=== PATIENT | male | born 1955 | race Caucasian/White ===

== ENCOUNTER → 2019-07-19 | Outpatient (CLI) | payer SELFPAY | PROVIDERS: Family Provider Nurse Practitioner; Visit Provider Internal Medicine Medical Oncology | DX: C91.10 Chronic lymphocytic leukemia of B-cell type not having achieved remission (principal); E03.9 Hypothyroidism, unspecified; I10 Essential (primary) hypertension; E78.5 Hyperlipidemia, unspecified; E11.9 Type 2 diabetes mellitus without complications; R97.20 Elevated prostate specific antigen [PSA] | CPT/HCPCS: 36415; 80053; 83036; 83615; 84443; 85025; 99213 ==

== ENCOUNTER → 2019-09-05 09:35 | Outpatient (BNVA) | payer BC, SELFPAY | PROVIDERS: Family Provider Nurse Practitioner; PCP Nurse Practitioner; Visit Provider Urology | DX: R97.20 Elevated prostate specific antigen [PSA] (principal) | CPT/HCPCS: 81001; 84153 ==

== ENCOUNTER 2019-10-07 13:55 | Outpatient (CLI) | payer BC, SELFPAY ==
[2019-10-07 14:43] LABS: Estmated Average Glucose 192; Hemoglobin A1C 8.3 % (4.0-6.0)
[2019-10-07 14:50] LABS: Alanine Aminotransferase 37 U/L (0-41); Albumin Level 4.6 g/dL (3.5-5.2); Alkaline Phosphatase 86 IU/L (40-130); Anion Gap 17.6 (5-19); Aspartate Amino Transferase 26 U/L (0-40); Blood Urea Nitrogen 15 mg/dL (8-23); Calcium 10.2 mg/dL (8.5-10.5); Carbon Dioxide 26 mmol/L (22-29); Chloride 103 mmol/L (98-107); Globulin 2.9 g/dL (1.3-4.6); Glomerular Filtration Rate 75.7 mL/min (90-130); Glucose 137 mg/dL (65-115); Osmolality Calculated 292 mOsm/kg (285-295); Potassium 4.6 mmol/L (3.5-5.1); Sodium 142 mmol/L (136-145); Thyroid Stimulating Hormone 4.11 uIU/mL (0.27-4.20); Total Bilirubin 0.5 mg/dL (0.15-1.2); Total Protein 7.5 g/dL (6.6-8.7)
== END 2019-10-07 13:56 | disposition home or self-care (01) ==
LOC: LAB 13:58
PROVIDERS: Family Provider Nurse Practitioner; PCP Nurse Practitioner; Visit Provider Internal Medicine Medical Oncology
DX: R97.20 Elevated prostate specific antigen [PSA] (principal); E11.65 Type 2 diabetes mellitus with hyperglycemia; E03.8 Other specified hypothyroidism
CPT/HCPCS: 80053; 83036; 84443

== ENCOUNTER 2019-11-09 16:18 | Outpatient (CLI) | payer BC, SELFPAY ==
[2019-11-09 18:10] LABS: Basophils # 0.2 10^3/uL (0.0-0.1); Basophils % 0.2 %; Eosinophils # 0.8 10^3/uL (0.0-0.8); Eosinophils % 0.8 %; Hematocrit 45.8 % (42.0-52.0); Hemoglobin 14.3 g/dL (11.7-16.6); Lymphocytes # 99.9 10^3/uL (0.8-4.8); Lymphocytes % 89.3 %; Mean Corpuscular HGB Conc 31.2 g/dL (30.0-36.0); Mean Corpuscular Hemoglobin 29.1 pg (28.0-34.0); Mean Corpuscular Volume 93.1 fL (80-94); Mean Platelet Volume 11.1 fL (7.4-10.4); Monocytes # 4.4 10^3/uL (0.2-0.9); Monocytes % 3.9 %; Neutrophils # 6.2 10^3/uL (1.8-7.7); Neutrophils % 5.5 %; Nucleated Red Blood Cells % 0 %; Platelet Count 218 10^3/cmm (130-400); Red Blood Count 4.92 10^6/uL (4.1-5.3)
[2019-11-09 19:08] LABS: Slide Review Slide Review Perform; White Blood Count 111.9 10^3/uL (4.0-10.0)
[2019-11-09 19:26] LABS: Estmated Average Glucose 194; Hemoglobin A1C 8.4 % (4.0-6.0)
[2019-11-09 19:38] LABS: Alanine Aminotransferase 29 U/L (0-41); Albumin Level 4.4 g/dL (3.5-5.2); Alkaline Phosphatase 92 IU/L (40-130); Anion Gap 16.5 (5-19); Aspartate Amino Transferase 32 U/L (0-40); Blood Urea Nitrogen 8 mg/dL (8-23); Calcium 9.5 mg/dL (8.5-10.5); Carbon Dioxide 25 mmol/L (22-29); Chloride 100 mmol/L (98-107); Globulin 2.8 g/dL (1.3-4.6); Glomerular Filtration Rate 85.2 mL/min (90-130); Glucose 165 mg/dL (65-115); Lactate Dehydrogenase 325 U/L (135-225); Osmolality Calculated 284 mOsm/kg (285-295); Potassium 4.5 mmol/L (3.5-5.1); Sodium 137 mmol/L (136-145); Thyroid Stimulating Hormone 4.75 uIU/mL (0.27-4.20); Total Bilirubin 0.3 mg/dL (0.15-1.2); Total Protein 7.2 g/dL (6.6-8.7)
== END 2019-11-09 16:19 | disposition home or self-care (01) ==
LOC: ONCMED 16:20
PROVIDERS: Family Provider Nurse Practitioner; PCP Nurse Practitioner; Visit Provider Internal Medicine Medical Oncology
DX: C91.10 Chronic lymphocytic leukemia of B-cell type not having achieved remission (principal); E03.9 Hypothyroidism, unspecified; E11.9 Type 2 diabetes mellitus without complications
CPT/HCPCS: 36415; 80053; 83036; 83615; 84443; 85025

== ENCOUNTER 2020-02-27 09:49 | Outpatient (CLI) | payer BC, SELFPAY ==
[2020-02-27 10:59] LABS: Basophils # 0.1 10^3/uL (0.0-0.1); Basophils % 0.1 %; Eosinophils # 0.6 10^3/uL (0.0-0.8); Eosinophils % 0.4 %; Hematocrit 43.6 % (42.0-52.0); Hemoglobin 12.8 g/dL (11.7-16.6); Lymphocytes % 92.5 %; Mean Corpuscular HGB Conc 29.4 g/dL (30.0-36.0); Mean Corpuscular Hemoglobin 27.8 pg (28.0-34.0); Mean Corpuscular Volume 94.6 fL (80-94); Mean Platelet Volume 10.5 fL (7.4-10.4); Monocytes # 3.8 10^3/uL (0.2-0.9); Monocytes % 2.6 %; Neutrophils # 5.92 10^3/uL (1.8-7.7); Nucleated Red Blood Cells % 0 %; Platelet Count 195 10^3/cmm (130-400); Red Blood Count 4.61 10^6/uL (4.1-5.3); Red Cell Distribution Width 15.1 % (12.1-15.1)
[2020-02-27 11:18] LABS: Alanine Aminotransferase 25 U/L (0-41); Albumin Level 4.2 g/dL (3.5-5.2); Alkaline Phosphatase 96 IU/L (40-130); Anion Gap 11.7 (5-19); Aspartate Amino Transferase 17 U/L (0-40); Blood Urea Nitrogen 17 mg/dL (8-23); Calcium 9.1 mg/dL (8.5-10.5); Carbon Dioxide 29 mmol/L (22-29); Chloride 103 mmol/L (98-107); Globulin 2.8 g/dL (1.3-4.6); Glomerular Filtration Rate 75.5 mL/min (90-130); Glucose 223 mg/dL (65-115); Lactate Dehydrogenase 320 U/L (135-225); Osmolality Calculated 291 mOsm/kg (285-295); Potassium 4.7 mmol/L (3.5-5.1); Sodium 139 mmol/L (136-145); Total Bilirubin 0.5 mg/dL (0.15-1.2)
[2020-02-27 11:53] LABS: Lymphocytes # 134.5 10^3/uL (0.8-4.8); White Blood Count 145.4 10^3/uL (4.0-10.0)
[2020-02-27 11:54] LABS: Slide Review Slide Review Perform
[2020-02-27 12:14] LABS: Estmated Average Glucose 252; Hemoglobin A1C 10.4 % (4.0-6.0)
[2020-02-27 12:39] LABS: Thyroid Stimulating Hormone 3.24 uIU/mL (0.27-4.20)
--- NOTE | 2020-02-28 07:14 | ONC FU_ITS ---
Dr. Lopez Patient Follow-Up Note Patient: Paulo Musa Unit #: [id number]: 1955 Dicatated By: Ashish Lopez M.D.Date of Visit:Feb 27, 2020 Onc Med Follow-up/Prog Note Chief Complaint: Chronic lymphocytic leukemia. History of Present Illness: This is a 64 year-old man with chronic lymphocytic leukemia, Williamson stage II. He had a scheduled follow-up visit with Siobhan Albert on 09/20/2018. At that time he was complaining of fatigue, and he also reported having pain in the back of his head. His laboratory studies prior to the visit, from 09/17/2018, included CBC showed a significantly elevated white blood cell count at 55,600. The differential included 82% lymphocytes, 14% neutrophils, and 2% monocytes. The hemoglobin was normal at 15.1 g with hematocrit 45.4%. The platelet count was 198,000. The comprehensive metabolic profile showed normal renal function with BUN 8 and creatinine 0.9 mg/dL. Liver enzymes were normal. B12 level was normal. TSH was slightly elevated 5.00 mIU/mL. His screening PSA was also mildly elevated at 7.90 ng/mL. Further evaluation with CT scans of the chest, abdomen, and pelvis on 09/27/2018 showed mild bilateral axillary lymphadenopathy, measuring up to 11 mm on the left and up to 17 mm on the right. There was no hilar or mediastinal adenopathy or mass noted. The spleen was noted to be enlarged at 15.7 cm. There was mild periaortic, inguinal, and iliac chain lymphadenopathy, the largest measuring the range of 13-14 mm. Contrast-enhanced head CT on 09/30/2018 showed a large area of decreased attenuation in the anterior left middle cranial fossa consistent with an arachnoid cyst. It measured 4.6 x 5.8 cm. There was slight mass effect on the left temporal lobe. There was no evidence of enhancing mass or other acute findings. I had seen him initially on 10/20/2018. Further evaluation with bone marrow aspiration/biopsy on 10/28/2018 showed hypercellular marrow with extensive lymphoproliferative process comprising over 80% of the marrow cellularity. Flow cytometry showed a monotypic B-cell population which were positive for CD19, CD20, CD5, CD23, and CD200. They were negative for CD10 and CD123. The findings were felt to be consistent with atypical chronic lymphocytic leukemia. The FISH panel for CLL was unrevealing. 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 Overall, the clinical findings were consistent with Williamson stage II disease. As he was not overtly symptomatic, observation/expectant management was recommended. His other medical illnesses include hypertension, hyperlipidemia, and type II diabetes. He is a nonsmoker. INTERIM HISTORY: Repeat CT scans of the chest, abdomen, and pelvis on 04/04/2019 showed moderate progression of lymphadenopathy within the abdomen and pelvis compared to study from September 2018. The size and number of axillary lymph nodes also was noted to have increased. There did not appear to be any bulky lymphadenopathy, though. There was moderate splenomegaly, but unchanged. As of his follow-up visit in March 2019 the white blood cell count had increased to 74,000, with normal hemoglobin/hematocrit levels and normal platelet count. In the absence of any definite indication for treatment, he continued on observation/expectant management. He is seen for a follow-up visit. He complains that he has been getting little weaker all the time, though as yet he still has normal activity. His ECOG score is 0. He has good appetite. He has no fever or night sweats. He does complain that he is more short of breath. He does not have cough, he does not complain of chest pain. He has no GI complaints other than his bowels tend to be loose with metformin. He has been having more difficulty controlling his bladder, as he is having more frequent urination. He does see Dr. Babcock. He was having some bursitis problems with his left shoulder, though recently that has been better. He has no other joint or bone pain. He has no focal neurologic symptoms. Medications: Jardiance 1 Tablet (of 25 mg) Oral daily, Levothyroxine Sodium 1 Tablet (of 75 mcg) Oral daily, Lisinopril 1 Tablet (of 2.5 mg) Oral daily, metFORMIN HCl 1 Tablet (of 500 mg) Oral b.i.d., Ozempic 1 Subcutaneous q 7 days, Pravastatin Sodium 1 Tablet (of 20 mg) Oral daily Allergies: No Known Allergies. Review of Systems: Constitutional - He says he is feeling a little weaker all the time. He still has normal activity. Appetite is good and weight is stable. No fever or night sweats. ECOG score is 0, ENMT - No sinus congestion/drainage. No mouth sores. No sore throat or difficulty swallowing, Endocrine - He has uncontrolled hyperglycemia. He has been having increase thrist and urinary frequency, Hematologic/Lymphatic - No abnormal bruising or bleeding, Respiratory - No shortness of breath. No cough. No pleuritic pain or hemoptysis, Cardiovascular - No angina pain. No palpitations, Gastrointestinal - No nausea or vomiting. No heartburn or acid reflux. No diarrhea or constipation. No blood in the stool or black stools, Genitourinary (M) - No dysuria or hematuria. He has urinary frequency both day and night. No urgency or incontinence, Musculoskeletal - He was having problems with bursitis in his left shoulder, but recently that has been better. He has no other joint or bone pain, Integumentary - No skin complications, Neurologic - No headache, but he occasionally does have pressure feeling in his head. He does not complain of dizziness. No numbness or tingling. No other focal neurologic symptoms, Psychiatric - No anxiety or depression. No insomnia. Vital Signs: Performed on Feb 27, 2020 11:38 Height - 72.00 in Weight - 305.2 lbs (LOW) BSA - 2.55 sq.m BMI - 41.39 (HIGH) Temperature - 97.6 F (LOW) Pulse - 74 /min Respiration - 20 /min BP - 140/67 mm(hg) O2 Sat - 95 % (LOW) Pain - 1 Physical Examination: Constitutional - He looks pretty good generally, Eyes - Sclerae nonicteric. Conjunctivae clear, ENMT - No lesions noted in the oral cavity, Hematologic/Lymphatic - There is anterior and posterior cervical adenopathy bilaterally and there are somewhat larger occipital area nodes. There are small axillary lymphadenopathy bilaterally, Respiratory - Lungs are clear with good air movement bilaterally, Cardiovascular - Heart rhythm is regular. There is a II/ systolic murmur. There is no gallop, or rub noted, Abdomen - Distended. Liver and spleen are not enlarged. There is no abdominal mass or ascites noted. I do not feel any inguinal adenopathy, Extremities - No edema, Neurologic - No focal neurologic deficits noted. Lab/Imaging: Test performed on Feb 27, 2020 10:08 TSH 3.24 uIU/mL Hemoglobin A1C % 10.4 % Test performed on Feb 27, 2020 10:00 LDH (Total) 320 U/L Sodium 139 mmol/L Potassium 4.7 mmol/L Chloride 103 mmol/L CO2 29 mmol/L Anion Gap 11.7 BUN 17 mg/dL Creatinine 1.0 mg/dL Cr Clearance (Est) 148.05 mL/min eGFR 75.5 mL/min Glucose 223 mg/dL Calcium 9.1 mg/dL Protein, Total 7.0 g/dL Albumin 4.2 g/dL Globulin 2.8 g/dL Bilirubin, Total 0.5 mg/dL ALT (SGPT) 25 U/L AST (SGOT) 17 U/L Alkaline Phosphatase 96 IU/L WBC 145.4 10 3/uL RBC 4.61 10 6/uL HGB 12.8 g/dL HCT 43.6 % MCV 94.6 fL MCH 27.8 pg MCHC 29.4 g/dL RDW 15.1 % Platelet Count 195 10 3/cmm MPV 10.5 fL Neutrophils 5.92 10 3/uL Lymphocytes 134.5 10 3/uL Monocytes 3.8 10 3/uL Eosinophils 0.6 10 3/uL Basophils 0.1 10 3/uL Neutrophil % 4.0 % Lymphocyte % 92.5 % Monocyte % 2.6 % Eosinophil % 0.4 % Basophils % 0.1 % NRBC % 0 % CBC Slide Review Slide Review Perform SLIDE REVIEW AGREES WITH AUTOMATED RESULTS Impression: 1. Patient with chronic lymphocytic leukemia. Based on the CT findings, his disease was Williamson stage II at initial diagnosis in October 2018. He did not appear to be symptomatic. 2. He had CT evidence of a left middle cranial fossa arachnoid cyst measuring 4.6 x 5.8 cm. His other medical illnesses include: 4. Hypertension. 5. Hyperlipidemia. 6. Type II diabetes. 7. He has history of right foot drop following back surgery in 2004. 8. He has had mildly elevated PSA level and mild voiding symptoms. Needle biopsies of the prostate on 03/04/2019 showed benign pathology. In the setting of early stage, asymptomatic chronic lymphocytic leukemia, observation/expectant management was recommended. During initial follow-up there was gradual increase in his lymphocyte count as well as some progression of the lymphadenopathy by CT scan. As he was still not overtly symptomatic, he had continued observation/expectant management. Since his last visit there has been a more significant increase in his lymphocyte count. There also has been further progression of his peripheral lymphadenopathy, and there has been a slight drop in his hemoglobin/hematocrit levels. He also has been showing some decline in his performance status. As such, I suspect that his CLL is becoming symptomatic. However, he also has uncontrolled diabetes, and that also could be a contributing factor. Plan: With his CLL showing significant progression and probably now symptomatic, I did recommend that he consider starting treatment. I reviewed options, the main ones being a trial of therapy with either ibrutinib or acalabrutinib or the venetoclax/obinutuzumab regimen. At this point he prefers to wait at least another 3 months before starting treatment. I have no objection to that, but in the meantime we will need to address his diabetes management, and I will discuss that with Siobhan Albert. Signed By: Ashish Lopez M.D. <<Signature on File>>
== END 2020-02-27 09:50 | disposition home or self-care (01) ==
LOC: ONCMED 09:52
PROVIDERS: PCP Nurse Practitioner; Visit Provider Internal Medicine Medical Oncology
DX: C91.10 Chronic lymphocytic leukemia of B-cell type not having achieved remission (principal); I10 Essential (primary) hypertension; E78.5 Hyperlipidemia, unspecified; E11.9 Type 2 diabetes mellitus without complications; R97.20 Elevated prostate specific antigen [PSA]; E11.65 Type 2 diabetes mellitus with hyperglycemia; R35.0 Frequency of micturition; Z79.84 Long term (current) use of oral hypoglycemic drugs
CPT/HCPCS: 80053; 83036; 83615; 84443; 85025; 99214

== ENCOUNTER → 2020-02-29 16:36 | Outpatient (BNVA) | payer BC, SELFPAY | PROVIDERS: PCP Nurse Practitioner; Visit Provider Urology | DX: R97.20 Elevated prostate specific antigen [PSA] (principal); N40.1 Benign prostatic hyperplasia with lower urinary tract symptoms | CPT/HCPCS: 81001; 84153 ==

== ENCOUNTER 2020-05-28 08:57 | Outpatient (CLI) | payer BC, SELFPAY ==
[2020-05-28 09:43] LABS: Basophils # 0.1 10^3/uL (0.0-0.1); Basophils % 0.1 %; Eosinophils # 0.6 10^3/uL (0.0-0.8); Eosinophils % 0.4 %; Hematocrit 42.7 % (42.0-52.0); Hemoglobin 12.6 g/dL (11.7-16.6); Lymphocytes % 93.2 %; Mean Corpuscular HGB Conc 29.5 g/dL (30.0-36.0); Mean Corpuscular Hemoglobin 27.9 pg (28.0-34.0); Mean Corpuscular Volume 94.5 fL (80-94); Mean Platelet Volume 10.2 fL (7.4-10.4); Monocytes # 4.5 10^3/uL (0.2-0.9); Monocytes % 2.7 %; Neutrophils % 3.4 %; Nucleated Red Blood Cells % 0 %; Platelet Count 193 10^3/cmm (130-400); Red Blood Count 4.52 10^6/uL (4.1-5.3); Red Cell Distribution Width 15.2 % (12.1-15.1)
[2020-05-28 10:11] LABS: Alanine Aminotransferase 25 U/L (0-41); Alkaline Phosphatase 103 IU/L (40-130); Anion Gap 13.8 (5-19); Aspartate Amino Transferase 27 U/L (0-40); Blood Urea Nitrogen 14 mg/dL (8-23); Calcium 9.1 mg/dL (8.5-10.5); Carbon Dioxide 25 mmol/L (22-29); Chloride 107 mmol/L (98-107); Globulin 2.6 g/dL (1.3-4.6); Glomerular Filtration Rate 75.5 mL/min (90-130); Glucose 142 mg/dL (65-115); Lactate Dehydrogenase 353 U/L (135-225); Osmolality Calculated 295 mOsm/kg (285-295); Potassium 4.8 mmol/L (3.5-5.1); Sodium 141 mmol/L (136-145); Total Bilirubin 0.4 mg/dL (0.15-1.2); Total Protein 6.6 g/dL (6.6-8.7)
[2020-05-28 10:37] LABS: Lymphocytes # 153.8 10^3/uL (0.8-4.8)
[2020-05-28 10:39] LABS: White Blood Count 164.9 10^3/uL (4.0-10.0)
[2020-05-28 12:40] LABS: Thyroid Stimulating Hormone 1.94 uIU/mL (0.27-4.20)
[2020-05-28 12:52] LABS: Estmated Average Glucose 186; Hemoglobin A1C 8.1 % (4.0-6.0)
--- NOTE | 2020-05-29 07:23 | ONC FU_ITS ---
Dr. Lopez Patient Follow-Up Note Patient: Paulo Musa Unit #: [id number]: 1955 Dicatated By: Ashish Lopez M.D.Date of Visit:May 28, 2020 Onc Med Follow-up/Prog Note Chief Complaint: Chronic lymphocytic leukemia. History of Present Illness: This is a 64 year-old man with chronic lymphocytic leukemia, Williamson stage II. He had a scheduled follow-up visit with Siobhan Albert on 09/20/2018. At that time he was complaining of fatigue, and he also reported having pain in the back of his head. His laboratory studies prior to the visit, from 09/17/2018, included CBC showed a significantly elevated white blood cell count at 55,600. The differential included 82% lymphocytes, 14% neutrophils, and 2% monocytes. The hemoglobin was normal at 15.1 g with hematocrit 45.4%. The platelet count was 198,000. The comprehensive metabolic profile showed normal renal function with BUN 8 and creatinine 0.9 mg/dL. Liver enzymes were normal. B12 level was normal. TSH was slightly elevated 5.00 mIU/mL. His screening PSA was also mildly elevated at 7.90 ng/mL. Further evaluation with CT scans of the chest, abdomen, and pelvis on 09/27/2018 showed mild bilateral axillary lymphadenopathy, measuring up to 11 mm on the left and up to 17 mm on the right. There was no hilar or mediastinal adenopathy or mass noted. The spleen was noted to be enlarged at 15.7 cm. There was mild periaortic, inguinal, and iliac chain lymphadenopathy, the largest measuring the range of 13-14 mm. Contrast-enhanced head CT on 09/30/2018 showed a large area of decreased attenuation in the anterior left middle cranial fossa consistent with an arachnoid cyst. It measured 4.6 x 5.8 cm. There was slight mass effect on the left temporal lobe. There was no evidence of enhancing mass or other acute findings. I had seen him initially on 10/20/2018. Further evaluation with bone marrow aspiration/biopsy on 10/28/2018 showed hypercellular marrow with extensive lymphoproliferative process comprising over 80% of the marrow cellularity. Flow cytometry showed a monotypic B-cell population which were positive for CD19, CD20, CD5, CD23, and CD200. They were negative for CD10 and CD123. The findings were felt to be consistent with atypical chronic lymphocytic leukemia. The FISH panel for CLL was unrevealing. 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 Overall, the clinical findings were consistent with Williamson stage II disease. As he was not overtly symptomatic, observation/expectant management was recommended. His other medical illnesses include hypertension, hyperlipidemia, and type II diabetes. He is a nonsmoker. INTERIM HISTORY: Repeat CT scans of the chest, abdomen, and pelvis on 04/04/2019 showed moderate progression of lymphadenopathy within the abdomen and pelvis compared to study from September 2018. The size and number of axillary lymph nodes also was noted to have increased. There did not appear to be any bulky lymphadenopathy, though. There was moderate splenomegaly, but unchanged. As of his follow-up visit in March 2019 the white blood cell count had increased to 74,000, with normal hemoglobin/hematocrit levels and normal platelet count. In the absence of any definite indication for treatment, he continued on observation/expectant management. At his follow-up visit in February 2020 there was further increase in the white blood cell count to 145,000. His hemoglobin was down slightly at 12.8 g with platelet count normal at 195,000. He continued to have significant fatigue, but he otherwise appeared stable clinically. At that point I did talk to him about the possibility of starting treatment, but he preferred to continue observation. He is seen for a follow-up visit. He still feels pretty good generally, though his energy is low. He is still working. ECOG score is 1. Appetite is somewhat variable. He has lost weight. He does not have fever or night sweats. He has shortness of breath with more strenuous activity. He does not complain of cough and he has not been having chest pain. He has no GI complaints. Bladder function remains adequate with tamsulosin. He has pain in his left shoulder, attributable to bursitis. He has no other joint or bone pain. He has developed some numbness in the index and middle fingertips of the left hand. He has no other focal neurologic symptoms. Medications: Jardiance 1 Tablet (of 25 mg) Oral daily, Levothyroxine Sodium 1 Tablet (of 75 mcg) Oral daily, Lisinopril 1 Tablet (of 2.5 mg) Oral daily, metFORMIN HCl 1 Tablet (of 500 mg) Oral b.i.d., Ozempic 1 Subcutaneous q 7 days, Pravastatin Sodium 1 Tablet (of 20 mg) Oral daily, Tamsulosin HCl 1 Capsule (of 0.4 mg) Oral daily Allergies: No Known Allergies. Review of Systems: Constitutional - He has low energy, but he is still working. Appetite is variable. Weight is down a few pounds. He has no fever or night sweats. ECOG score is 1, ENMT - He has allergy related sinus symptoms. No mouth sores. No sore throat or difficulty swallowing, Hematologic/Lymphatic - No abnormal bruising or bleeding, Respiratory - He has shortness of breath with more strenuous activity. No cough. No pleuritic pain or hemoptysis, Cardiovascular - No angina pain. No palpitations, Gastrointestinal - No nausea or vomiting. No heartburn or acid reflux. No diarrhea or constipation. No blood in the stool or black stools, Genitourinary (M) - He has some difficulty voiding, but bladder function has improved somewhat with tamsulosin, Musculoskeletal - He has some bursitis in his left shoulder. He has no other joint or bone pain, Integumentary - No skin rash, Neurologic - No headache or dizziness. He has developed some numbness in the index and middle fingertips of the left hand. No other focal neurologic symptoms, Psychiatric - No anxiety or depression. No insomnia. Vital Signs: Performed on May 28, 2020 10:36 Height - 72.00 in Weight - 288.2 lbs (LOW) BSA - 2.49 sq.m BMI - 39.09 (HIGH) Temperature - 97.6 F (LOW) Pulse - 65 /min Respiration - 22 /min BP - 117/63 mm(hg) O2 Sat - 95 % (LOW) Pain - 0 Physical Examination: Constitutional - He looks pretty good generally, Eyes - Sclerae nonicteric. Conjunctivae clear, ENMT - No lesions noted in the oral cavity, Hematologic/Lymphatic - There is bilateral cervical, clavicular, and axillary lymphadenopathy, but not bulky, Respiratory - Lungs are clear with good air movement bilaterally, Cardiovascular - Heart rhythm is regular. There is a II/ systolic murmur. There is no gallop, or rub noted, Abdomen - Distended. Liver and spleen are not enlarged. There is no abdominal mass or ascites noted. There is no inguinal adenopathy noted, Extremities - No edema, Neurologic - No focal neurologic deficits noted. Lab/Imaging: Test performed on May 28, 2020 09:09 LDH (Total) 353 U/L Sodium 141 mmol/L TSH 1.94 uIU/mL Potassium 4.8 mmol/L Chloride 107 mmol/L Est Avg Glucose (eAG) 186 mg/dL CO2 25 mmol/L Anion Gap 13.8 BUN 14 mg/dL Creatinine 1.0 mg/dL Cr Clearance (Est) 139.81 mL/min eGFR 75.5 mL/min Glucose 142 mg/dL Osmolality - Calculated 295 mOsm/kg Calcium 9.1 mg/dL Protein, Total 6.6 g/dL Albumin 4.0 g/dL Globulin 2.6 g/dL Bilirubin, Total 0.4 mg/dL ALT (SGPT) 25 U/L AST (SGOT) 27 U/L Alkaline Phosphatase 103 IU/L Hemoglobin A1C % 8.1 % WBC 164.9 10 3/uL RBC 4.52 10 6/uL HGB 12.6 g/dL HCT 42.7 % MCV 94.5 fL MCH 27.9 pg MCHC 29.5 g/dL RDW 15.2 % Platelet Count 193 10 3/cmm MPV 10.2 fL Neutrophils 5.60 10 3/uL Lymphocytes 153.8 10 3/uL Monocytes 4.5 10 3/uL Eosinophils 0.6 10 3/uL Basophils 0.1 10 3/uL Neutrophil % 3.4 % Lymphocyte % 93.2 % Monocyte % 2.7 % Eosinophil % 0.4 % Basophils % 0.1 % NRBC % 0 % Impression: 1. Patient with chronic lymphocytic leukemia. Based on the CT findings, his disease was Williamson stage II at initial diagnosis in October 2018. He did not appear to be symptomatic. 2. He had CT evidence of a left middle cranial fossa arachnoid cyst measuring 4.6 x 5.8 cm. His other medical illnesses include: 4. Hypertension. 5. Hyperlipidemia. 6. Type II diabetes. 7. He has history of right foot drop following back surgery in 2003. 8. He has had mildly elevated PSA level and mild voiding symptoms. Needle biopsies of the prostate on 03/04/2019 showed benign pathology. In the setting of early stage, asymptomatic chronic lymphocytic leukemia, observation/expectant management was recommended. During initial follow-up there was gradual increase in his lymphocyte count as well as some progression of the lymphadenopathy by CT scan. As he was still not overtly symptomatic, he had continued observation/expectant management. During follow-up there has been evidence of progression of his CLL with increasing lymphocyte count and peripheral lymphadenopathy, development of mild anemia, and increasing fatigue. Plan: We again discussed the possibility of going ahead and starting treatment for the CLL. While there is no urgency, he is continuing to show progression, and he does appear to be having significant fatigue. I reviewed options which may include ibrutinib or acalabrutinib monotherapy versus the obinutuzumab/venetoclax combination. My recommendation would be for the latter, and he is agreeable. I will plan to start treatment sometime within the next few weeks, subject to verification of insurance coverage. In the meantime, he will be given a flu shot and Prevnar vaccination today, and is also advised to get Shingrix and tetanus within the next couple of weeks. Signed By: Ashish Lopez M.D. <<Signature on File>>
== END 2020-05-28 08:58 | disposition home or self-care (01) ==
LOC: ONCMED 09:00
PROVIDERS: PCP Nurse Practitioner; Visit Provider Internal Medicine Medical Oncology
DX: C91.10 Chronic lymphocytic leukemia of B-cell type not having achieved remission (principal); D72.820 Lymphocytosis (symptomatic); G93.0 Cerebral cysts; I10 Essential (primary) hypertension; E78.5 Hyperlipidemia, unspecified; E11.9 Type 2 diabetes mellitus without complications; R97.20 Elevated prostate specific antigen [PSA]; N39.43 Post-void dribbling; Z23 Encounter for immunization
CPT/HCPCS: 36415; 80053; 83036; 83615; 84443; 85025; 90471; 90670; 90686; 99214

== ENCOUNTER 2020-07-26 07:28 | Outpatient (CLI) | payer BC, SELFPAY ==
[2020-07-26 08:37] LABS: Hematocrit 42.1 % (42.0-52.0); Hemoglobin 12.1 g/dL (11.7-16.6); Mean Corpuscular HGB Conc 28.7 g/dL (30.0-36.0); Mean Corpuscular Hemoglobin 27.4 pg (28.0-34.0); Mean Corpuscular Volume 95.5 fL (80-94); Mean Platelet Volume 9.7 fL (7.4-10.4); Platelet Count 194 10^3/cmm (130-400); Red Blood Count 4.41 10^6/uL (4.1-5.3); Red Cell Distribution Width 15.6 % (12.1-15.1)
[2020-07-26 09:13] LABS: Estmated Average Glucose 177; Hemoglobin A1C 7.8 % (4.0-6.0)
[2020-07-26 09:16] LABS: Alanine Aminotransferase 38 U/L (0-41); Albumin Level 4.2 g/dL (3.5-5.2); Alkaline Phosphatase 115 IU/L (40-130); Anion Gap 12.5 (5-19); Aspartate Amino Transferase 36 U/L (0-40); Blood Urea Nitrogen 19 mg/dL (8-23); Calcium 9.5 mg/dL (8.5-10.5); Carbon Dioxide 26 mmol/L (22-29); Chloride 103 mmol/L (98-107); Globulin 2.3 g/dL (1.3-4.6); Glomerular Filtration Rate 67.6 mL/min (90-130); Glucose 185 mg/dL (65-115); Lactate Dehydrogenase 404 U/L (135-225); Osmolality Calculated 289 mOsm/kg (285-295); Potassium 5.5 mmol/L (3.5-5.1); Sodium 136 mmol/L (136-145); Thyroid Stimulating Hormone 4.61 uIU/mL (0.27-4.20); Total Bilirubin 0.4 mg/dL (0.15-1.2); Total Protein 6.5 g/dL (6.6-8.7)
[2020-07-26] MEDS: dexamethasone 20 MG in sodium chloride 0.9% 50 ML 187 MG IV (10:24)
[2020-07-26] MEDS: sodium chloride 0.9% 500 ML 999 ML IV (10:24)
[2020-07-26 10:29] LABS: Absolute Segmented Neutrophil 2.2 10/cmm (1.6-7.1); Eosinophils 0 %; Lymphocytes 95 %; Segmented Neutrophils 1 %; Slide Review Slide Review Perform; White Blood Count 221.1 10^3/uL (4.0-10.0)
[2020-07-26 10:30] LABS: Absolute Neutrophil 2.2 10^3/cmm (1.4-6.5); Blastocytes 4 % (0-0); Platelet Estimate Normal (Normal)
[2020-07-26 10:36] LABS: Total Cells Counted 100 (0-100)
[2020-07-26] MEDS: acetaminophen 325 mg Tablet 650 MG PO (10:44)
[2020-07-26] MEDS: diphenhydrAMINE 50 mg/mL SDV 1mL IVP (10:44)
[2020-07-26 13:23] LABS: Hepatitis A Antibody IgM Non-Reactive (Nonreactive); Hepatitis B Core AB, Total Non-Reactive (Nonreactive); Hepatitis B Surface AB 3.5 (0-8.5); Hepatitis B Surface Antigen Non-Reactive (Nonreactive); Hepatitis C Virus Antibody Non-Reactive (Nonreactive)
[2020-07-26 13:54] LABS: Add Urine Microscopic? NO
[2020-07-26 14:08] LABS: Bilirubin Urine Neg (Negative); Blood Urine Neg (Negative); Glucose Urine UA 4+ (Normal); Ketones Urine Negative (Negative); Leukocyte Esterase Urine Negative (Negative); Nitrate Urine Negative (Negative); Protein Urine Neg (Negative); Specific Gravity, Urine 1.005 (1.005-1.030); Urine Appearance Clear (CLEAR); Urine Color Yellow (Yellow); Urobilinogen Urine Norm (Negative); pH Urine 7 (5-7)
--- NOTE | 2020-07-30 20:53 | ONC FU_ITS ---
[facility] Patient Note Patient: Paulo Musa Unit #: [id number]: [id number] Dictated By: Milad AhumadaDate of Visit: Jul 26, 2020 Onc MED Follow-Up/Prog Note Chief Complaint: Chronic lymphocytic leukemia. History of Present Illness: Mr Musa is a 64 year-old man with chronic lymphocytic leukemia, Williamson stage II. He had a scheduled follow-up visit with Siobhan Albert on 09/20/2018. At that time he was complaining of fatigue, and he also reported having pain in the back of his head. His laboratory studies prior to the visit, from 09/17/2018, included CBC showed a significantly elevated white blood cell count at 55,600. The differential included 82% lymphocytes, 14% neutrophils, and 2% monocytes. The hemoglobin was normal at 15.1 g with hematocrit 45.4%. The platelet count was 198,000. The comprehensive metabolic profile showed normal renal function with BUN 8 and creatinine 0.9 mg/dL. Liver enzymes were normal. B12 level was normal. TSH was slightly elevated 5.00 mIU/mL. His screening PSA was also mildly elevated at 7.90 ng/mL. Further evaluation with CT scans of the chest, abdomen, and pelvis on 09/27/2018 showed mild bilateral axillary lymphadenopathy, measuring up to 11 mm on the left and up to 17 mm on the right. There was no hilar or mediastinal adenopathy or mass noted. The spleen was noted to be enlarged at 15.7 cm. There was mild periaortic, inguinal, and iliac chain lymphadenopathy, the largest measuring the range of 13-14 mm. Contrast-enhanced head CT on 09/30/2018 showed a large area of decreased attenuation in the anterior left middle cranial fossa consistent with an arachnoid cyst. It measured 4.6 x 5.8 cm. There was slight mass effect on the left temporal lobe. There was no evidence of enhancing mass or other acute findings. Dr Lopez had seen him initially on 10/20/2018. Further evaluation with bone marrow aspiration/biopsy on 10/28/2018 showed hypercellular marrow with extensive lymphoproliferative process comprising over 80% of the marrow cellularity. Flow cytometry showed a monotypic B-cell population which were positive for CD19, CD20, CD5, CD23, and CD200. They were negative for CD10 and CD123. The findings were felt to be consistent with atypical chronic lymphocytic leukemia. The FISH panel for CLL was unrevealing. 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 Overall, the clinical findings were consistent with Williamson stage II disease. As he was not overtly symptomatic, observation/expectant management was recommended. His other medical illnesses include hypertension, hyperlipidemia, and type II diabetes. He is a nonsmoker. INTERIM HISTORY: Repeat CT scans of the chest, abdomen, and pelvis on 04/04/2019 showed moderate progression of lymphadenopathy within the abdomen and pelvis compared to study from September 2018. The size and number of axillary lymph nodes also was noted to have increased. There did not appear to be any bulky lymphadenopathy, though. There was moderate splenomegaly, but unchanged. As of his follow-up visit in March 2019 the white blood cell count had increased to 74,000, with normal hemoglobin/hematocrit levels and normal platelet count. In the absence of any definite indication for treatment, he continued on observation/expectant management. At his follow-up visit in February 2020 there was further increase in the white blood cell count to 145,000. His hemoglobin was down slightly at 12.8 g with platelet count normal at 195,000. He continued to have significant fatigue, but he otherwise appeared stable clinically. At that point I did talk to him about the possibility of starting treatment, but he preferred to continue observation. Mr Musa was seen for followup by Dr Lopez in May 2020. Dr. Lopez recommended consideration of proceeding with treatment for CLL. He is continued to show progression and was having significant fatigue at that time. It was recommended that he pursue obinutuzumab/venetoclax combination. This was submitted and finally approved through insurance and he is here today to begin his first cycle. His white count on his May 28, 2020 visit was 164.9. Hemoglobin 12.6 platelets 193,000 and his neutrophil count was 5600. His creatinine was 1.1 and LFTs were normal LDH was 353. TSH was 1.94 hemoglobin A1c was 8.1. Mr. Musa has no new concerns today. He states his fatigue is about the same. He states that he does not think it is any worse. He has been working still and tolerating this well. He reports that he is off the pravastatin as there is concerned about some liver function interactions with his current medications. He denies any new pain. He said no fever or chills. He denies any recent illness. Denies any known Covid exposure or recent testing. He denies any symptoms. He states his bowels and bladder are normal for him. His ECOG is 0. Past Medical History: History of colon polyps Hypercholesterolemia Hypertension Right foot drop Type II diabetes Past Surgical History: Flu vaccine in 2019 - Left Deltoid Prevnar 13 in 2019 - Left Deltoid Prostate biopsy in 2018 Colonoscopy in 2018 Lumbar laminectomy for ruptured disc in 2003 Left clavicle pinning in 1973 Allergies: No Known Allergies. Medications: Jardiance 1 Tablet (of 25 mg) Oral daily Levothyroxine Sodium 1 Tablet (of 75 mcg) Oral daily Lisinopril 1 Tablet (of 2.5 mg) Oral daily metFORMIN HCl 1 Tablet (of 500 mg) Oral b.i.d. Ozempic 1 Subcutaneous q 7 days Pravastatin Sodium 1 Tablet (of 20 mg) Oral daily Tamsulosin HCl 1 Capsule (of 0.4 mg) Oral daily Family History: Mr. Musa's mother is alive. He does not know what happened to his father. Mother is still living and in good health at age 82. A half sister has coronary artery disease. 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 Mr. Musa has never smoked. Mr. Musa reports the following support systems: lives with spouse, significant other, family, or friends. His diet consists of regular meals. He indicates his activity level as: light exercise. He is a nonsmoker. He has had very little alcohol use. Review Of Symptoms: Constitutional Denies fevers, chills, night sweats, excessive fatigue or weight loss. Allergic/Immunologic No reactions. Eyes Denies significant visual changes. No diplopia. No amaurosis. ENMT Denies changes in hearing, sore throat, mouth sores, difficulty or changes in swallowing ability, and/or sinus drainage. Hematologic/Lymphatic Denies easy bruising or bleeding. The patient denies any tender or palpable lymph nodes. Respiratory Denies dyspnea on exertion, chest pain, cough or hemoptysis. Denies orthopnea. Cardiovascular Denies anginal chest pain, palpitations or orthopnea. Gastrointestinal Denies nausea, vomiting, diarrhea, GI bleeding, or constipation. Denies change in bowel habits and/or stool color, no heartburn or early satiety. Genitourinary (M) Denies hematuria, dysuria, increased frequency, urgency, hesitancy or incontinence. Musculoskeletal Denies joint pain, swelling or redness. No decreased range of motion. Integumentary Denies chronic rashes, inflammation, ulcerations or skin changes. Neurologic Denies headache, blurred vision, and no areas of focal weakness or numbness. Normal gait. No sensory problems. Psychiatric Denies insomnia, depression, farrukh or mood swings. Vital Signs: Performed on Jul 26, 2020 09:40 Height - 72.00 in Weight - 288.2 lbs BSA - 2.49 sq.m BMI - 39.09 (HIGH) Temperature - 97.6 F (LOW) Pulse - 66 /min Respiration - 18 /min BP - 109/60 mm(hg) O2 Sat - 95 % (LOW) Pain - 0 Fatigue - 2,0 - Fully active, able to carry on all predisease activities without restrictions. (ECOG) Physical Examination: Constitutional Alert, oriented, no acute distress. Skin pink, warm and dry. Head Normocephalic; atraumatic. Eyes Conjunctivae and sclerae are clear and without icterus. Pupils are reactive and equal. ENMT No oral exudates, ulcers, masses, thrush or mucositis. Oropharynx clear. Tongue normal. Hematologic/Lymphatic No petechiae or purpura. No tender or palpable lymph nodes in the cervical or supraclavicular areas. Respiratory Lungs are clear to auscultation without rhonchi or wheezing. Cardiovascular Regular rate and rhythm of heart without murmurs,clicks, gallops or rubs. Back/Spine Non-tender to palpation. Extremities No visible deformities, no cyanosis, clubbing or edema. Musculoskeletal No tenderness or swelling, normal range of motion without obvious weakness. Integumentary No rashes or lesions. Neurologic No sensory or motor deficits, normal cerebellar function, normal gait. Psychiatric Alert and oriented times three. Coherent speech. Verbalizes understanding of our discussions today. Laboratory:Test performed on Jul 26, 2020 10:41 Hepatitis A Ab, IgM Non-Reactive Hepatitis B Core Ab, Total Non-Reactive Hepatitis B Surf Antigen Non-Reactive Hepatitis B Surface Ab 3.5 STATUS of IMMUINITY Inconsistent with Immunity 0.0 - 8.5 mIU/mL Consistent with Immunity >8.5 mIU/mL Hepatitis C Ab Non-Reactive Test performed on Jul 26, 2020 08:21 LDH (Total) 404 U/L Sodium 136 mmol/L TSH 4.61 uIU/mL Uric Acid 6.0 mg/dL Potassium 5.5 mmol/L Chloride 103 mmol/L Est Avg Glucose (eAG) 177 mg/dL CO2 26 mmol/L Anion Gap 12.5 BUN 19 mg/dL Creatinine 1.1 mg/dL Cr Clearance (Est) 127.1000 mL/min eGFR 67.6 mL/min Glucose 185 mg/dL Osmolality - Calculated 289 mOsm/kg Calcium 9.5 mg/dL Protein, Total 6.5 g/dL Albumin 4.2 g/dL Globulin 2.3 g/dL Bilirubin, Total 0.4 mg/dL ALT (SGPT) 38 U/L AST (SGOT) 36 U/L Alkaline Phosphatase 115 IU/L Hemoglobin A1C % 7.8 % WBC 221.1 10 3/uL Manual Segs % 1 % Manual Bands % 0.0 % RBC 4.41 10 6/uL HGB 12.1 g/dL Manual Lymphs % 95 % Atypical Lymphs % 0.0 % HCT 42.1 % MCV 95.5 fL Total Cells Counted 100 Manual Monos % 0.0 % MCH 27.4 pg Manual Eos % 0 % MCHC 28.7 g/dL Manual Basos % 0.0 % RDW 15.6 % Platelet Count 194 10 3/cmm MPV 9.7 fL Blasts % 4 % CBC Slide Review Slide Review Perform Platelet Estimate Normal Manual Segs Abs 2.2 10/cmm Manual Bands Abs 0.0 10 3/cmm Manual Neutrophils Abs 2.2 10 3/cmm Manual Monocytes Abs 0.0 10 3/cmm Manual Eosinophils Abs 0.0 10 3/cmm Manual Basophils Abs 0.0 10 3/cmm Test performed on May 28, 2020 09:09 Neutrophils 5.60 10 3/uL Lymphocytes 153.8 10 3/uL Monocytes 4.5 10 3/uL Eosinophils 0.6 10 3/uL Basophils 0.1 10 3/uL Neutrophil % 3.4 % Lymphocyte % 93.2 % Monocyte % 2.7 % Eosinophil % 0.4 % Basophils % 0.1 % NRBC % 0 % Impression: 1. Patient with chronic lymphocytic leukemia. Based on the CT findings, his disease was Williamson stage II at initial diagnosis in October 2018. He did not appear to be symptomatic. 2. He had CT evidence of a left middle cranial fossa arachnoid cyst measuring 4.6 x 5.8 cm. His other medical illnesses include: 4. Hypertension. 5. Hyperlipidemia. 6. Type II diabetes. 7. He has history of right foot drop following back surgery in 2003. 8. He has had mildly elevated PSA level and mild voiding symptoms. Needle biopsies of the prostate on 03/04/2019 showed benign pathology. In the setting of early stage, asymptomatic chronic lymphocytic leukemia, observation/expectant management was recommended. During initial follow-up there was gradual increase in his lymphocyte count as well as some progression of the lymphadenopathy by CT scan. As he was still not overtly symptomatic, he had continued observation/expectant management. During follow-up there has been evidence of progression of his CLL with increasing lymphocyte count and peripheral lymphadenopathy, development of mild anemia, and increasing fatigue. He has been offered treatment with obinutuzumab venetoclax. We did get prior authorization from insurance for cycle today. He did complete his flu and Prevnar vaccine but did not obtain the Shingrix vaccine. Plan: PROBLEMS ADDRESSED TODAY 1. CHRONIC LYMPHOCYTIC LEUKEMIA: A. Proceed with obinutuzumab test dose today of 100 mg and will have the remainder of his dose of 900 mg tomorrow. He will receive 1000 g on days 8 and 15 of cycle 1 which is a 28-day cycle. Cycles 2 through 6 will be at 1000 mg on day 1 every 28 days for 5 doses. He will not start the venetoclax until day 22 of cycle 1. His first week will be 20 mg followed by week 2 at 50 mg week 300 mg week 4 at 200 mg week 5 and beyond at 400 mg daily if tolerated. B. He has been given Compazine and lorazepam as needed for home use for antiemetics. C. He was also given allopurinol 300 mg which he did start last night. He also be given prophylactic acyclovir 40 mg daily as well as Bactrim 1 twice daily 2 times weekly. D. Labs from today were reviewed in detail and discussed with Mr. Musa and a copy was given to him. WBC 221.1, hemoglobin 12.1 platelets 194,000 he had 4 blast. His creatinine was 1.1 calcium 9.5 LFTs were normal LDH was 404 TSH is 4.61 hemoglobin A1c is 7.8 and his hepatitis profile was negative. E. He will have weekly CBC CMP and will see him back in 1 week for day 8 follow-up. F. The patient was informed of chemotherapy plan and specific drugs were discussed. We also discussed how chemotherapy works and identified common side effects including alopecia; myelosuppression-including neutropenia, anemia, thrombocytopenia; peripheral neuropathy; fatigue; nausea; diarrhea; constipation; bleeding or bruising; skin changes; mouth sores; drug hypersensitivity/allergic reactions or anaphylaxis and extravasation. They have also been informed how to contact the clinic with side effects or symptoms, including but not limited to fever greater than 100.4???, chills, sore throat, bleeding or bruising that is not explained or mouth sores, cough, nasal discharge, diarrhea, constipation, nausea and/or vomiting not relieved with medications on hand at home, as well as any other concern or question they may have. Our hours are 8:00 a.m. to 4:30 p.m. on Thursday through and 8-12:00 on Thursday. However, someone is sex offender treatment professional 24 hours per day and they have been advised to contact the [facility] at if it is after hours. We have also discussed potential long-term side effects of chemotherapy including secondary cancers, infertility, pulmonary complications, cardiac complications, and again peripheral neuropathy. We have discussed that they certainly need to let us know before taking any antioxidants or herbal or further dietary supplements, as we are unsure of how these agents react with chemotherapy and we request that they avoid these products for now. They were informed that it is okay to take multivitamins at normal doses. They verbally state that they understand to take all medications as directed by their healthcare provider unless otherwise indicated. They also verbalized understanding to leave the pressure dressing on the intravenous administration site for at least two hours after treatment. Instructions for oral care with baking soda and salt water rinses as well as a guide for use of [id number] medication were provided with the treatment plan. They have been given a written patient treatment plan, of which a copy is in the chart, as well as specific drug information. They have no questions and verbalized understanding and are willing to proceed with chemotherapy at this time. The majority of this visit was spent in face to face communication with this patient in regards to the plan of care, side effect identification and management. Signed By: Milad Ahumada-, AOCNP Ashish Lopez MD <<Signature on File>>
== END 2020-07-26 07:29 | disposition home or self-care (01) ==
PROVIDERS: PCP Nurse Practitioner; Visit Provider Nurse Practitioner
DX: C91.10 Chronic lymphocytic leukemia of B-cell type not having achieved remission (principal); D64.9 Anemia, unspecified; R53.83 Other fatigue; E11.65 Type 2 diabetes mellitus with hyperglycemia; G93.0 Cerebral cysts; I10 Essential (primary) hypertension; E78.5 Hyperlipidemia, unspecified; Z79.899 Other long term (current) drug therapy
CPT/HCPCS: 80053; 81003; 83036; 83615; 84443; 84550; 85007; 85025; 86705; 86706; 86709; 86803; 87340; 96367; 96375; 96413; 96415; 99215; J1100; J1200; J7040; J9301

== ENCOUNTER 2020-07-27 05:52 | Outpatient (CLI) | payer BC, SELFPAY ==
[2020-07-27] MEDS: acetaminophen 325 mg Tablet 650 MG PO (08:22)
[2020-07-27] MEDS: dexamethasone 20 MG in sodium chloride 0.9% 50 ML 187 MG IV (08:22)
[2020-07-27] MEDS: sodium chloride 0.9% 500 ML 999 ML IV (08:22)
[2020-07-27] MEDS: sodium chloride 0.9% (100 ml) 200 ML 500 ML (08:39)
[2020-07-27] MEDS: diphenhydrAMINE 50 mg/mL SDV 1mL IVP (08:39)
== END 2020-07-27 05:53 | disposition home or self-care (01) ==
LOC: ONCMED 05:56
PROVIDERS: PCP Nurse Practitioner; Visit Provider Internal Medicine Medical Oncology
DX: Z51.12 Encounter for antineoplastic immunotherapy (principal); C91.10 Chronic lymphocytic leukemia of B-cell type not having achieved remission
CPT/HCPCS: 96367; 96413; 96415; J1100; J1200; J7040; J7050; J9301

== ENCOUNTER 2020-08-07 05:32 | Outpatient (RCR) | payer BC, SELFPAY ==
[2020-08-01 12:26] LABS: Basophils % 0.7 %; Eosinophils # 0.1 10^3/uL (0.0-0.8); Eosinophils % 1.7 %; Hematocrit 42.6 % (42.0-52.0); Hemoglobin 13.9 g/dL (11.7-16.6); Lymphocytes # 1.4 10^3/uL (0.8-4.8); Lymphocytes % 32.9 %; Mean Corpuscular HGB Conc 32.6 g/dL (30.0-36.0); Mean Corpuscular Hemoglobin 28.3 pg (28.0-34.0); Mean Corpuscular Volume 86.8 fL (80-94); Mean Platelet Volume 12.3 fL (7.4-10.4); Monocytes # 0.4 10^3/uL (0.2-0.9); Monocytes % 8.4 %; Neutrophils # 2.32 10^3/uL (1.8-7.7); Neutrophils % 55.3 %; Nucleated Red Blood Cells % 0 %; Platelet Count 40 10^3/cmm (130-400); Red Blood Count 4.91 10^6/uL (4.1-5.3); Red Cell Distribution Width 15.6 % (12.1-15.1); White Blood Count 4.2 10^3/uL (4.0-10.0)
[2020-08-01 12:57] LABS: Alanine Aminotransferase 47 U/L (0-41); Albumin Level 3.2 g/dL (3.5-5.2); Alkaline Phosphatase 122 IU/L (40-130); Aspartate Amino Transferase 27 U/L (0-40); Blood Urea Nitrogen 39 mg/dL (8-23); Calcium 8.8 mg/dL (8.5-10.5); Carbon Dioxide 23 mmol/L (22-29); Chloride 95 mmol/L (98-107); Globulin 2.7 g/dL (1.3-4.6); Glomerular Filtration Rate 61.1 mL/min (90-130); Glucose 456 mg/dL (65-115); Osmolality Calculated 295 mOsm/kg (285-295); Sodium 128 mmol/L (136-145); Total Bilirubin 0.6 mg/dL (0.15-1.2); Total Protein 5.9 g/dL (6.6-8.7)
[2020-08-01 12:59] LABS: Anion Gap 15.3 (5-19); Potassium 5.3 mmol/L (3.5-5.1)
--- NOTE | 2020-08-03 17:50 | ONC FU_ITS ---
[facility] Patient Note Patient: Paulo Musa Unit #: [id number]: 1955 Dictated By: Milad AhumadaDate of Visit: Aug 02, 2020 Onc MED Follow-Up/Prog Note Chief Complaint: Chronic lymphocytic leukemia. History of Present Illness: Mr Musa is a 64 year-old man with chronic lymphocytic leukemia, Williamson stage II. He had a scheduled follow-up visit with Siobhan Albert on 09/20/2018. At that time he was complaining of fatigue, and he also reported having pain in the back of his head. His laboratory studies prior to the visit, from 09/17/2018, included CBC showed a significantly elevated white blood cell count at 55,600. The differential included 82% lymphocytes, 14% neutrophils, and 2% monocytes. The hemoglobin was normal at 15.1 g with hematocrit 45.4%. The platelet count was 198,000. The comprehensive metabolic profile showed normal renal function with BUN 8 and creatinine 0.9 mg/dL. Liver enzymes were normal. B12 level was normal. TSH was slightly elevated 5.00 mIU/mL. His screening PSA was also mildly elevated at 7.90 ng/mL. Further evaluation with CT scans of the chest, abdomen, and pelvis on 09/27/2018 showed mild bilateral axillary lymphadenopathy, measuring up to 11 mm on the left and up to 17 mm on the right. There was no hilar or mediastinal adenopathy or mass noted. The spleen was noted to be enlarged at 15.7 cm. There was mild periaortic, inguinal, and iliac chain lymphadenopathy, the largest measuring the range of 13-14 mm. Contrast-enhanced head CT on 09/30/2018 showed a large area of decreased attenuation in the anterior left middle cranial fossa consistent with an arachnoid cyst. It measured 4.6 x 5.8 cm. There was slight mass effect on the left temporal lobe. There was no evidence of enhancing mass or other acute findings. Dr Lopez had seen him initially on 10/20/2018. Further evaluation with bone marrow aspiration/biopsy on 10/28/2018 showed hypercellular marrow with extensive lymphoproliferative process comprising over 80% of the marrow cellularity. Flow cytometry showed a monotypic B-cell population which were positive for CD19, CD20, CD5, CD23, and CD200. They were negative for CD10 and CD123. The findings were felt to be consistent with atypical chronic lymphocytic leukemia. The FISH panel for CLL was unrevealing. 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 Overall, the clinical findings were consistent with Williamson stage II disease. As he was not overtly symptomatic, observation/expectant management was recommended. His other medical illnesses include hypertension, hyperlipidemia, and type II diabetes. He is a nonsmoker. INTERIM HISTORY: Repeat CT scans of the chest, abdomen, and pelvis on 04/04/2019 showed moderate progression of lymphadenopathy within the abdomen and pelvis compared to study from September 2018. The size and number of axillary lymph nodes also was noted to have increased. There did not appear to be any bulky lymphadenopathy, though. There was moderate splenomegaly, but unchanged. As of his follow-up visit in March 2019 the white blood cell count had increased to 74,000, with normal hemoglobin/hematocrit levels and normal platelet count. In the absence of any definite indication for treatment, he continued on observation/expectant management. At his follow-up visit in February 2020 there was further increase in the white blood cell count to 145,000. His hemoglobin was down slightly at 12.8 g with platelet count normal at 195,000. He continued to have significant fatigue, but he otherwise appeared stable clinically. At that point I did talk to him about the possibility of starting treatment, but he preferred to continue observation. Mr Musa was seen for followup by Dr Lopez in May 2020. Dr. Lopez recommended consideration of proceeding with treatment for CLL. He is continued to show progression and was having significant fatigue at that time. It was recommended that he pursue obinutuzumab/venetoclax combination. He began his first cycle of obinutuzumab on 08/01/2020. He has tolerated it well per his report. He is here today for followup and consideration of day 8 Obinutuzumab. He states overall he feels good but he feels pretty tired. He states he just felt a little washed out last week. States he did not do much. He states he is eating he really does not have much appetite but he is eating good. He denies any nausea or vomiting. He has had no diarrhea or constipation. He states he has had some blurry vision and some increasing neuropathy in the right foot. Has had chronic problems but he just flared over the last few days. He denies any other pain. He states that his nose his mouth is really dry as well. His ECOG is 1. Past Medical History: History of colon polyps Hypercholesterolemia Hypertension Right foot drop Type II diabetes Past Surgical History: Flu vaccine in 2019 - Left Deltoid Prevnar 13 in 2019 - Left Deltoid Prostate biopsy in 2018 Colonoscopy in 2018 Lumbar laminectomy for ruptured disc in 2003 Left clavicle pinning in 1973 Allergies: No Known Allergies. Medications: Jardiance 1 Tablet (of 25 mg) Oral daily Levothyroxine Sodium 1 Tablet (of 75 mcg) Oral daily Lisinopril 1 Tablet (of 2.5 mg) Oral daily metFORMIN HCl 1 Tablet (of 500 mg) Oral b.i.d. Ozempic 1 Subcutaneous q 7 days Pravastatin Sodium 1 Tablet (of 20 mg) Oral daily Tamsulosin HCl 1 Capsule (of 0.4 mg) Oral daily Family History: Mr. Musa's mother is alive. He does not know what happened to his father. Mother is still living and in good health at age 82. A half sister has coronary artery disease. Social History: Mr. Musa is and he is a refrigerated national truck driver. Mr. Musa has never smoked. Mr. Musa reports the following support systems: lives with spouse, significant other, family, or friends. His diet consists of regular meals. He indicates his activity level as: light exercise. He is a nonsmoker. He has had very little alcohol use. Review Of Symptoms: Constitutional Denies fevers, chills, night sweats, excessive fatigue or weight loss. Allergic/Immunologic No reactions. Eyes Denies significant visual changes. No diplopia. No amaurosis. ENMT Denies changes in hearing, sore throat, mouth sores, difficulty or changes in swallowing ability, and/or sinus drainage. Hematologic/Lymphatic Denies easy bruising or bleeding. The patient denies any tender or palpable lymph nodes. Respiratory Denies dyspnea on exertion, chest pain, cough or hemoptysis. Denies orthopnea. Cardiovascular Denies anginal chest pain, palpitations or orthopnea. Gastrointestinal Denies nausea, vomiting, diarrhea, GI bleeding, or constipation. Denies change in bowel habits and/or stool color, no heartburn or early satiety. Genitourinary (M) Denies hematuria, dysuria, increased frequency, urgency, hesitancy or incontinence. Musculoskeletal Denies joint pain, swelling or redness. No decreased range of motion. Integumentary Denies chronic rashes, inflammation, ulcerations or skin changes. Neurologic Denies headache, blurred vision, and no areas of focal weakness or numbness. Normal gait. No sensory problems. Psychiatric Denies insomnia, depression, farrukh or mood swings. Vital Signs: Performed on Aug 02, 2020 11:10 Height - 72.00 in Weight - 284.4 lbs (LOW) BSA - 2.47 sq.m BMI - 38.57 (HIGH) Temperature - 97.6 F (LOW) Pulse - 75 /min Respiration - 18 /min BP - 138/62 mm(hg) O2 Sat - 96 % Pain - 2 Fatigue - 6,1 - No physically strenuous activity, but ambulatory and able to carry out light or sedentary work (e.g. office work, light house work). (ECOG) Physical Examination: Constitutional Alert, oriented, no acute distress. Skin pink, warm and dry. Head Normocephalic; atraumatic. Eyes Conjunctivae and sclerae are clear and without icterus. Pupils are reactive and equal. ENMT No oral exudates, ulcers, masses, thrush or mucositis. Oropharynx clear. Tongue normal. Hematologic/Lymphatic No petechiae or purpura. No tender or palpable lymph nodes in the cervical or supraclavicular areas. Respiratory Lungs are clear to auscultation without rhonchi or wheezing. Cardiovascular Regular rate and rhythm of heart without murmurs,clicks, gallops or rubs. Back/Spine Non-tender to palpation. Extremities No visible deformities, no cyanosis, clubbing or edema. Musculoskeletal No tenderness or swelling, normal range of motion without obvious weakness. Integumentary No rashes or lesions. Neurologic No sensory or motor deficits, normal cerebellar function, normal gait. Psychiatric Alert and oriented times three. Coherent speech. Verbalizes understanding of our discussions today. Laboratory:Test performed on Jul 26, 2020 10:41 Hepatitis A Ab, IgM Non-Reactive Hepatitis B Core Ab, Total Non-Reactive Hepatitis B Surf Antigen Non-Reactive Hepatitis B Surface Ab 3.5 STATUS of IMMUINITY Inconsistent with Immunity 0.0 - 8.5 mIU/mL Consistent with Immunity >8.5 mIU/mL Hepatitis C Ab Non-Reactive Test performed on Jul 26, 2020 08:21 LDH (Total) 404 U/L Sodium 136 mmol/L TSH 4.61 uIU/mL Uric Acid 6.0 mg/dL Potassium 5.5 mmol/L Chloride 103 mmol/L Est Avg Glucose (eAG) 177 mg/dL CO2 26 mmol/L Anion Gap 12.5 BUN 19 mg/dL Creatinine 1.1 mg/dL Cr Clearance (Est) 127.1000 mL/min eGFR 67.6 mL/min Glucose 185 mg/dL Osmolality - Calculated 289 mOsm/kg Calcium 9.5 mg/dL Protein, Total 6.5 g/dL Albumin 4.2 g/dL Globulin 2.3 g/dL Bilirubin, Total 0.4 mg/dL ALT (SGPT) 38 U/L AST (SGOT) 36 U/L Alkaline Phosphatase 115 IU/L Hemoglobin A1C % 7.8 % WBC 221.1 10 3/uL Manual Segs % 1 % Manual Bands % 0.0 % RBC 4.41 10 6/uL HGB 12.1 g/dL Manual Lymphs % 95 % Atypical Lymphs % 0.0 % HCT 42.1 % MCV 95.5 fL Total Cells Counted 100 Manual Monos % 0.0 % MCH 27.4 pg Manual Eos % 0 % MCHC 28.7 g/dL Manual Basos % 0.0 % RDW 15.6 % Platelet Count 194 10 3/cmm MPV 9.7 fL Blasts % 4 % CBC Slide Review Slide Review Perform Platelet Estimate Normal Manual Segs Abs 2.2 10/cmm Manual Bands Abs 0.0 10 3/cmm Manual Neutrophils Abs 2.2 10 3/cmm Manual Monocytes Abs 0.0 10 3/cmm Manual Eosinophils Abs 0.0 10 3/cmm Manual Basophils Abs 0.0 10 3/cmm Test performed on May 28, 2020 09:09 Neutrophils 5.60 10 3/uL Lymphocytes 153.8 10 3/uL Monocytes 4.5 10 3/uL Eosinophils 0.6 10 3/uL Basophils 0.1 10 3/uL Neutrophil % 3.4 % Lymphocyte % 93.2 % Monocyte % 2.7 % Eosinophil % 0.4 % Basophils % 0.1 % NRBC % 0 % Impression: 1. Patient with chronic lymphocytic leukemia. Based on the CT findings, his disease was Williamson stage II at initial diagnosis in October 2018. He did not appear to be symptomatic. 2. He had CT evidence of a left middle cranial fossa arachnoid cyst measuring 4.6 x 5.8 cm. His other medical illnesses include: 4. Hypertension. 5. Hyperlipidemia. 6. Type II diabetes. 7. He has history of right foot drop following back surgery in 2003. 8. He has had mildly elevated PSA level and mild voiding symptoms. Needle biopsies of the prostate on 03/04/2019 showed benign pathology. In the setting of early stage, asymptomatic chronic lymphocytic leukemia, observation/expectant management was recommended. During initial follow-up there was gradual increase in his lymphocyte count as well as some progression of the lymphadenopathy by CT scan. As he was still not overtly symptomatic, he had continued observation/expectant management. During follow-up there has been evidence of progression of his CLL with increasing lymphocyte count and peripheral lymphadenopathy, development of mild anemia, and increasing fatigue. He has been offered treatment with obinutuzumab venetoclax. He began his first cycle on 08/01/2020. He did complete his flu and Prevnar vaccine but did not obtain the Shingrix vaccine. Plan: PROBLEMS ADDRESSED TODAY 1. CHRONIC LYMPHOCYTIC LEUKEMIA: A. hold planned treatment until further notice due to a platelet count of 40,000 verses 194,000 on day 1 and WBC of 4.2 verses 221.2 last week. B. recheck CBC, CMP in 1 week with recheck-early next week if possible. C. He was instructed to continue allopurinol 300 mg daily as well as prophylactic acyclovir 40 mg daily as well as Bactrim 1 twice daily 2 times weekly. D. Labs from today were reviewed in detail and discussed with Mr. Musa and a copy was given to him. WBC 4.2, hemoglobin 13.9 platelets 40,000. His creatinine was 1.2 calcium 8.8. ALT 47 AST 27 alk phos 122, LDH is not available. 2. HYPERGLYCEMIA-RBS 456 TODAY. A. He resumed ozempia in addition to the Jardiance he was already taking. He states he had been off of the of the BF for some time just due to lack of prescription. He did resume it within the last day or so. 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 B. He has been asked to monitor his blood sugar little more often up to twice a day over the next week so he can see if he needs further adjustments as for example with sliding scale. C. Feel like his vision and fatigue and hopefully some of the neuropathy he is having in his right leg will improve as his glucose improves as well. 3 follow-up plan we will see him back in 1 week as indicated above. He has been instructed to contact us in interim should questions or problems arise. Signed By: Milad Ahumada-, AOCNP Ashish Lopez MD <<Signature on File>>
[2020-08-06 09:15] LABS: Basophils % 0.3 %; Eosinophils # 0.3 10^3/uL (0.0-0.8); Eosinophils % 3.6 %; Hematocrit 38.9 % (42.0-52.0); Hemoglobin 12.1 g/dL (11.7-16.6); Lymphocytes # 2.7 10^3/uL (0.8-4.8); Lymphocytes % 30.1 %; Mean Corpuscular HGB Conc 31.1 g/dL (30.0-36.0); Mean Corpuscular Hemoglobin 28.1 pg (28.0-34.0); Mean Corpuscular Volume 90.5 fL (80-94); Mean Platelet Volume 10.2 fL (7.4-10.4); Monocytes # 0.7 10^3/uL (0.2-0.9); Monocytes % 7.8 %; Neutrophils # 5.08 10^3/uL (1.8-7.7); Neutrophils % 57.4 %; Nucleated Red Blood Cells % 0 %; Platelet Count 148 10^3/cmm (130-400); White Blood Count 8.9 10^3/uL (4.0-10.0)
[2020-08-06 10:13] LABS: Alanine Aminotransferase 38 U/L (0-41); Albumin Level 3.5 g/dL (3.5-5.2); Alkaline Phosphatase 102 IU/L (40-130); Anion Gap 12.2 (5-19); Aspartate Amino Transferase 22 U/L (0-40); Blood Urea Nitrogen 21 mg/dL (8-23); Calcium 8.3 mg/dL (8.5-10.5); Carbon Dioxide 26 mmol/L (22-29); Chloride 102 mmol/L (98-107); Globulin 2.5 g/dL (1.3-4.6); Glomerular Filtration Rate 85.2 mL/min (90-130); Glucose 179 mg/dL (65-115); Lactate Dehydrogenase 358 U/L (135-225); Osmolality Calculated 289 mOsm/kg (285-295); Potassium 4.2 mmol/L (3.5-5.1); Sodium 136 mmol/L (136-145); Total Bilirubin 0.9 mg/dL (0.15-1.2)
--- NOTE | 2020-08-07 23:42 | ONC FU_ITS ---
[facility] Patient Note Patient: Paulo Musa Unit #: [id number]: 1955 Dictated By: Milad AhumadaDate of Visit: Aug 07, 2020 Onc MED Follow-Up/Prog Note Chief Complaint: Chronic lymphocytic leukemia. History of Present Illness: Mr Musa is a 64 year-old man with chronic lymphocytic leukemia, Williamson stage II. He had a scheduled follow-up visit with Siobhan Albert on 09/20/2018. At that time he was complaining of fatigue, and he also reported having pain in the back of his head. His laboratory studies prior to the visit, from 09/17/2018, included CBC showed a significantly elevated white blood cell count at 55,600. The differential included 82% lymphocytes, 14% neutrophils, and 2% monocytes. The hemoglobin was normal at 15.1 g with hematocrit 45.4%. The platelet count was 198,000. The comprehensive metabolic profile showed normal renal function with BUN 8 and creatinine 0.9 mg/dL. Liver enzymes were normal. B12 level was normal. TSH was slightly elevated 5.00 mIU/mL. His screening PSA was also mildly elevated at 7.90 ng/mL. Further evaluation with CT scans of the chest, abdomen, and pelvis on 09/27/2018 showed mild bilateral axillary lymphadenopathy, measuring up to 11 mm on the left and up to 17 mm on the right. There was no hilar or mediastinal adenopathy or mass noted. The spleen was noted to be enlarged at 15.7 cm. There was mild periaortic, inguinal, and iliac chain lymphadenopathy, the largest measuring the range of 13-14 mm. Contrast-enhanced head CT on 09/30/2018 showed a large area of decreased attenuation in the anterior left middle cranial fossa consistent with an arachnoid cyst. It measured 4.6 x 5.8 cm. There was slight mass effect on the left temporal lobe. There was no evidence of enhancing mass or other acute findings. Dr Lopez had seen him initially on 10/20/2018. Further evaluation with bone marrow aspiration/biopsy on 10/28/2018 showed hypercellular marrow with extensive lymphoproliferative process comprising over 80% of the marrow cellularity. Flow cytometry showed a monotypic B-cell population which were positive for CD19, CD20, CD5, CD23, and CD200. They were negative for CD10 and CD123. The findings were felt to be consistent with atypical chronic lymphocytic leukemia. The FISH panel for CLL was unrevealing. 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 Overall, the clinical findings were consistent with Williamson stage II disease. As he was not overtly symptomatic, observation/expectant management was recommended. His other medical illnesses include hypertension, hyperlipidemia, and type II diabetes. He is a nonsmoker. INTERIM HISTORY: Repeat CT scans of the chest, abdomen, and pelvis on 04/04/2019 showed moderate progression of lymphadenopathy within the abdomen and pelvis compared to study from September 2018. The size and number of axillary lymph nodes also was noted to have increased. There did not appear to be any bulky lymphadenopathy, though. There was moderate splenomegaly, but unchanged. As of his follow-up visit in March 2019 the white blood cell count had increased to 74,000, with normal hemoglobin/hematocrit levels and normal platelet count. In the absence of any definite indication for treatment, he continued on observation/expectant management. At his follow-up visit in February 2020 there was further increase in the white blood cell count to 145,000. His hemoglobin was down slightly at 12.8 g with platelet count normal at 195,000. He continued to have significant fatigue, but he otherwise appeared stable clinically. At that point I did talk to him about the possibility of starting treatment, but he preferred to continue observation. Mr Musa was seen for followup by Dr Lopez in May 2020. Dr. Lopez recommended consideration of proceeding with treatment for CLL. He had continued to show progression and was having significant fatigue at that time. It was recommended that he pursue obinutuzumab/venetoclax combination. He began his first cycle of obinutuzumab on 07/26/2020. He presented on 08/01/2020for followup and consideration of day 8 Obinutuzumab. He stated overall he felt good but he was pretty tired. His day 8 treatment was held due to a platelet count of 40,000. His ANC was 2320 and his hemoglobin was 13.9. His WBC was 4.2 compared to 2-21.1 on 07/26/2020. Mr. Musa is here today for a 1 week follow-up. He had thrombocytopenia as noted above in response to treatment with obinutuzumab. He only received day 1 and 2 which day 1 was a loading dose and 80 was the 900 mg. He had not yet started venetoclax. It was not due to start until day 22. He states overall he feels good. His energy is good. He is actually planning to go back on the road for his job. He is a over the road dairy truck driver. He states he is feeling strong enough that he feels he can do this. He denies any fever or chills. He has had no bruising or bleeding. He denies any hematuria or hematochezia. He denies any heartburn. He states his appetite is good. He has cut back on his sugar and his random glucose has improved today. He states overall he thinks he is doing well. He denies diarrhea or constipation. He said no shortness of breath or orthopnea. He denies chest pain or palpitations. His ECOG is 1. Past Medical History: History of colon polyps Hypercholesterolemia Hypertension Right foot drop Type II diabetes Past Surgical History: Flu vaccine in 2019 - Left Deltoid Prevnar 13 in 2019 - Left Deltoid Prostate biopsy in 2018 Colonoscopy in 2018 Lumbar laminectomy for ruptured disc in 2003 Left clavicle pinning in 1973 Allergies: No Known Allergies. Medications: Acyclovir 1 Tablet (of 400 mg) Oral daily Allopurinol 1 Tablet (of 300 mg) Oral daily Bactrim DS Tablet Oral Jardiance 1 Tablet (of 25 mg) Oral daily Levothyroxine Sodium 1 Tablet (of 75 mcg) Oral daily Lisinopril 1 Tablet (of 2.5 mg) Oral daily LORazepam 1 Tablet (of 1 mg) Oral daily PRN Ozempic 1 Subcutaneous q 7 days Prochlorperazine Maleate 1 Tablet (of 10 mg) Oral daily PRN Tamsulosin HCl 1 Capsule (of 0.4 mg) Oral daily Family History: Mr. Musa's mother is alive. He does not know what happened to his father. Mother is still living and in good health at age 82. A half sister has coronary artery disease. Social History: Mr. Musa is and he is a dairy truck driver. Mr. Musa has never smoked. Mr. Musa reports the following support systems: lives with spouse, significant other, family, or friends. His diet consists of regular meals. He indicates his activity level as: light exercise. He is a nonsmoker. He has had very little alcohol use. Review Of Symptoms: Constitutional Denies fevers, chills, night sweats, excessive fatigue or weight loss. Allergic/Immunologic No reactions. Eyes Denies significant visual changes. No diplopia. No amaurosis. ENMT Denies changes in hearing, sore throat, mouth sores, difficulty or changes in swallowing ability, and/or sinus drainage. Hematologic/Lymphatic Denies easy bruising or bleeding. The patient denies any tender or palpable lymph nodes. Respiratory Denies dyspnea on exertion, chest pain, cough or hemoptysis. Denies orthopnea. Cardiovascular Denies anginal chest pain, palpitations or orthopnea. Gastrointestinal Denies nausea, vomiting, diarrhea, GI bleeding, or constipation. Denies change in bowel habits and/or stool color, no heartburn or early satiety. Genitourinary (M) Denies hematuria, dysuria, increased frequency, urgency, hesitancy or incontinence. Musculoskeletal Denies joint pain, swelling or redness. No decreased range of motion. Integumentary Denies chronic rashes, inflammation, ulcerations or skin changes. Neurologic Denies headache, blurred vision, and no areas of focal weakness or numbness. Normal gait. No sensory problems. Psychiatric Denies insomnia, depression, farrukh or mood swings. Vital Signs: Performed on Aug 07, 2020 08:47 Height - 72.00 in Weight - 285.4 lbs (HIGH) BSA - 2.48 sq.m BMI - 38.71 (HIGH) Temperature - 97.8 F (LOW) Pulse - 77 /min Respiration - 18 /min BP - 137/70 mm(hg) O2 Sat - 96 % Pain - 0,1 - No physically strenuous activity, but ambulatory and able to carry out light or sedentary work (e.g. office work, light house work). (ECOG) Physical Examination: Constitutional Alert, oriented, no acute distress. Skin pink, warm and dry. Head Normocephalic; atraumatic. Eyes Conjunctivae and sclerae are clear and without icterus. Pupils are reactive and equal. Hematologic/Lymphatic No petechiae or purpura. No tender or palpable lymph nodes in the cervical or supraclavicular areas. Respiratory Lungs are clear to auscultation without rhonchi or wheezing. Cardiovascular Regular rate and rhythm of heart without murmurs,clicks, gallops or rubs. Back/Spine Non-tender to palpation. Extremities No visible deformities, no cyanosis, clubbing or edema. Musculoskeletal No tenderness or swelling, normal range of motion without obvious weakness. Integumentary No rashes or lesions. Neurologic No sensory or motor deficits, normal cerebellar function, normal gait. Psychiatric Alert and oriented times three. Coherent speech. Verbalizes understanding of our discussions today. Laboratory:Test performed on Jul 26, 2020 10:41 Hepatitis A Ab, IgM Non-Reactive Hepatitis B Core Ab, Total Non-Reactive Hepatitis B Surf Antigen Non-Reactive Hepatitis B Surface Ab 3.5 STATUS of IMMUINITY Inconsistent with Immunity 0.0 - 8.5 mIU/mL Consistent with Immunity >8.5 mIU/mL Hepatitis C Ab Non-Reactive Test performed on Jul 26, 2020 08:21 LDH (Total) 404 U/L Sodium 136 mmol/L TSH 4.61 uIU/mL Uric Acid 6.0 mg/dL Potassium 5.5 mmol/L Chloride 103 mmol/L Est Avg Glucose (eAG) 177 mg/dL CO2 26 mmol/L Anion Gap 12.5 BUN 19 mg/dL Creatinine 1.1 mg/dL Cr Clearance (Est) 127.1000 mL/min eGFR 67.6 mL/min Glucose 185 mg/dL Osmolality - Calculated 289 mOsm/kg Calcium 9.5 mg/dL Protein, Total 6.5 g/dL Albumin 4.2 g/dL Globulin 2.3 g/dL Bilirubin, Total 0.4 mg/dL ALT (SGPT) 38 U/L AST (SGOT) 36 U/L Alkaline Phosphatase 115 IU/L Hemoglobin A1C % 7.8 % WBC 221.1 10 3/uL Manual Segs % 1 % Manual Bands % 0.0 % RBC 4.41 10 6/uL HGB 12.1 g/dL Manual Lymphs % 95 % Atypical Lymphs % 0.0 % HCT 42.1 % MCV 95.5 fL Total Cells Counted 100 Manual Monos % 0.0 % MCH 27.4 pg Manual Eos % 0 % MCHC 28.7 g/dL Manual Basos % 0.0 % RDW 15.6 % Platelet Count 194 10 3/cmm MPV 9.7 fL Blasts % 4 % CBC Slide Review Slide Review Perform Platelet Estimate Normal Manual Segs Abs 2.2 10/cmm Manual Bands Abs 0.0 10 3/cmm Manual Neutrophils Abs 2.2 10 3/cmm Manual Monocytes Abs 0.0 10 3/cmm Manual Eosinophils Abs 0.0 10 3/cmm Manual Basophils Abs 0.0 10 3/cmm Test performed on May 28, 2020 09:09 Neutrophils 5.60 10 3/uL Lymphocytes 153.8 10 3/uL Monocytes 4.5 10 3/uL Eosinophils 0.6 10 3/uL Basophils 0.1 10 3/uL Neutrophil % 3.4 % Lymphocyte % 93.2 % Monocyte % 2.7 % Eosinophil % 0.4 % Basophils % 0.1 % NRBC % 0 % Impression: 1. Patient with chronic lymphocytic leukemia. Based on the CT findings, his disease was Williamson stage II at initial diagnosis in October 2018. He did not appear to be symptomatic. 2. He had CT evidence of a left middle cranial fossa arachnoid cyst measuring 4.6 x 5.8 cm. His other medical illnesses include: 4. Hypertension. 5. Hyperlipidemia. 6. Type II diabetes. 7. He has history of right foot drop following back surgery in 2003. 8. He has had mildly elevated PSA level and mild voiding symptoms. Needle biopsies of the prostate on 03/04/2019 showed benign pathology. In the setting of early stage, asymptomatic chronic lymphocytic leukemia, observation/expectant management was recommended. During initial follow-up there was gradual increase in his lymphocyte count as well as some progression of the lymphadenopathy by CT scan. As he was still not overtly symptomatic, he had continued observation/expectant management. During follow-up there has been evidence of progression of his CLL with increasing lymphocyte count and peripheral lymphadenopathy, development of mild anemia, and increasing fatigue. He has been offered treatment with obinutuzumab venetoclax. He began his first cycle on 08/01/2020. He did complete his flu and Prevnar vaccine but did not obtain the Shingrix vaccine. Mr Musa experienced significant thrombocytopenia after his first dose seen of obinutuzumab. His platelet count dropped to 40,000 on day 8 compared to 194,000 on day 1. He also had significant decline in his white blood cell count. On July 26, 2020 (day 1) it was documented to 21.1. On day 8 it was 4.2. His treatment is currently on hold. Plan: PROBLEMS ADDRESSED TODAY 1. CHRONIC LYMPHOCYTIC LEUKEMIA: A. Continue to hold planned treatment of Obinutuzumab and venetoclax (scheduled to start day 22-ON HOLD). B. recheck CBC, CMP in 2 weeks. C. He was instructed to continue allopurinol 300 mg daily as well as prophylactic acyclovir 40 mg daily as well as Bactrim 1 twice daily 2 times weekly. D. Labs from today were reviewed in detail and discussed with Mr. Musa and a copy was given to him. WBC 8.9, hemoglobin 12.1, platelets 148,000 ANC is 5080 potassium 4.2 creatinine 0.9 his LDH is 358 which is improved and his LFTs are normal. Calcium is 8.3. His random glucose is 179. 2. HYPERGLYCEMIA-RBS 179 TODAY. A. He resumed ozempia in addition to the Jardiance he was already taking. B. He has been monitoring his diet and avoiding sugar as much as possible . He states he is cut out his Gatorade. 3. Follow-up plan: A. We will see him back in 2 weeks with labs as indicated above. B. He has been instructed to contact us in interim should questions or problems arise. Signed By: Milad Ahumada-RAFIA, AOKOSTASP Ashish Lopez MD <<Signature on File>>
== END 2020-08-19 23:59 | disposition home or self-care (01) ==
LOC: ONCMED 05:32
PROVIDERS: PCP Nurse Practitioner; Visit Provider Nurse Practitioner
DX: C91.10 Chronic lymphocytic leukemia of B-cell type not having achieved remission (principal); D72.820 Lymphocytosis (symptomatic); G93.0 Cerebral cysts; I10 Essential (primary) hypertension; E78.5 Hyperlipidemia, unspecified; E11.9 Type 2 diabetes mellitus without complications; M21.371 Foot drop, right foot; R97.20 Elevated prostate specific antigen [PSA]; Z86.73 Personal history of transient ischemic attack (TIA), and cerebral infarction without residual deficits; Z79.899 Other long term (current) drug therapy
CPT/HCPCS: 36415; 80053; 83615; 85025; 99214; 99215

== ENCOUNTER 2020-09-13 05:34 | Outpatient (RCR) | payer BC, SELFPAY ==
[2020-08-22 11:28] LABS: Hematocrit 42.6 % (42.0-52.0); Hemoglobin 13.6 g/dL (11.7-16.6); Mean Corpuscular HGB Conc 31.9 g/dL (30.0-36.0); Mean Corpuscular Volume 90.8 fL (80-94); Mean Platelet Volume 10.3 fL (7.4-10.4); Platelet Count 211 10^3/cmm (130-400); Red Blood Count 4.69 10^6/uL (4.1-5.3); Red Cell Distribution Width 16.8 % (12.1-15.1)
[2020-08-22 12:11] LABS: Alanine Aminotransferase 17 U/L (0-41); Albumin Level 4.2 g/dL (3.5-5.2); Alkaline Phosphatase 79 IU/L (40-130); Aspartate Amino Transferase 17 U/L (0-40); Blood Urea Nitrogen 11 mg/dL (8-23); Calcium 9.2 mg/dL (8.5-10.5); Carbon Dioxide 25 mmol/L (22-29); Chloride 104 mmol/L (98-107); Globulin 2.5 g/dL (1.3-4.6); Glomerular Filtration Rate 97.6 mL/min (90-130); Glucose 136 mg/dL (65-115); Osmolality Calculated 287 mOsm/kg (285-295); Sodium 138 mmol/L (136-145); Total Bilirubin 0.6 mg/dL (0.15-1.2); Total Protein 6.7 g/dL (6.6-8.7)
[2020-08-22 12:12] LABS: Anion Gap 13.4 (5-19); Lactate Dehydrogenase 260 U/L (135-225); Potassium 4.4 mmol/L (3.5-5.1)
[2020-08-22 12:13] LABS: Slide Review Slide Review Perform
[2020-08-22 12:14] LABS: Absolute Eosinophils 0.2 10^3/cmm (0.0-0.7); Basophils Absolute 0.2 10^3/cmm (0.0-0.2); Eosinophils 2 %; Lymphocytes 54 %; Monocytes Absolute 0.1 10^3/cmm (0.1-0.6); Segmented Neutrophils 25 %; Total Cells Counted 100 (0-100)
[2020-08-22 12:15] LABS: Anisocytosis 1+; Platelet Estimate Normal (Normal)
--- NOTE | 2020-08-22 19:41 | ONC FU_ITS ---
Dr. Lopez Patient Follow-Up Note Patient: Paulo Musa Unit #: [id number]: 1955 Dicatated By: Ashish Lopez M.D.Date of Visit:Aug 22, 2020 Onc Med Follow-up/Prog Note Chief Complaint: Chronic lymphocytic leukemia. History of Present Illness: This is a 64 year-old man with chronic lymphocytic leukemia, Williamson stage II. He had a scheduled follow-up visit with Siobhan Albert on 09/20/2018. At that time he was complaining of fatigue, and he also reported having pain in the back of his head. His laboratory studies prior to the visit, from 09/17/2018, included CBC showed a significantly elevated white blood cell count at 55,600. The differential included 82% lymphocytes, 14% neutrophils, and 2% monocytes. The hemoglobin was normal at 15.1 g with hematocrit 45.4%. The platelet count was 198,000. The comprehensive metabolic profile showed normal renal function with BUN 8 and creatinine 0.9 mg/dL. Liver enzymes were normal. B12 level was normal. TSH was slightly elevated 5.00 mIU/mL. His screening PSA was also mildly elevated at 7.90 ng/mL. Further evaluation with CT scans of the chest, abdomen, and pelvis on 09/27/2018 showed mild bilateral axillary lymphadenopathy, measuring up to 11 mm on the left and up to 17 mm on the right. There was no hilar or mediastinal adenopathy or mass noted. The spleen was noted to be enlarged at 15.7 cm. There was mild periaortic, inguinal, and iliac chain lymphadenopathy, the largest measuring the range of 13-14 mm. Contrast-enhanced head CT on 09/30/2018 showed a large area of decreased attenuation in the anterior left middle cranial fossa consistent with an arachnoid cyst. It measured 4.6 x 5.8 cm. There was slight mass effect on the left temporal lobe. There was no evidence of enhancing mass or other acute findings. I had seen him initially on 10/20/2018. Further evaluation with bone marrow aspiration/biopsy on 10/28/2018 showed hypercellular marrow with extensive lymphoproliferative process comprising over 80% of the marrow cellularity. Flow cytometry showed a monotypic B-cell population which were positive for CD19, CD20, CD5, CD23, and CD200. They were negative for CD10 and CD123. The findings were felt to be consistent with atypical chronic lymphocytic leukemia. The FISH panel for CLL was unrevealing. 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 Overall, the clinical findings were consistent with Williamson stage II disease. As he was not overtly symptomatic, observation/expectant management was recommended. Repeat CT scans of the chest, abdomen, and pelvis on 04/04/2019 showed moderate progression of lymphadenopathy within the abdomen and pelvis compared to study from September 2018. The size and number of axillary lymph nodes also was noted to have increased. There did not appear to be any bulky lymphadenopathy, though. There was moderate splenomegaly, but unchanged. As of his follow-up visit in March 2019 the white blood cell count had increased to 74,000, with normal hemoglobin/hematocrit levels and normal platelet count. In the absence of any definite indication for treatment, he continued on observation/expectant management. At his follow-up visit in February 2020 there was further increase in the white blood cell count to 145,000. His hemoglobin was down slightly at 12.8 g with platelet count normal at 195,000. He continued to have significant fatigue, but he otherwise appeared stable clinically. At that point I did talk to him about the possibility of starting treatment, but he preferred to continue observation. As of his follow-up visit on 05/28/2020 his white count had increased to 164,000 with hemoglobin stable at 12.6 g and with platelet count normal at 193,000. With increasing lymphadenopathy and increasing fatigue, he was agreeable to initiating treatment with the obinutuzumab/venetoclax regimen. His other medical illnesses include hypertension, hyperlipidemia, and type II diabetes. He is a nonsmoker. INTERIM HISTORY: He began his initial 100 mg dosage of obinutuzumab on 07/26/2020. His baseline white blood cell count was 221,000. He had only very mild, transient infusion reaction and he continue with the day to 900 mg dosage, again with just transient symptoms of infusion reaction. At day 7 his repeat CBC showed a dramatic decline in the white blood cell count of 4200 with absolute neutrophil count 2300. His further treatment was then put on hold. He is seen now for a follow-up visit. He is feeling generally much better compared to his pretreatment status. He still has some fatigue, but his energy overall has improved. His ECOG score is 1. Appetite is not good, but he says he can eat. He does not have fever or night sweats. Within the past week he has developed some sharp pain in his arm muscles. He says it feels like they are tightening up. He has no other joint or bone pain. He has a little bit of shortness of breath with activity. He does not complain of cough and is not been having chest pain. He has no GI complaints. He tends to have bladder incontinence if he tries to hold his urine. Bladder function is otherwise okay. He does not complain of headache or dizziness. He has some numbness in the tips of his left third and fourth fingers. He has no other focal neurologic symptoms. Medications: Acyclovir 1 Tablet (of 400 mg) Oral daily, Allopurinol 1 Tablet (of 300 mg) Oral daily, Bactrim DS Tablet Oral, Jardiance 1 Tablet (of 25 mg) Oral daily, Levothyroxine Sodium 1 Tablet (of 75 mcg) Oral daily, Lisinopril 1 Tablet (of 2.5 mg) Oral daily, LORazepam 1 Tablet (of 1 mg) Oral daily PRN, Ozempic 1 Subcutaneous q 7 days, Prochlorperazine Maleate 1 Tablet (of 10 mg) Oral daily PRN, Tamsulosin HCl 1 Capsule (of 0.4 mg) Oral daily Allergies: No Known Allergies. Vital Signs: Performed on Aug 22, 2020 13:07 Height - 72.00 in Weight - 280.4 lbs (LOW) BSA - 2.46 sq.m BMI - 38.03 (HIGH) Temperature - 97.1 F (LOW) Pulse - 67 /min Respiration - 17 /min BP - 130/65 mm(hg) O2 Sat - 96 % Pain - 0 Physical Examination: Constitutional - He looks pretty good generally, Eyes - Sclerae nonicteric. Conjunctivae clear, ENMT - No lesions noted in the oral cavity, Hematologic/Lymphatic - There is small posterior cervical nodes palpable bilaterally. I do not feel any clavicular or axillary adenopathy, Respiratory - Lungs are clear with good air movement bilaterally, Cardiovascular - Heart rhythm is regular. There is a II/ systolic murmur. There is no gallop, or rub noted, Abdomen - Distended. Liver and spleen are not enlarged. There is no abdominal mass or ascites noted. There is no inguinal adenopathy noted, Extremities - No edema, Neurologic - No focal neurologic deficits noted. Lab/Imaging: Test performed on Aug 22, 2020 11:05 LDH (Total) 260 U/L Sodium 138 mmol/L Potassium 4.4 mmol/L Chloride 104 mmol/L CO2 25 mmol/L Anion Gap 13.4 BUN 11 mg/dL Creatinine 0.8 mg/dL Cr Clearance (Est) 170.03 mL/min eGFR 97.6 mL/min Glucose 136 mg/dL Osmolality - Calculated 287 mOsm/kg Calcium 9.2 mg/dL Protein, Total 6.7 g/dL Albumin 4.2 g/dL Globulin 2.5 g/dL Bilirubin, Total 0.6 mg/dL ALT (SGPT) 17 U/L AST (SGOT) 17 U/L Alkaline Phosphatase 79 IU/L WBC 12.0 10 3/uL Manual Segs % 25 % Manual Bands % 0.0 % RBC 4.69 10 6/uL HGB 13.6 g/dL Manual Lymphs % 54 % Atypical Lymphs % 16.0 % HCT 42.6 % MCV 90.8 fL Total Cells Counted 100 Manual Monos % 1.0 % MCH 29.0 pg Manual Eos % 2 % MCHC 31.9 g/dL Manual Basos % 2.0 % RDW 16.8 % Platelet Count 211 10 3/cmm MPV 10.3 fL CBC Slide Review Slide Review Perform Anisocytosis 1+ Platelet Estimate Normal Manual Segs Abs 3.0 10/cmm Manual Bands Abs 0.0 10 3/cmm Manual Neutrophils Abs 3.0 10 3/cmm Manual Monocytes Abs 0.1 10 3/cmm Manual Eosinophils Abs 0.2 10 3/cmm Manual Basophils Abs 0.2 10 3/cmm Problem List: 1. Chronic lymphocytic leukemia. Based on the CT findings, his disease was Williamson stage II at initial diagnosis in October 2018. He did not appear to be symptomatic. 2. He had CT evidence of a left middle cranial fossa arachnoid cyst measuring 4.6 x 5.8 cm. 3. Hypertension. 4. Hyperlipidemia. 5. Type II diabetes. 6. He has history of right foot drop following back surgery in 2003. 7. He has had mildly elevated PSA level and mild voiding symptoms. Needle biopsies of the prostate on 03/04/2019 showed benign pathology. Problems Addressed with this Encounter and Plan: Chronic lymphocytic leukemia. Based on the CT findings, his disease was Williamson stage II at initial diagnosis in October 2018. He did not appear to be symptomatic. He was initially followed on observation/expectant management. As of his follow-up visit in May 2020 there had been a significant increase in his lymphocyte count. He also had become significantly more fatigued and he had become borderline anemic. As such, he was recommended to begin treatment with obinutuzumab/venetoclax. He began treatment on 07/26/2020. His baseline white blood cell count was 221,000. He completed his initial day 1/day 2 obinutuzumab with just transient symptoms of infusion reaction. At day 7 his white blood cell count had declined dramatically to 4200 with ANC 2300. His further treatment was put on hold. Since then the white blood cell count has come up slightly to 12,000 with ANC 3000. He has had significant symptomatic improvement. He will now resume treatment. He will now begin his dose escalation of venetoclax. He will return in 1 week to continue with cycle 2 of obinutuzumab, which will be given at the full dosage of 1000 mg by IV infusion. His blood counts will be monitored weekly. Signed By: Ashish Lopez M.D. <<Signature on File>>
[2020-08-30 09:46] LABS: Hemoglobin 12.9 g/dL (11.7-16.6); Mean Corpuscular HGB Conc 31.5 g/dL (30.0-36.0); Mean Corpuscular Volume 92.1 fL (80-94); Mean Platelet Volume 10.3 fL (7.4-10.4); Platelet Count 160 10^3/cmm (130-400); Red Blood Count 4.45 10^6/uL (4.1-5.3); Red Cell Distribution Width 16.1 % (12.1-15.1); White Blood Count 10.5 10^3/uL (4.0-10.0)
[2020-08-30 10:22] LABS: Slide Review Slide Review Perform
[2020-08-30 10:23] LABS: Absolute Eosinophils 0.2 10^3/cmm (0.0-0.7); Eosinophils 2 %; Lymphocytes 46 %; Monocytes Absolute 0.3 10^3/cmm (0.1-0.6); Platelet Estimate Normal (Normal); Segmented Neutrophils 29 %; Total Cells Counted 100 (0-100)
[2020-09-07 08:28] LABS: Basophils % 0.6 %; Eosinophils # 0.1 10^3/uL (0.0-0.8); Eosinophils % 1.4 %; Hematocrit 40.6 % (42.0-52.0); Hemoglobin 13.2 g/dL (11.7-16.6); Lymphocytes # 1.9 10^3/uL (0.8-4.8); Mean Corpuscular HGB Conc 32.5 g/dL (30.0-36.0); Mean Corpuscular Hemoglobin 29.5 pg (28.0-34.0); Mean Corpuscular Volume 90.8 fL (80-94); Mean Platelet Volume 10.2 fL (7.4-10.4); Monocytes # 0.5 10^3/uL (0.2-0.9); Monocytes % 8.9 %; Neutrophils # 2.64 10^3/uL (1.8-7.7); Neutrophils % 51.9 %; Nucleated Red Blood Cells % 0 %; Platelet Count 156 10^3/cmm (130-400); Red Blood Count 4.47 10^6/uL (4.1-5.3); Red Cell Distribution Width 15.4 % (12.1-15.1); White Blood Count 5.1 10^3/uL (4.0-10.0)
[2020-09-07] MEDS: acetaminophen 325 mg Tablet 650 MG PO (09:28)
[2020-09-07] MEDS: sodium chloride 0.9% 500 ML 999 ML IV (09:40)
[2020-09-07] MEDS: dexamethasone 20 MG in sodium chloride 0.9% 50 ML 187 MG IV (09:58)
[2020-09-07] MEDS: EPINEPHrine 1 mg/mL INJ 0.5 MG IM (12:13)
[2020-09-13 14:09] LABS: Basophils % 0.2 %; Hematocrit 41.9 % (42.0-52.0); Hemoglobin 13.5 g/dL (11.7-16.6); Lymphocytes # 0.6 10^3/uL (0.8-4.8); Lymphocytes % 13.7 %; Mean Corpuscular HGB Conc 32.2 g/dL (30.0-36.0); Mean Corpuscular Hemoglobin 29.4 pg (28.0-34.0); Mean Corpuscular Volume 91.3 fL (80-94); Mean Platelet Volume 9.4 fL (7.4-10.4); Monocytes # 0.4 10^3/uL (0.2-0.9); Monocytes % 10.2 %; Neutrophils # 3.06 10^3/uL (1.8-7.7); Neutrophils % 74.7 %; Nucleated Red Blood Cells % 0 %; Platelet Count 248 10^3/cmm (130-400); Red Blood Count 4.59 10^6/uL (4.1-5.3); Red Cell Distribution Width 14.6 % (12.1-15.1); White Blood Count 4.1 10^3/uL (4.0-10.0)
== END 2020-09-16 23:59 | disposition home or self-care (01) ==
LOC: ONCMED 05:34
PROVIDERS: Internal Medicine Medical Oncology; PCP Nurse Practitioner; Visit Provider Nurse Practitioner
DX: Z51.11 Encounter for antineoplastic chemotherapy (principal); C91.10 Chronic lymphocytic leukemia of B-cell type not having achieved remission; D72.820 Lymphocytosis (symptomatic); I10 Essential (primary) hypertension; E78.5 Hyperlipidemia, unspecified; E11.9 Type 2 diabetes mellitus without complications; R97.20 Elevated prostate specific antigen [PSA]; R39.198 Other difficulties with micturition; M21.371 Foot drop, right foot; Z79.899 Other long term (current) drug therapy
CPT/HCPCS: 36415; 80053; 83615; 85007; 85025; 96367; 96372; 96375; 96413; 96415; 99214; J0171; J1100; J1200; J2930; J7040; J7050; J9301

== ENCOUNTER 2020-10-04 05:24 | Outpatient (RCR) | payer BC, SELFPAY ==
[2020-09-20 14:19] LABS: Basophils % 0.3 %; Eosinophils % 0.5 %; Hematocrit 41.5 % (42.0-52.0); Hemoglobin 13.6 g/dL (11.7-16.6); Lymphocytes # 1.8 10^3/uL (0.8-4.8); Lymphocytes % 29.9 %; Mean Corpuscular HGB Conc 32.8 g/dL (30.0-36.0); Mean Corpuscular Hemoglobin 30.1 pg (28.0-34.0); Mean Corpuscular Volume 91.8 fL (80-94); Mean Platelet Volume 9.2 fL (7.4-10.4); Monocytes # 0.5 10^3/uL (0.2-0.9); Monocytes % 8.9 %; Neutrophils # 3.59 10^3/uL (1.8-7.7); Neutrophils % 60.1 %; Nucleated Red Blood Cells % 0 %; Platelet Count 276 10^3/cmm (130-400); Red Blood Count 4.52 10^6/uL (4.1-5.3); Red Cell Distribution Width 14.7 % (12.1-15.1)
[2020-09-27 09:16] LABS: Basophils % 0.2 %; Eosinophils % 0.7 %; Hematocrit 43.2 % (42.0-52.0); Lymphocytes # 1.9 10^3/uL (0.8-4.8); Lymphocytes % 44.1 %; Mean Corpuscular HGB Conc 32.4 g/dL (30.0-36.0); Mean Corpuscular Hemoglobin 29.7 pg (28.0-34.0); Mean Corpuscular Volume 91.7 fL (80-94); Mean Platelet Volume 9.7 fL (7.4-10.4); Monocytes # 0.6 10^3/uL (0.2-0.9); Monocytes % 14.2 %; Neutrophils # 1.75 10^3/uL (1.8-7.7); Neutrophils % 40.6 %; Nucleated Red Blood Cells % 0 %; Platelet Count 225 10^3/cmm (130-400); Red Blood Count 4.71 10^6/uL (4.1-5.3); Red Cell Distribution Width 14.2 % (12.1-15.1); White Blood Count 4.3 10^3/uL (4.0-10.0)
[2020-09-27 09:34] LABS: Alanine Aminotransferase 16 U/L (0-41); Albumin Level 3.9 g/dL (3.5-5.2); Alkaline Phosphatase 69 IU/L (40-130); Anion Gap 11.1 (5-19); Aspartate Amino Transferase 15 U/L (0-40); Blood Urea Nitrogen 14 mg/dL (8-23); Calcium 9.3 mg/dL (8.5-10.5); Carbon Dioxide 26 mmol/L (22-29); Chloride 103 mmol/L (98-107); Globulin 2.3 g/dL (1.3-4.6); Glomerular Filtration Rate 97.6 mL/min (90-130); Glucose 143 mg/dL (65-115); Lactate Dehydrogenase 198 U/L (135-225); Osmolality Calculated 285 mOsm/kg (285-295); Potassium 4.1 mmol/L (3.5-5.1); Sodium 136 mmol/L (136-145); Total Bilirubin 0.4 mg/dL (0.15-1.2); Total Protein 6.2 g/dL (6.6-8.7)
[2020-10-03 13:32] LABS: Basophils % 0.2 %; Eosinophils # 0.1 10^3/uL (0.0-0.8); Eosinophils % 1.6 %; Hematocrit 43.8 % (42.0-52.0); Hemoglobin 14.1 g/dL (11.7-16.6); Lymphocytes # 1.7 10^3/uL (0.8-4.8); Lymphocytes % 39.9 %; Mean Corpuscular HGB Conc 32.2 g/dL (30.0-36.0); Mean Corpuscular Hemoglobin 29.6 pg (28.0-34.0); Mean Platelet Volume 9.6 fL (7.4-10.4); Monocytes # 0.6 10^3/uL (0.2-0.9); Monocytes % 12.7 %; Neutrophils # 1.97 10^3/uL (1.8-7.7); Neutrophils % 45.4 %; Nucleated Red Blood Cells % 0 %; Platelet Count 195 10^3/cmm (130-400); Red Blood Count 4.76 10^6/uL (4.1-5.3); Red Cell Distribution Width 14.2 % (12.1-15.1); White Blood Count 4.3 10^3/uL (4.0-10.0)
[2020-10-03 13:59] LABS: Alanine Aminotransferase 19 U/L (0-41); Alkaline Phosphatase 72 IU/L (40-130); Anion Gap 12.2 (5-19); Aspartate Amino Transferase 17 U/L (0-40); Blood Urea Nitrogen 13 mg/dL (8-23); Calcium 9.1 mg/dL (8.5-10.5); Carbon Dioxide 27 mmol/L (22-29); Chloride 102 mmol/L (98-107); Globulin 2.2 g/dL (1.3-4.6); Glomerular Filtration Rate 97.6 mL/min (90-130); Glucose 255 mg/dL (65-115); Lactate Dehydrogenase 172 U/L (135-225); Osmolality Calculated 293 mOsm/kg (285-295); Potassium 4.2 mmol/L (3.5-5.1); Sodium 137 mmol/L (136-145); Total Bilirubin 0.5 mg/dL (0.15-1.2); Total Protein 6.2 g/dL (6.6-8.7)
--- NOTE | 2020-10-04 12:05 | ONC FU_ITS ---
Dr. Lopez Patient Follow-Up Note Patient: Paulo Musa Unit #: [id number]: 1955 Dicatated By: Ashish Lopez M.D.Date of Visit:Oct 04, 2020 Onc Med Follow-up/Prog Note Chief Complaint: Chronic lymphocytic leukemia. History of Present Illness: This is a 64 year-old man with chronic lymphocytic leukemia, Williamson stage II at initial diagnosis in October 2018. He had a scheduled follow-up visit with Siobhan Albert on 09/20/2018. At that time he was complaining of fatigue, and he also reported having pain in the back of his head. His laboratory studies prior to the visit, from 09/17/2018, included CBC showed a significantly elevated white blood cell count at 55,600. The differential included 82% lymphocytes, 14% neutrophils, and 2% monocytes. The hemoglobin was normal at 15.1 g with hematocrit 45.4%. The platelet count was 198,000. The comprehensive metabolic profile showed normal renal function with BUN 8 and creatinine 0.9 mg/dL. Liver enzymes were normal. B12 level was normal. TSH was slightly elevated 5.00 mIU/mL. His screening PSA was also mildly elevated at 7.90 ng/mL. Further evaluation with CT scans of the chest, abdomen, and pelvis on 09/27/2018 showed mild bilateral axillary lymphadenopathy, measuring up to 11 mm on the left and up to 17 mm on the right. There was no hilar or mediastinal adenopathy or mass noted. The spleen was noted to be enlarged at 15.7 cm. There was mild periaortic, inguinal, and iliac chain lymphadenopathy, the largest measuring the range of 13-14 mm. Contrast-enhanced head CT on 09/30/2018 showed a large area of decreased attenuation in the anterior left middle cranial fossa consistent with an arachnoid cyst. It measured 4.6 x 5.8 cm. There was slight mass effect on the left temporal lobe. There was no evidence of enhancing mass or other acute findings. I had seen him initially on 10/20/2018. Further evaluation with bone marrow aspiration/biopsy on 10/28/2018 showed hypercellular marrow with extensive lymphoproliferative process comprising over 80% of the marrow cellularity. Flow cytometry showed a monotypic B-cell population which were positive for CD19, CD20, CD5, CD23, and CD200. They were negative for CD10 and CD123. The findings were felt to be consistent with atypical chronic lymphocytic leukemia. The FISH panel for CLL was unrevealing. 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 Overall, the clinical findings were consistent with Williamson stage II disease. As he was not overtly symptomatic, observation/expectant management was recommended. Repeat CT scans of the chest, abdomen, and pelvis on 04/04/2019 showed moderate progression of lymphadenopathy within the abdomen and pelvis compared to study from September 2018. The size and number of axillary lymph nodes also was noted to have increased. There did not appear to be any bulky lymphadenopathy, though. There was moderate splenomegaly, but unchanged. As of his follow-up visit in March 2019 the white blood cell count had increased to 74,000, with normal hemoglobin/hematocrit levels and normal platelet count. In the absence of any definite indication for treatment, he continued on observation/expectant management. At his follow-up visit in February 2020 there was further increase in the white blood cell count to 145,000. His hemoglobin was down slightly at 12.8 g with platelet count normal at 195,000. He continued to have significant fatigue, but he otherwise appeared stable clinically. At that point I did talk to him about the possibility of starting treatment, but he preferred to continue observation. As of his follow-up visit on 05/28/2020 his white count had increased to 164,000 with hemoglobin stable at 12.6 g and with platelet count normal at 193,000. With increasing lymphadenopathy and increasing fatigue, he was agreeable to initiating treatment with the obinutuzumab/venetoclax regimen. His other medical illnesses include hypertension, hyperlipidemia, and type II diabetes. He is a nonsmoker. INTERIM HISTORY: He began his initial 100 mg dosage of obinutuzumab on 07/26/2020. His baseline white blood cell count was 221,000. He had only very mild, transient infusion reaction and he continue with the day to 900 mg dosage, again with just transient symptoms of infusion reaction. At day 7 his repeat CBC showed a dramatic decline in the white blood cell count of 4200 with absolute neutrophil count 2300. His further treatment was then put on hold. At his follow-up visit on 08/22/2020 his white count was back up to 12,000 with absolute neutrophil count 3000. Hemoglobin is up to 13.6 g and platelet count was normal at 211,000. He continued venetoclax with the dosage limited to 100 mg daily. He continued with cycle 2 of obinutuzumab on 09/07/2020. It was complicated by a significant infusion reaction, which included throat swelling and difficulty breathing. It resolved with steroid therapy. He is seen now for a follow-up visit. He has been feeling good generally. He still has some fatigue, but is energy overall is much better than it was prior to starting treatment. His ECOG score is 0. He does not have good appetite, but he does eat. He has not had fever or night sweats. He has not had sore mouth or throat. He has some shortness of breath with activity. He does not have resting dyspnea, cough, or chest pain. He has no GI or complaints other than frequent urination. He has no significant joint or bone pain. He does not complain of headache or dizziness. He has some numbness in the middle and ring fingers on the left hand. He reports having super dry skin, mainly on his arms. Medications: Acyclovir 1 Tablet (of 400 mg) Oral daily, Allopurinol 1 Tablet (of 300 mg) Oral daily, Bactrim DS Tablet Oral, Jardiance 1 Tablet (of 25 mg) Oral daily, Levothyroxine Sodium 1 Tablet (of 75 mcg) Oral daily, Lisinopril 1 Tablet (of 2.5 mg) Oral daily, LORazepam 1 Tablet (of 1 mg) Oral daily PRN, Ozempic 1 Subcutaneous q 7 days, Prochlorperazine Maleate 1 Tablet (of 10 mg) Oral daily PRN, Tamsulosin HCl 1 Capsule (of 0.4 mg) Oral daily Allergies: No Known Allergies. Vital Signs: Performed on Oct 04, 2020 08:34 Height - 72.00 in Weight - 282.6 lbs (HIGH) BSA - 2.47 sq.m BMI - 38.33 (HIGH) Temperature - 96.9 F (LOW) Pulse - 62 /min Respiration - 18 /min BP - 127/72 mm(hg) O2 Sat - 96 % Pain - 0 Fatigue - 0 Physical Examination: Constitutional - He looks good generally, Eyes - Sclerae nonicteric. Conjunctivae clear, ENMT - No lesions noted in the oral cavity, Hematologic/Lymphatic - No cervical, clavicular, or axillary adenopathy noted, Respiratory - Lungs are clear with good air movement bilaterally, Cardiovascular - Heart rhythm is regular. There is a II/ systolic murmur. There is no gallop, or rub noted, Abdomen - Moderately distended. Liver and spleen are not enlarged. There is no abdominal mass or ascites noted. There is no inguinal adenopathy noted, Extremities - No edema. There is chronic purpura on both arm, Integumentary - No skin eruption noted, Neurologic - No focal neurologic deficits noted. Lab/Imaging: Test performed on Sep 27, 2020 08:43 LDH (Total) 198 U/L Sodium 136 mmol/L Potassium 4.1 mmol/L Chloride 103 mmol/L CO2 26 mmol/L Anion Gap 11.1 BUN 14 mg/dL Creatinine 0.8 mg/dL Cr Clearance (Est) 170.0300 mL/min eGFR 97.6 mL/min Glucose 143 mg/dL Osmolality - Calculated 285 mOsm/kg Calcium 9.3 mg/dL Protein, Total 6.2 g/dL Albumin 3.9 g/dL Globulin 2.3 g/dL Bilirubin, Total 0.4 mg/dL ALT (SGPT) 16 U/L AST (SGOT) 15 U/L Alkaline Phosphatase 69 IU/L WBC 4.3 10 3/uL RBC 4.71 10 6/uL HGB 14.0 g/dL HCT 43.2 % MCV 91.7 fL MCH 29.7 pg MCHC 32.4 g/dL RDW 14.2 % Platelet Count 225 10 3/cmm MPV 9.7 fL Neutrophils 1.75 10 3/uL Lymphocytes 1.9 10 3/uL Monocytes 0.6 10 3/uL Eosinophils 0.0 10 3/uL Basophils 0.0 10 3/uL Neutrophil % 40.6 % Lymphocyte % 44.1 % Monocyte % 14.2 % Eosinophil % 0.7 % Basophils % 0.2 % NRBC % 0 % Problem List: 1. Chronic lymphocytic leukemia. Based on the CT findings, his disease was Williamson stage II at initial diagnosis in October 2018. He did not appear to be symptomatic. 2. He had CT evidence of a left middle cranial fossa arachnoid cyst measuring 4.6 x 5.8 cm. 3. Hypertension. 4. Hyperlipidemia. 5. Type II diabetes. 6. He has history of right foot drop following back surgery in 2003. 7. He has had mildly elevated PSA level and mild voiding symptoms. Needle biopsies of the prostate on 03/04/2019 showed benign pathology. Problems Addressed with this Encounter and Plan: Patient with chronic lymphocytic leukemia. Based on the CT findings, his disease was Williamson stage II at initial diagnosis in October 2018. He did not appear to be symptomatic. He was initially followed on observation/expectant management. As of his follow-up visit in May 2020 there had been a significant increase in his lymphocyte count. He also had become significantly more fatigued and he had become borderline anemic. As such, he was recommended to begin treatment with obinutuzumab/venetoclax. He began treatment on 07/26/2020. His baseline white blood cell count was 221,000. He completed his initial day 1/day 2 obinutuzumab with just transient symptoms of infusion reaction. At day 7 his white blood cell count had declined dramatically to 4200 with ANC 2300. His further treatment was put on hold. As of white blood cell count had come up to 12,000 with ANC 3000 and continued his dose escalation of venetoclax up to 100 mg daily. He continued with cycle 2 of obinutuzumab on 09/07/2020. It was complicated by a more severe infusion reaction, which included throat swelling and difficulty breathing. It resolved on steroid therapy. He has since then continued the venetoclax at 100 mg daily. He is doing well clinically and his blood counts now are in normal range. Given the severity of his reaction, I am not going to attempt any further treatment with the obinutuzumab, but he will continue the venetoclax at 100 mg daily. His blood counts will be checked monthly. I will see him again in 3 months. Signed By: Ashish Lopez M.D. <<Signature on File>>
== END 2020-10-17 23:59 | disposition home or self-care (01) ==
LOC: ONCMED 05:24
PROVIDERS: Nurse Practitioner; PCP Nurse Practitioner; Visit Provider Internal Medicine Medical Oncology
DX: C91.10 Chronic lymphocytic leukemia of B-cell type not having achieved remission (principal); I10 Essential (primary) hypertension; E78.5 Hyperlipidemia, unspecified; E11.9 Type 2 diabetes mellitus without complications; M21.371 Foot drop, right foot; R97.20 Elevated prostate specific antigen [PSA]; G93.0 Cerebral cysts; Z79.899 Other long term (current) drug therapy
CPT/HCPCS: 36415; 80053; 83615; 85025; 99214

== ENCOUNTER 2020-10-30 06:33 | Outpatient (RCR) | payer BC, SELFPAY ==
[2020-10-30 11:26] LABS: Basophils % 0.1 %; Eosinophils # 0.1 10^3/uL (0.0-0.8); Eosinophils % 0.7 %; Hematocrit 47.1 % (42.0-52.0); Hemoglobin 15.3 g/dL (11.7-16.6); Lymphocytes # 2.3 10^3/uL (0.8-4.8); Lymphocytes % 33.4 %; Mean Corpuscular HGB Conc 32.5 g/dL (30.0-36.0); Mean Corpuscular Hemoglobin 29.3 pg (28.0-34.0); Mean Corpuscular Volume 90.2 fL (80-94); Mean Platelet Volume 9.9 fL (7.4-10.4); Monocytes # 0.6 10^3/uL (0.2-0.9); Monocytes % 9.5 %; Neutrophils # 3.77 10^3/uL (1.8-7.7); Nucleated Red Blood Cells % 0 %; Platelet Count 247 10^3/cmm (130-400); Red Blood Count 5.22 10^6/uL (4.1-5.3); Red Cell Distribution Width 13.2 % (12.1-15.1); White Blood Count 6.7 10^3/uL (4.0-10.0)
== END 2020-11-16 23:59 | disposition home or self-care (01) ==
LOC: ONCMED 06:33
PROVIDERS: PCP Nurse Practitioner; Visit Provider Internal Medicine Medical Oncology
DX: C91.10 Chronic lymphocytic leukemia of B-cell type not having achieved remission (principal); D72.820 Lymphocytosis (symptomatic); R97.20 Elevated prostate specific antigen [PSA]; R79.89 Other specified abnormal findings of blood chemistry
CPT/HCPCS: 36415; 81003; 84153; 85025

== ENCOUNTER 2020-11-29 06:28 | Outpatient (RCR) | payer BC, SELFPAY ==
[2020-11-29 13:56] LABS: Basophils % 0.2 %; Eosinophils % 0.6 %; Hemoglobin 15.7 g/dL (11.7-16.6); Lymphocytes # 2.6 10^3/uL (0.8-4.8); Lymphocytes % 39.8 %; Mean Corpuscular HGB Conc 32.7 g/dL (30.0-36.0); Mean Corpuscular Hemoglobin 28.9 pg (28.0-34.0); Mean Corpuscular Volume 88.2 fL (80-94); Mean Platelet Volume 9.8 fL (7.4-10.4); Monocytes # 0.5 10^3/uL (0.2-0.9); Monocytes % 7.6 %; Neutrophils # 3.32 10^3/uL (1.8-7.7); Neutrophils % 51.3 %; Nucleated Red Blood Cells % 0 %; Platelet Count 175 10^3/cmm (130-400); Red Blood Count 5.44 10^6/uL (4.1-5.3); Red Cell Distribution Width 13.4 % (12.1-15.1); White Blood Count 6.5 10^3/uL (4.0-10.0)
[2020-11-29 14:13] LABS: Alanine Aminotransferase 21 U/L (0-41); Albumin Level 4.2 g/dL (3.5-5.2); Alkaline Phosphatase 82 IU/L (40-130); Aspartate Amino Transferase 20 U/L (0-40); Blood Urea Nitrogen 16 mg/dL (8-23); Calcium 8.8 mg/dL (8.5-10.5); Carbon Dioxide 26 mmol/L (22-29); Chloride 101 mmol/L (98-107); Chol HDL Ratio 4.93 mg/dL (1.0-5.00); Cholesterol 202 mg/dL (0-200); Globulin 2.1 g/dL (1.3-4.6); Glomerular Filtration Rate 97.3 mL/min (90-130); Glucose 198 mg/dL (65-115); HDL Cholesterol 41 mg/dL (60-100); LDL Cholesterol Calculated 125 mg/dL (50-129); LDL HDL Ratio 3.05 RATIO (0.00-3.22); Osmolality Calculated 289 mOsm/kg (285-295); Sodium 136 mmol/L (136-145); Total Bilirubin 0.5 mg/dL (0.15-1.2); Total Protein 6.3 g/dL (6.6-8.7); Triglycerides 181 mg/dL (0-150)
[2020-11-29 16:31] LABS: Estmated Average Glucose 163; Hemoglobin A1C 7.3 % (4.0-6.0)
== END 2020-12-17 23:59 | disposition home or self-care (01) ==
LOC: ONCMED 06:28
PROVIDERS: PCP Nurse Practitioner; Visit Provider Internal Medicine Medical Oncology
DX: C91.10 Chronic lymphocytic leukemia of B-cell type not having achieved remission (principal); D72.820 Lymphocytosis (symptomatic); E11.9 Type 2 diabetes mellitus without complications; Z79.899 Other long term (current) drug therapy
CPT/HCPCS: 36415; 80053; 80061; 83036; 85025

== ENCOUNTER → 2020-11-30 08:04 | Outpatient (BNVA) | payer BC, SELFPAY | PROVIDERS: PCP Nurse Practitioner; Visit Provider Nurse Practitioner | DX: E03.8 Other specified hypothyroidism (principal); E11.65 Type 2 diabetes mellitus with hyperglycemia | CPT/HCPCS: 81000; 84443 ==

== ENCOUNTER 2020-12-27 06:19 | Outpatient (RCR) | payer BC, SELFPAY ==
[2020-12-27 13:20] LABS: Basophils % 0.2 %; Eosinophils % 0.5 %; Hematocrit 46.6 % (42.0-52.0); Hemoglobin 15.7 g/dL (11.7-16.6); Lymphocytes # 2.7 10^3/uL (0.8-4.8); Lymphocytes % 40.1 %; Mean Corpuscular HGB Conc 33.7 g/dL (30.0-36.0); Mean Corpuscular Hemoglobin 29.7 pg (28.0-34.0); Mean Corpuscular Volume 88.3 fL (80-94); Mean Platelet Volume 9.5 fL (7.4-10.4); Monocytes # 0.5 10^3/uL (0.2-0.9); Monocytes % 7.3 %; Neutrophils % 51.3 %; Nucleated Red Blood Cells % 0 %; Platelet Count 216 10^3/cmm (130-400); Red Blood Count 5.28 10^6/uL (4.1-5.3); Red Cell Distribution Width 14.4 % (12.1-15.1); White Blood Count 6.6 10^3/uL (4.0-10.0)
[2020-12-27 13:40] LABS: Alanine Aminotransferase 24 U/L (0-41); Albumin Level 4.1 g/dL (3.5-5.2); Alkaline Phosphatase 75 IU/L (40-130); Anion Gap 13.4 (5-19); Aspartate Amino Transferase 17 U/L (0-40); Blood Urea Nitrogen 13 mg/dL (8-23); Calcium 8.8 mg/dL (8.5-10.5); Carbon Dioxide 26 mmol/L (22-29); Chloride 104 mmol/L (98-107); Glomerular Filtration Rate 113.5 mL/min (90-130); Glucose 179 mg/dL (65-115); Lactate Dehydrogenase 171 U/L (135-225); Osmolality Calculated 293 mOsm/kg (285-295); Potassium 4.4 mmol/L (3.5-5.1); Sodium 139 mmol/L (136-145); Total Bilirubin 0.4 mg/dL (0.15-1.2); Total Protein 6.1 g/dL (6.6-8.7)
--- NOTE | 2020-12-29 15:18 | ONC FU_ITS ---
Dr. Lopez Patient Follow-Up Note Patient: Paulo Musa Unit #: [id number]: 1955 Dicatated By: Ashish Lopez M.D.Date of Visit:Dec 27, 2020 Onc Med Follow-up/Prog Note Chief Complaint: Chronic lymphocytic leukemia. History of Present Illness: This is a 65 year-old man with chronic lymphocytic leukemia, Williamson stage II at initial diagnosis in October 2018. He had a scheduled follow-up visit with Siobhan Albert on 09/20/2018. At that time he was complaining of fatigue, and he also reported having pain in the back of his head. His laboratory studies prior to the visit, from 09/17/2018, included CBC showed a significantly elevated white blood cell count at 55,600. The differential included 82% lymphocytes, 14% neutrophils, and 2% monocytes. The hemoglobin was normal at 15.1 g with hematocrit 45.4%. The platelet count was 198,000. The comprehensive metabolic profile showed normal renal function with BUN 8 and creatinine 0.9 mg/dL. Liver enzymes were normal. B12 level was normal. TSH was slightly elevated 5.00 mIU/mL. His screening PSA was also mildly elevated at 7.90 ng/mL. Further evaluation with CT scans of the chest, abdomen, and pelvis on 09/27/2018 showed mild bilateral axillary lymphadenopathy, measuring up to 11 mm on the left and up to 17 mm on the right. There was no hilar or mediastinal adenopathy or mass noted. The spleen was noted to be enlarged at 15.7 cm. There was mild periaortic, inguinal, and iliac chain lymphadenopathy, the largest measuring the range of 13-14 mm. Contrast-enhanced head CT on 09/30/2018 showed a large area of decreased attenuation in the anterior left middle cranial fossa consistent with an arachnoid cyst. It measured 4.6 x 5.8 cm. There was slight mass effect on the left temporal lobe. There was no evidence of enhancing mass or other acute findings. I had seen him initially on 10/20/2018. Further evaluation with bone marrow aspiration/biopsy on 10/28/2018 showed hypercellular marrow with extensive lymphoproliferative process comprising over 80% of the marrow cellularity. Flow cytometry showed a monotypic B-cell population which were positive for CD19, CD20, CD5, CD23, and CD200. They were negative for CD10 and CD123. The findings were felt to be consistent with atypical chronic lymphocytic leukemia. The FISH panel for CLL was unrevealing. 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 Overall, the clinical findings were consistent with Williamson stage II disease. As he was not overtly symptomatic, observation/expectant management was recommended. Repeat CT scans of the chest, abdomen, and pelvis on 04/04/2019 showed moderate progression of lymphadenopathy within the abdomen and pelvis compared to study from September 2018. The size and number of axillary lymph nodes also was noted to have increased. There did not appear to be any bulky lymphadenopathy, though. There was moderate splenomegaly, but unchanged. As of his follow-up visit in March 2019 the white blood cell count had increased to 74,000, with normal hemoglobin/hematocrit levels and normal platelet count. In the absence of any definite indication for treatment, he continued on observation/expectant management. At his follow-up visit in February 2020 there was further increase in the white blood cell count to 145,000. His hemoglobin was down slightly at 12.8 g with platelet count normal at 195,000. He continued to have significant fatigue, but he otherwise appeared stable clinically. At that point I did talk to him about the possibility of starting treatment, but he preferred to continue observation. As of his follow-up visit on 05/28/2020 his white count had increased to 164,000 with hemoglobin stable at 12.6 g and with platelet count normal at 193,000. With increasing lymphadenopathy and increasing fatigue, he was agreeable to initiating treatment with the obinutuzumab/venetoclax regimen. His other medical illnesses include hypertension, hyperlipidemia, and type II diabetes. He is a nonsmoker. INTERIM HISTORY: He began his initial 100 mg dosage of obinutuzumab on 07/26/2020. His baseline white blood cell count was 221,000. He had only very mild, transient infusion reaction and he continue with the day to 900 mg dosage, again with just transient symptoms of infusion reaction. At day 7 his repeat CBC showed a dramatic decline in the white blood cell count of 4200 with absolute neutrophil count 2300. His further treatment was then put on hold. At his follow-up visit on 08/22/2020 his white count was back up to 12,000 with absolute neutrophil count 3000. Hemoglobin is up to 13.6 g and platelet count was normal at 211,000. He continued venetoclax with the dosage limited to 100 mg daily. He continued with cycle 2 of obinutuzumab on 09/07/2020. It was complicated by a significant infusion reaction, which included throat swelling and difficulty breathing. It resolved with steroid therapy. Given the severity of the reaction, I opted not to attempt any further treatment with obinutuzumab. He continued venetoclax at 100 mg daily. He is seen now for a follow-up visit. He has been feeling good generally. His main complaint is that his joints have been aching more, mainly in the morning. He has been able to manage it adequately taking ibuprofen at night. His most significant pain is in his shoulders and back. His energy is been okay and he has pretty much normal activity. His appetite is now good, but he is eating. He does not have fever or night sweats. He has had no mouth sores. He has no shortness of breath, cough, or chest pain. He has no GI/ complaints other than his bowels are sometimes a little soft. He does not complain of headache or dizziness. He has numbness in his left index and middle fingers. Medications: Acyclovir 1 Tablet (of 400 mg) Oral daily, Allopurinol 1 Tablet (of 300 mg) Oral daily, Bactrim DS Tablet Oral, Jardiance 1 Tablet (of 25 mg) Oral daily, Levothyroxine Sodium 1 Tablet (of 75 mcg) Oral daily, Lisinopril 1 Tablet (of 2.5 mg) Oral daily, LORazepam 1 Tablet (of 1 mg) Oral daily PRN, Ozempic 1 Subcutaneous q 7 days, Prochlorperazine Maleate 1 Tablet (of 10 mg) Oral daily PRN, Tamsulosin HCl 1 Capsule (of 0.4 mg) Oral daily Allergies: No Known Allergies. Vital Signs: Performed on Dec 27, 2020 14:22 Height - 72.00 in Weight - 293.2 lbs (HIGH) BSA - 2.51 sq.m BMI - 39.77 (HIGH) Temperature - 97.8 F (LOW) Pulse - 72 /min Respiration - 18 /min BP - 143/75 mm(hg) (HIGH) O2 Sat - 97 % Pain - 0 Fatigue - 0 Physical Examination: Constitutional - He looks good generally, Eyes - Sclerae nonicteric. Conjunctivae clear, ENMT - No lesions noted in the oral cavity, Hematologic/Lymphatic - No cervical, clavicular, or axillary adenopathy noted, Respiratory - Lungs are clear with good air movement bilaterally, Cardiovascular - Heart rhythm is regular. There is a II/ systolic murmur. There is no gallop, or rub noted, Abdomen - Moderately distended. Liver and spleen are not enlarged. There is no abdominal mass or ascites noted. There is no inguinal adenopathy noted, Extremities - No edema, Integumentary - No skin eruption noted, Neurologic - No focal neurologic deficits noted. Lab/Imaging: Test performed on Dec 27, 2020 13:00 LDH (Total) 171 U/L Sodium 139 mmol/L Potassium 4.4 mmol/L Chloride 104 mmol/L CO2 26 mmol/L Anion Gap 13.4 BUN 13 mg/dL Creatinine 0.7 mg/dL Cr Clearance (Est) 200.55 mL/min eGFR 113.5 mL/min Glucose 179 mg/dL Osmolality - Calculated 293 mOsm/kg Calcium 8.8 mg/dL Protein, Total 6.1 g/dL Albumin 4.1 g/dL Globulin 2.0 g/dL Bilirubin, Total 0.4 mg/dL ALT (SGPT) 24 U/L AST (SGOT) 17 U/L Alkaline Phosphatase 75 IU/L WBC 6.6 10 3/uL RBC 5.28 10 6/uL HGB 15.7 g/dL HCT 46.6 % MCV 88.3 fL MCH 29.7 pg MCHC 33.7 g/dL RDW 14.4 % Platelet Count 216 10 3/cmm MPV 9.5 fL Neutrophils 3.40 10 3/uL Lymphocytes 2.7 10 3/uL Monocytes 0.5 10 3/uL Eosinophils 0.0 10 3/uL Basophils 0.0 10 3/uL Neutrophil % 51.3 % Lymphocyte % 40.1 % Monocyte % 7.3 % Eosinophil % 0.5 % Basophils % 0.2 % NRBC % 0 % Problem List: 1. Chronic lymphocytic leukemia. Based on the CT findings, his disease was Williamson stage II at initial diagnosis in October 2018. He did not appear to be symptomatic. 2. He had CT evidence of a left middle cranial fossa arachnoid cyst measuring 4.6 x 5.8 cm. 3. Hypertension. 4. Hyperlipidemia. 5. Type II diabetes. 6. He has history of right foot drop following back surgery in 2003. 7. He has had mildly elevated PSA level and mild voiding symptoms. Needle biopsies of the prostate on 03/04/2019 showed benign pathology. Problems Addressed with this Encounter and Plan: Patient with chronic lymphocytic leukemia. Based on the CT findings, his disease was Williamson stage II at initial diagnosis in October 2018. He did not appear to be symptomatic. He was initially followed on observation/expectant management. As of his follow-up visit in May 2020 there had been a significant increase in his lymphocyte count. He also had become significantly more fatigued and he had become borderline anemic. As such, he was recommended to begin treatment with obinutuzumab/venetoclax. He began treatment on 07/26/2020. His baseline white blood cell count was 221,000. He completed his initial day 1/day 2 obinutuzumab with just transient symptoms of infusion reaction. At day 7 his white blood cell count had declined dramatically to 4200 with ANC 2300. His further treatment was put on hold. As of white blood cell count had come up to 12,000 with ANC 3000 and continued his dose escalation of venetoclax up to 100 mg daily. He continued with cycle 2 of obinutuzumab on 09/07/2020. It was complicated by a more severe infusion reaction, which included throat swelling and difficulty breathing. It resolved on steroid therapy. Due to the severity of the reaction, I opted not to attempt any further treatment with obinutuzumab. He continued the venetoclax at 100 mg daily. During follow-up his blood counts have remained in normal range. He has having some increased joint pain which may be treatment related. He otherwise appears to be tolerating it very well. He will continue venetoclax at 100 mg daily. I will see him again in 3 months. Signed By: Ashish Lopez M.D. <<Signature on File>>
== END 2021-01-16 23:59 | disposition home or self-care (01) ==
LOC: ONCMED 06:19
PROVIDERS: PCP Nurse Practitioner; Visit Provider Internal Medicine Medical Oncology
DX: C91.10 Chronic lymphocytic leukemia of B-cell type not having achieved remission (principal); G93.0 Cerebral cysts; I10 Essential (primary) hypertension; E78.5 Hyperlipidemia, unspecified; E11.9 Type 2 diabetes mellitus without complications; M21.371 Foot drop, right foot; R97.20 Elevated prostate specific antigen [PSA]; Z79.899 Other long term (current) drug therapy; Z92.21 Personal history of antineoplastic chemotherapy
CPT/HCPCS: 36415; 80053; 83615; 85025; 99214

== ENCOUNTER → 2021-01-28 08:57 | Outpatient (BNVA) | payer OTHER, SELFPAY | PROVIDERS: PCP Nurse Practitioner; Visit Provider Urology | DX: N40.1 Benign prostatic hyperplasia with lower urinary tract symptoms (principal); R97.20 Elevated prostate specific antigen [PSA] | CPT/HCPCS: 81003 ==

== ENCOUNTER 2021-04-11 13:14 | Outpatient (CLI) | payer OTHER, SELFPAY ==
[2021-04-11 14:26] LABS: Basophils % 0.2 %; Eosinophils % 0.6 %; Hematocrit 46.2 % (42.0-52.0); Hemoglobin 15.6 g/dL (11.7-16.6); Lymphocytes # 2.4 10^3/uL (0.8-4.8); Lymphocytes % 38.8 %; Mean Corpuscular HGB Conc 33.8 g/dL (30.0-36.0); Mean Corpuscular Hemoglobin 31.4 pg (28.0-34.0); Mean Platelet Volume 10.1 fL (7.4-10.4); Monocytes # 0.6 10^3/uL (0.2-0.9); Monocytes % 8.9 %; Neutrophils # 3.17 10^3/uL (1.8-7.7); Neutrophils % 51.2 %; Nucleated Red Blood Cells % 0 %; Platelet Count 176 10^3/cmm (130-400); Red Blood Count 4.97 10^6/uL (4.1-5.3); Red Cell Distribution Width 13.2 % (12.1-15.1); White Blood Count 6.2 10^3/uL (4.0-10.0)
[2021-04-11 14:49] LABS: Estmated Average Glucose 169; Hemoglobin A1C 7.5 % (4.0-6.0)
[2021-04-11 15:09] LABS: Alanine Aminotransferase 25 U/L (0-41); Albumin Level 4.2 g/dL (3.5-5.2); Alkaline Phosphatase 84 IU/L (40-130); Anion Gap 16.2 (5-19); Aspartate Amino Transferase 21 U/L (0-40); Blood Urea Nitrogen 11 mg/dL (8-23); Calcium 8.9 mg/dL (8.5-10.5); Carbon Dioxide 24 mmol/L (22-29); Chloride 103 mmol/L (98-107); Globulin 2.2 g/dL (1.3-4.6); Glomerular Filtration Rate 97.3 mL/min (90-130); Glucose 155 mg/dL (65-115); Lactate Dehydrogenase 169 U/L (135-225); Osmolality Calculated 291 mOsm/kg (285-295); Potassium 4.2 mmol/L (3.5-5.1); Sodium 139 mmol/L (136-145); Total Bilirubin 0.4 mg/dL (0.15-1.2); Total Protein 6.4 g/dL (6.6-8.7)
== END 2021-04-11 13:15 | disposition home or self-care (01) ==
LOC: ONCMED 13:16
PROVIDERS: PCP Nurse Practitioner; Visit Provider Internal Medicine Medical Oncology
DX: C91.10 Chronic lymphocytic leukemia of B-cell type not having achieved remission (principal)
CPT/HCPCS: 36415; 80053; 83036; 83615; 84443; 85025

== ENCOUNTER 2021-04-16 06:52 | Outpatient (CLI) | payer OTHER, SELFPAY ==
--- NOTE | 2021-04-16 17:10 | ONC FU_ITS ---
Dr. Lopez Patient Follow-Up Note Patient: Paulo Musa Unit #: [id number]: 1955 Dicatated By: Ashish Lopez M.D.Date of Visit:Apr 16, 2021 Onc Med Follow-up/Prog Note Chief Complaint: Chronic lymphocytic leukemia. History of Present Illness: This is a 65 year-old man with chronic lymphocytic leukemia, Williamson stage II at initial diagnosis in October 2018. He had a scheduled follow-up visit with Siobhan Albert on 09/20/2018. At that time he was complaining of fatigue, and he also reported having pain in the back of his head. His laboratory studies prior to the visit, from 09/17/2018, included CBC showed a significantly elevated white blood cell count at 55,600. The differential included 82% lymphocytes, 14% neutrophils, and 2% monocytes. The hemoglobin was normal at 15.1 g with hematocrit 45.4%. The platelet count was 198,000. The comprehensive metabolic profile showed normal renal function with BUN 8 and creatinine 0.9 mg/dL. Liver enzymes were normal. B12 level was normal. TSH was slightly elevated 5.00 mIU/mL. His screening PSA was also mildly elevated at 7.90 ng/mL. Further evaluation with CT scans of the chest, abdomen, and pelvis on 09/27/2018 showed mild bilateral axillary lymphadenopathy, measuring up to 11 mm on the left and up to 17 mm on the right. There was no hilar or mediastinal adenopathy or mass noted. The spleen was noted to be enlarged at 15.7 cm. There was mild periaortic, inguinal, and iliac chain lymphadenopathy, the largest measuring the range of 13-14 mm. Contrast-enhanced head CT on 09/30/2018 showed a large area of decreased attenuation in the anterior left middle cranial fossa consistent with an arachnoid cyst. It measured 4.6 x 5.8 cm. There was slight mass effect on the left temporal lobe. There was no evidence of enhancing mass or other acute findings. I had seen him initially on 10/20/2018. Further evaluation with bone marrow aspiration/biopsy on 10/28/2018 showed hypercellular marrow with extensive lymphoproliferative process comprising over 80% of the marrow cellularity. Flow cytometry showed a monotypic B-cell population which were positive for CD19, CD20, CD5, CD23, and CD200. They were negative for CD10 and CD123. The findings were felt to be consistent with atypical chronic lymphocytic leukemia. The FISH panel for CLL was unrevealing. 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 Overall, the clinical findings were consistent with Williamson stage II disease. As he was not overtly symptomatic, observation/expectant management was recommended. Repeat CT scans of the chest, abdomen, and pelvis on 04/04/2019 showed moderate progression of lymphadenopathy within the abdomen and pelvis compared to study from September 2018. The size and number of axillary lymph nodes also was noted to have increased. There did not appear to be any bulky lymphadenopathy, though. There was moderate splenomegaly, but unchanged. As of his follow-up visit in March 2019 the white blood cell count had increased to 74,000, with normal hemoglobin/hematocrit levels and normal platelet count. In the absence of any definite indication for treatment, he continued on observation/expectant management. At his follow-up visit in February 2020 there was further increase in the white blood cell count to 145,000. His hemoglobin was down slightly at 12.8 g with platelet count normal at 195,000. He continued to have significant fatigue, but he otherwise appeared stable clinically. At that point I did talk to him about the possibility of starting treatment, but he preferred to continue observation. As of his follow-up visit on 05/28/2020 his white count had increased to 164,000 with hemoglobin stable at 12.6 g and with platelet count normal at 193,000. With increasing lymphadenopathy and increasing fatigue, he was agreeable to initiating treatment with the obinutuzumab/venetoclax regimen. His other medical illnesses include hypertension, hyperlipidemia, and type II diabetes. He is a nonsmoker. INTERIM HISTORY: He began his initial 100 mg dosage of obinutuzumab on 07/26/2020. His baseline white blood cell count was 221,000. He had only very mild, transient infusion reaction and he continue with the day to 900 mg dosage, again with just transient symptoms of infusion reaction. At day 7 his repeat CBC showed a dramatic decline in the white blood cell count of 4200 with absolute neutrophil count 2300. His further treatment was then put on hold. At his follow-up visit on 08/22/2020 his white count was back up to 12,000 with absolute neutrophil count 3000. Hemoglobin is up to 13.6 g and platelet count was normal at 211,000. He continued venetoclax with the dosage limited to 100 mg daily. He continued with cycle 2 of obinutuzumab on 09/07/2020. It was complicated by a significant infusion reaction, which included throat swelling and difficulty breathing. It resolved with steroid therapy. Given the severity of the reaction, I opted not to attempt any further treatment with obinutuzumab. He continued venetoclax at 100 mg daily. He is seen for a follow-up visit. He has been feeling good generally. He has pretty good energy, and he has normal activity. ECOG score 0. His appetite is good. He has gained weight. He does not have fever or night sweats. Recently has had a cold with sinus congestion and cough, but it is getting better. He does not complain of shortness of breath or chest pain. He has no GI or complaints. He has some joint pain, mainly in the shoulders, and he complains that his hands go numb if he is lying in the wrong position. He does not complain of headache or dizziness. He also has numbness in the median nerve distribution in both hands. Medications: Acyclovir 1 Tablet (of 400 mg) Oral daily, Allopurinol 1 Tablet (of 300 mg) Oral daily, Bactrim DS Tablet Oral, Jardiance 1 Tablet (of 25 mg) Oral daily, Levothyroxine Sodium 1 Tablet (of 75 mcg) Oral daily, Lisinopril 1 Tablet (of 2.5 mg) Oral daily, LORazepam 1 Tablet (of 1 mg) Oral daily PRN, Ozempic 1 Subcutaneous q 7 days, Prochlorperazine Maleate 1 Tablet (of 10 mg) Oral daily PRN, Tamsulosin HCl 1 Capsule (of 0.4 mg) Oral daily Allergies: No Known Allergies. Vital Signs: Performed on Apr 16, 2021 16:50 Height - 72.00 in Weight - 297.6 lbs (HIGH) BSA - 2.52 sq.m BMI - 40.36 (HIGH) Temperature - 97.5 F (LOW) Pulse - 72 /min Respiration - 18 /min BP - 139/78 mm(hg) O2 Sat - 97 % Pain - 0 Fatigue - 0 Physical Examination: Constitutional - He looks good generally, Eyes - Sclerae nonicteric. Conjunctivae clear, ENMT - No lesions noted in the oral cavity, Hematologic/Lymphatic - No cervical, clavicular, or axillary adenopathy noted, Respiratory - Lungs are clear with good air movement bilaterally, Cardiovascular - Heart rhythm is regular. There is a II/ systolic murmur. There is no gallop, or rub noted, Abdomen - Moderately distended. Liver and spleen are not enlarged. There is no abdominal mass or ascites noted. There is no inguinal adenopathy noted, Extremities - No edema, Neurologic - No focal neurologic deficits noted. Lab/Imaging: Test performed on Apr 11, 2021 13:25 Glucose 155 mg/dL Protein, Total 6.4 g/dL WBC 6.2 10 3/uL RBC 4.97 10 6/uL HGB 15.6 g/dL HCT 46.2 % MCV 93.0 fl MCH 31.4 pg MCHC 33.8 g/dL RDW 13.2 % Platelet Count 176 10 3/cmm MPV 10.1 fL Neutrophils 3.17 10 3/uL Lymphocytes 2.4 10 3/uL Monocytes 0.6 10 3/uL Eosinophils 0.0 10 3/uL Basophils 0.0 10 3/uL Neutrophil % 51.2 % Lymphocyte % 38.8 % Monocyte % 8.9 % Eosinophil % 0.6 % Basophils % 0.2 % NRBC % 0 % Problem List: 1. Chronic lymphocytic leukemia. Based on the CT findings, his disease was Williamson stage II at initial diagnosis in October 2018. He did not appear to be symptomatic. 2. He had CT evidence of a left middle cranial fossa arachnoid cyst measuring 4.6 x 5.8 cm. 3. Hypertension. 4. Hyperlipidemia. 5. Type II diabetes. 6. He has history of right foot drop following back surgery in 2003. 7. He has had mildly elevated PSA level and mild voiding symptoms. Needle biopsies of the prostate on 03/04/2019 showed benign pathology. Problems Addressed with this Encounter and Plan: Patient with chronic lymphocytic leukemia. Based on the CT findings, his disease was Williamson stage II at initial diagnosis in October 2018. He did not appear to be symptomatic. He was initially followed on observation/expectant management. As of his follow-up visit in May 2020 there had been a significant increase in his lymphocyte count. He also had become significantly more fatigued and he had become borderline anemic. As such, he was recommended to begin treatment with obinutuzumab/venetoclax. He began treatment on 07/26/2020. His baseline white blood cell count was 221,000. He completed his initial day 1/day 2 obinutuzumab with just transient symptoms of infusion reaction. At day 7 his white blood cell count had declined dramatically to 4200 with ANC 2300. His further treatment was put on hold. As of white blood cell count had come up to 12,000 with ANC 3000 and continued his dose escalation of venetoclax up to 100 mg daily. He continued with cycle 2 of obinutuzumab on 09/07/2020. It was complicated by a more severe infusion reaction, which included throat swelling and difficulty breathing. It resolved on steroid therapy. Due to the severity of the reaction, I opted not to attempt any further treatment with obinutuzumab. He then continued the venetoclax at 100 mg daily, and during follow-up his blood counts have remained in normal range. Overall, he is been doing very well clinically. He has had a very good response to the treatment, and at this point it appears to be tolerating it with no adverse effects. He continues venetoclax at 100 mg daily. He will be given a flu shot today. He is advised now that he also can proceed with his COVID-19 vaccination. I will see him again in 3 months. Signed By: Ashish Lopez M.D. <<Signature on File>>
== END 2021-04-16 06:53 | disposition home or self-care (01) ==
PROVIDERS: PCP Nurse Practitioner; Visit Provider Internal Medicine Medical Oncology
DX: C91.10 Chronic lymphocytic leukemia of B-cell type not having achieved remission (principal); I10 Essential (primary) hypertension; E78.5 Hyperlipidemia, unspecified; E11.9 Type 2 diabetes mellitus without complications; Z79.899 Other long term (current) drug therapy; Z79.890 Hormone replacement therapy
CPT/HCPCS: 81000; 90471; 90686; 99214

== ENCOUNTER → 2021-04-26 09:58 | Outpatient (BNVA) | payer OTHER, SELFPAY | PROVIDERS: PCP Nurse Practitioner; Visit Provider Nurse Practitioner Family | DX: R50.9 Fever, unspecified (principal); J01.40 Acute pansinusitis, unspecified; H60.92 Unspecified otitis externa, left ear; Z11.52 Encounter for screening for COVID-19; H60.502 Unspecified acute noninfective otitis externa, left ear | CPT/HCPCS: 87635 ==

== ENCOUNTER 2021-07-16 11:28 | Outpatient (CLI) | payer OTHER, SELFPAY ==
[2021-07-16 12:17] LABS: Basophils % 0.4 %; Eosinophils % 0.2 %; Hematocrit 42.5 % (42.0-52.0); Hemoglobin 14.2 g/dL (11.7-16.6); Lymphocytes # 1.5 10^3/uL (0.8-4.8); Lymphocytes % 27.5 %; Mean Corpuscular HGB Conc 33.4 g/dL (30.0-36.0); Mean Corpuscular Hemoglobin 30.6 pg (28.0-34.0); Mean Corpuscular Volume 91.6 fl (80-94); Mean Platelet Volume 9.8 fL (7.4-10.4); Monocytes # 0.5 10^3/uL (0.2-0.9); Monocytes % 10.1 %; Neutrophils # 3.24 10^3/uL (1.8-7.7); Neutrophils % 61.4 %; Nucleated Red Blood Cells % 0 %; Platelet Count 142 10^3/cmm (130-400); Red Blood Count 4.64 10^6/uL (4.1-5.3); White Blood Count 5.3 10^3/uL (4.0-10.0)
[2021-07-16 12:46] LABS: Alanine Aminotransferase 44 U/L (0-41); Albumin Level 3.9 g/dL (3.5-5.2); Alkaline Phosphatase 114 IU/L (40-130); Anion Gap 15.5 (5-19); Aspartate Amino Transferase 24 U/L (0-40); Blood Urea Nitrogen 13 mg/dL (8-23); Calcium 8.8 mg/dL (8.5-10.5); Carbon Dioxide 26 mmol/L (22-29); Chloride 100 mmol/L (98-107); Globulin 2.4 g/dL (1.3-4.6); Glomerular Filtration Rate 97.3 mL/min (90-130); Glucose 368 mg/dL (65-115); Lactate Dehydrogenase 175 U/L (135-225); Osmolality Calculated 299 mOsm/kg (285-295); Potassium 4.5 mmol/L (3.5-5.1); Sodium 137 mmol/L (136-145); Thyroid Stimulating Hormone 2.84 uIU/mL (0.27-4.20); Total Bilirubin 0.3 mg/dL (0.15-1.2); Total Protein 6.3 g/dL (6.6-8.7)
[2021-07-16 12:53] LABS: Estmated Average Glucose 235; Hemoglobin A1C 9.8 % (4.0-6.0)
== END 2021-07-16 11:29 | disposition home or self-care (01) ==
LOC: ONCMED 11:33
PROVIDERS: PCP Nurse Practitioner; Visit Provider Internal Medicine Medical Oncology
DX: C91.10 Chronic lymphocytic leukemia of B-cell type not having achieved remission (principal); E11.9 Type 2 diabetes mellitus without complications; E78.5 Hyperlipidemia, unspecified; Z79.899 Other long term (current) drug therapy
CPT/HCPCS: 36415; 80053; 83036; 83615; 84443; 85025

== ENCOUNTER → 2021-07-23 08:59 | Outpatient (BNVA) | payer OTHER, SELFPAY | PROVIDERS: PCP Nurse Practitioner; Visit Provider Nurse Practitioner | DX: E11.65 Type 2 diabetes mellitus with hyperglycemia (principal) | CPT/HCPCS: 81000 ==

== ENCOUNTER 2021-07-24 12:39 | Outpatient (CLI) | payer OTHER, SELFPAY ==
--- NOTE | 2021-07-25 07:03 | ONC FU_ITS ---
Dr. Lopez Patient Follow-Up Note Patient: Paulo Musa Unit #: [id number]: 1955 Dicatated By: Ashish Lopez M.D.Date of Visit:Jul 24, 2021 Onc Med Follow-up/Prog Note Chief Complaint: Chronic lymphocytic leukemia. History of Present Illness: This is a 65 year-old man with chronic lymphocytic leukemia, Williamson stage II at initial diagnosis in October 2018. He had a scheduled follow-up visit with Siobhan Albert on 09/20/2018. At that time he was complaining of fatigue, and he also reported having pain in the back of his head. His laboratory studies prior to the visit, from 09/17/2018, included CBC showed a significantly elevated white blood cell count at 55,600. The differential included 82% lymphocytes, 14% neutrophils, and 2% monocytes. The hemoglobin was normal at 15.1 g with hematocrit 45.4%. The platelet count was 198,000. The comprehensive metabolic profile showed normal renal function with BUN 8 and creatinine 0.9 mg/dL. Liver enzymes were normal. B12 level was normal. TSH was slightly elevated 5.00 mIU/mL. His screening PSA was also mildly elevated at 7.90 ng/mL. Further evaluation with CT scans of the chest, abdomen, and pelvis on 09/27/2018 showed mild bilateral axillary lymphadenopathy, measuring up to 11 mm on the left and up to 17 mm on the right. There was no hilar or mediastinal adenopathy or mass noted. The spleen was noted to be enlarged at 15.7 cm. There was mild periaortic, inguinal, and iliac chain lymphadenopathy, the largest measuring the range of 13-14 mm. Contrast-enhanced head CT on 09/30/2018 showed a large area of decreased attenuation in the anterior left middle cranial fossa consistent with an arachnoid cyst. It measured 4.6 x 5.8 cm. There was slight mass effect on the left temporal lobe. There was no evidence of enhancing mass or other acute findings. I had seen him initially on 10/20/2018. Further evaluation with bone marrow aspiration/biopsy on 10/28/2018 showed hypercellular marrow with extensive lymphoproliferative process comprising over 80% of the marrow cellularity. Flow cytometry showed a monotypic B-cell population which were positive for CD19, CD20, CD5, CD23, and CD200. They were negative for CD10 and CD123. The findings were felt to be consistent with atypical chronic lymphocytic leukemia. The FISH panel for CLL was unrevealing. 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 Overall, the clinical findings were consistent with Williamson stage II disease. As he was not overtly symptomatic, observation/expectant management was recommended. Repeat CT scans of the chest, abdomen, and pelvis on 04/04/2019 showed moderate progression of lymphadenopathy within the abdomen and pelvis compared to study from September 2018. The size and number of axillary lymph nodes also was noted to have increased. There did not appear to be any bulky lymphadenopathy, though. There was moderate splenomegaly, but unchanged. As of his follow-up visit in March 2019 the white blood cell count had increased to 74,000, with normal hemoglobin/hematocrit levels and normal platelet count. In the absence of any definite indication for treatment, he continued on observation/expectant management. At his follow-up visit in February 2020 there was further increase in the white blood cell count to 145,000. His hemoglobin was down slightly at 12.8 g with platelet count normal at 195,000. He continued to have significant fatigue, but he otherwise appeared stable clinically. At that point I did talk to him about the possibility of starting treatment, but he preferred to continue observation. As of his follow-up visit on 05/28/2020 his white count had increased to 164,000 with hemoglobin stable at 12.6 g and with platelet count normal at 193,000. With increasing lymphadenopathy and increasing fatigue, he was agreeable to initiating treatment with the obinutuzumab/venetoclax regimen. His other medical illnesses include hypertension, hyperlipidemia, and type II diabetes. He is a nonsmoker. INTERIM HISTORY: He began his initial 100 mg dosage of obinutuzumab on 07/26/2020. His baseline white blood cell count was 221,000. He had only very mild, transient infusion reaction and he continue with the day to 900 mg dosage, again with just transient symptoms of infusion reaction. At day 7 his repeat CBC showed a dramatic decline in the white blood cell count of 4200 with absolute neutrophil count 2300. His further treatment was then put on hold. At his follow-up visit on 08/22/2020 his white count was back up to 12,000 with absolute neutrophil count 3000. Hemoglobin is up to 13.6 g and platelet count was normal at 211,000. He continued venetoclax with the dosage limited to 100 mg daily. He continued with cycle 2 of obinutuzumab on 09/07/2020. It was complicated by a significant infusion reaction, which included throat swelling and difficulty breathing. It resolved with steroid therapy. Given the severity of the reaction, I opted not to attempt any further treatment with obinutuzumab. He continued venetoclax at 100 mg daily. He is seen for a follow-up visit. He has been feeling pretty good generally. Last month he had flulike symptoms which lasted for about 2 weeks, mainly cough and shortness of breath. He is still feeling a little tired, but he is still working and he has normal activity. ECOG score 0. He has good appetite. He has not had fever or night sweats. He has not had sore mouth or throat. His cough has resolved now and his breathing is better. He has not been having chest pain. He has no GI/ complaints other than the frequent urination. He had been having pain in his shoulders, but that also has improved. He does not complain of headache or dizziness. He still has some numbness in the median nerve distribution bilaterally. Medications: Acyclovir 1 Tablet (of 400 mg) Oral daily, Allopurinol 1 Tablet (of 300 mg) Oral daily, Bactrim DS Tablet Oral, Jardiance 1 Tablet (of 25 mg) Oral daily, Levothyroxine Sodium 1 Tablet (of 75 mcg) Oral daily, Lisinopril 1 Tablet (of 2.5 mg) Oral daily, LORazepam 1 Tablet (of 1 mg) Oral daily PRN, Ozempic 1 Subcutaneous q 7 days, Prochlorperazine Maleate 1 Tablet (of 10 mg) Oral daily PRN, Tamsulosin HCl 1 Capsule (of 0.4 mg) Oral daily Allergies: No Known Allergies. Vital Signs: Performed on Jul 24, 2021 12:48 Height - 72.00 in Weight - 294.0 lbs (LOW) BSA - 2.51 sq.m BMI - 39.87 (HIGH) Temperature - 97.1 F (LOW) Pulse - 73 /min Respiration - 16 /min BP - 132/77 mm(hg) O2 Sat - 97 % Pain - 0 Fatigue - 2 Physical Examination: Constitutional - He looks good generally, Eyes - Sclerae nonicteric. Conjunctivae clear, ENMT - No lesions noted in the oral cavity, Hematologic/Lymphatic - No cervical, clavicular, or axillary adenopathy noted, Respiratory - Lungs are clear with good air movement bilaterally, Cardiovascular - Heart rhythm is regular. There is a II/ systolic murmur. There is no gallop, or rub noted, Abdomen - Moderately distended. Liver and spleen are not enlarged. There is no abdominal mass or ascites noted. There is no inguinal adenopathy noted, Extremities - No edema, Neurologic - No focal neurologic deficits noted. Lab/Imaging: Test performed on Jul 16, 2021 12:00 LDH (Total) 175 U/L Sodium 137 mmol/L TSH 2.84 uIU/mL Potassium 4.5 mmol/L Chloride 100 mmol/L Est Avg Glucose (eAG) 235 mg/dL CO2 26 mmol/L Anion Gap 15.5 BUN 13 mg/dL Creatinine 0.8 mg/dL Cr Clearance (Est) 178.1100 mL/min eGFR 97.3 mL/min Glucose 368 mg/dL Osmolality - Calculated 299 mOsm/kg Calcium 8.8 mg/dL Protein, Total 6.3 g/dL Albumin 3.9 g/dL Globulin 2.4 g/dL Bilirubin, Total 0.3 mg/dL ALT (SGPT) 44 U/L AST (SGOT) 24 U/L Alkaline Phosphatase 114 IU/L Hemoglobin A1C % 9.8 % WBC 5.3 10 3/uL RBC 4.64 10 6/uL HGB 14.2 g/dL HCT 42.5 % MCV 91.6 fl MCH 30.6 pg MCHC 33.4 g/dL RDW 14.0 % Platelet Count 142 10 3/cmm MPV 9.8 fL Neutrophils 3.24 10 3/uL Lymphocytes 1.5 10 3/uL Monocytes 0.5 10 3/uL Eosinophils 0.0 10 3/uL Basophils 0.0 10 3/uL Neutrophil % 61.4 % Lymphocyte % 27.5 % Monocyte % 10.1 % Eosinophil % 0.2 % Basophils % 0.4 % NRBC % 0 % Problem List: 1. Chronic lymphocytic leukemia. Based on the CT findings, his disease was Williamson stage II at initial diagnosis in October 2018. He did not appear to be symptomatic. 2. He had CT evidence of a left middle cranial fossa arachnoid cyst measuring 4.6 x 5.8 cm. 3. Hypertension. 4. Hyperlipidemia. 5. Type II diabetes. 6. He has history of right foot drop following back surgery in 2003. 7. He has had mildly elevated PSA level and mild voiding symptoms. Needle biopsies of the prostate on 03/04/2019 showed benign pathology. Problems Addressed with this Encounter and Plan: Patient with chronic lymphocytic leukemia. Based on the CT findings, his disease was Williamson stage II at initial diagnosis in October 2018. He did not appear to be symptomatic. He was initially followed on observation/expectant management. As of his follow-up visit in May 2020 there had been a significant increase in his lymphocyte count. He also had become significantly more fatigued and he had become borderline anemic. As such, he was recommended to begin treatment with obinutuzumab/venetoclax. He began treatment on 07/26/2020. His baseline white blood cell count was 221,000. He completed his initial day 1/day 2 obinutuzumab with just transient symptoms of infusion reaction. At day 7 his white blood cell count had declined dramatically to 4200 with ANC 2300. His further treatment was put on hold. As of white blood cell count had come up to 12,000 with ANC 3000 and continued his dose escalation of venetoclax up to 100 mg daily. He continued with cycle 2 of obinutuzumab on 09/07/2020. It was complicated by a more severe infusion reaction, which included throat swelling and difficulty breathing. It resolved on steroid therapy. Due to the severity of the reaction, I opted not to attempt any further treatment with obinutuzumab. He then continued the venetoclax at 100 mg daily, and during follow-up his blood counts have remained in normal range. Overall, he has been doing very well clinically. He has had a very good response to the treatment, and he has tolerated it well at the 100 mg dosage. He is now close to completing year of treatment. He will stop the venetoclax when he finishes his current prescription. I will see him again in 6 months. In the meantime, he will continue prophylaxis with acyclovir, but he can now stop the Bactrim and the allopurinol. Signed By: Ashish Lopez M.D. <<Signature on File>>
== END 2021-07-24 12:40 | disposition home or self-care (01) ==
PROVIDERS: PCP Nurse Practitioner; Visit Provider Internal Medicine Medical Oncology
DX: C91.10 Chronic lymphocytic leukemia of B-cell type not having achieved remission (principal); I10 Essential (primary) hypertension; E78.5 Hyperlipidemia, unspecified; E11.9 Type 2 diabetes mellitus without complications
CPT/HCPCS: 99214

== ENCOUNTER → 2021-08-05 16:14 | Outpatient (BNVA) | payer OTHER, SELFPAY | PROVIDERS: PCP Nurse Practitioner; Visit Provider Urology | DX: N40.1 Benign prostatic hyperplasia with lower urinary tract symptoms (principal); R97.20 Elevated prostate specific antigen [PSA] | CPT/HCPCS: 81003; 84153 ==

== ENCOUNTER → 2021-10-24 08:40 | Outpatient (BNVA) | payer OTHER, SELFPAY | PROVIDERS: PCP Nurse Practitioner; Visit Provider Nurse Practitioner | DX: E11.65 Type 2 diabetes mellitus with hyperglycemia (principal); E03.8 Other specified hypothyroidism | CPT/HCPCS: 80061; 81000; 81003; 83036; 84443 ==

== ENCOUNTER 2022-01-27 11:20 | Oncology outpatient (recurring) (ONCR) | payer OTHER, SELFPAY ==
[2022-01-27 12:10] LABS: Basophils % 0.4 %; Eosinophils # 0.2 10^3/uL (0.0-0.8); Eosinophils % 2.1 %; Hematocrit 46.8 % (42.0-52.0); Hemoglobin 15.9 g/dL (11.7-16.6); Lymphocytes % 38.1 %; Mean Corpuscular Hemoglobin 30.5 pg (28.0-34.0); Mean Corpuscular Volume 89.7 fl (80-94); Mean Platelet Volume 10.4 fL (7.4-10.4); Monocytes # 0.7 10^3/uL (0.2-0.9); Monocytes % 8.4 %; Neutrophils # 4.03 10^3/uL (1.8-7.7); Neutrophils % 50.6 %; Nucleated Red Blood Cells % 0 %; Platelet Count 147 10^3/cmm (130-400); Red Blood Count 5.22 10^6/uL (4.1-5.3); Red Cell Distribution Width 12.7 % (12.1-15.1)
[2022-01-27 12:30] LABS: Estmated Average Glucose 194; Hemoglobin A1C 8.4 % (4.0-6.0)
[2022-01-27 12:38] LABS: Alanine Aminotransferase 48 U/L (0-41); Albumin Level 4.4 g/dL (3.5-5.2); Alkaline Phosphatase 101 IU/L (40-130); Anion Gap 13.6 (5-19); Aspartate Amino Transferase 29 U/L (0-40); Blood Urea Nitrogen 13 mg/dL (8-23); Carbon Dioxide 28 mmol/L (22-29); Chloride 102 mmol/L (98-107); Chol HDL Ratio 6.13 mg/dL (1.0-5.00); Cholesterol 245 mg/dL (0-200); Globulin 2.3 g/dL (1.3-4.6); Glomerular Filtration Rate 84.7 mL/min (90-130); Glucose 168 mg/dL (65-115); HDL Cholesterol 40 mg/dL (60-100); LDL Cholesterol Calculated 156 mg/dL (50-129); Lactate Dehydrogenase 241 U/L (135-225); Osmolality Calculated 292 mOsm/kg (285-295); Potassium 4.6 mmol/L (3.5-5.1); Sodium 139 mmol/L (136-145); Thyroid Stimulating Hormone 2.99 uIU/mL (0.27-4.20); Total Bilirubin 0.5 mg/dL (0.15-1.2); Total Protein 6.7 g/dL (6.6-8.7); Triglycerides 247 mg/dL (0-150); VLDL Cholestrol Calculation 49 mg/dL (0-30)
== END 2022-02-16 23:59 | disposition home or self-care (01) ==
PROVIDERS: PCP Nurse Practitioner; Visit Provider Internal Medicine Medical Oncology
DX: C91.10 Chronic lymphocytic leukemia of B-cell type not having achieved remission (principal); E03.8 Other specified hypothyroidism; E11.65 Type 2 diabetes mellitus with hyperglycemia
CPT/HCPCS: 80053; 80061; 83036; 83605; 83615; 84443; 85025

== ENCOUNTER → 2022-01-29 08:43 | Outpatient (BNVA) | payer OTHER, SELFPAY | PROVIDERS: PCP Nurse Practitioner; Visit Provider Nurse Practitioner | DX: E03.8 Other specified hypothyroidism (principal); E78.2 Mixed hyperlipidemia; E11.65 Type 2 diabetes mellitus with hyperglycemia | CPT/HCPCS: 81000 ==

== ENCOUNTER 2022-03-10 09:10 | Outpatient (CLI) | payer OTHER, SELFPAY ==
[2022-03-10 09:42] LABS: Basophils % 0.5 %; Eosinophils # 0.2 10^3/uL (0.0-0.8); Eosinophils % 2.7 %; Hematocrit 46.8 % (42.0-52.0); Hemoglobin 15.5 g/dL (11.7-16.6); Lymphocytes # 2.8 10^3/uL (0.8-4.8); Lymphocytes % 33.1 %; Mean Corpuscular HGB Conc 33.1 g/dL (30.0-36.0); Mean Corpuscular Hemoglobin 30.4 pg (28.0-34.0); Mean Corpuscular Volume 91.8 fl (80-94); Mean Platelet Volume 10.2 fL (7.4-10.4); Monocytes # 0.6 10^3/uL (0.2-0.9); Monocytes % 7.6 %; Neutrophils # 4.67 10^3/uL (1.8-7.7); Neutrophils % 55.6 %; Nucleated Red Blood Cells % 0 %; Platelet Count 157 10^3/cmm (130-400); White Blood Count 8.4 10^3/uL (4.0-10.0)
[2022-03-10 10:05] LABS: Estmated Average Glucose 154
[2022-03-10 10:20] LABS: Alanine Aminotransferase 32 U/L (0-41); Albumin Level 3.9 g/dL (3.5-5.2); Alkaline Phosphatase 86 U/L (40-130); Aspartate Amino Transferase 22 U/L (0-40); Blood Urea Nitrogen 10 mg/dL (8-23); Calcium 8.7 mg/dL (8.5-10.5); Carbon Dioxide 26 mmol/L (22-29); Chloride 101 mmol/L (98-107); Globulin 2.5 g/dL (1.3-4.6); Glucose 280 mg/dL (65-115); Lactate Dehydrogenase 183 U/L (135-225); Osmolality Calculated 293 mOsm/kg (285-295); Sodium 137 mmol/L (136-145); Total Bilirubin 0.4 mg/dL (0.15-1.2); Total Protein 6.4 g/dL (6.6-8.7)
[2022-03-10 10:25] LABS: Prostate Specific AG Urology 5.83 ng/mL (0-4)
== END 2022-03-10 09:11 | disposition home or self-care (01) ==
LOC: LAB 09:13
PROVIDERS: Internal Medicine Medical Oncology; PCP Nurse Practitioner; Visit Provider Urology
DX: R97.20 Elevated prostate specific antigen [PSA] (principal); C91.10 Chronic lymphocytic leukemia of B-cell type not having achieved remission
CPT/HCPCS: 36415; 80053; 83036; 83615; 84153; 85025

== ENCOUNTER 2022-04-24 10:55 | Outpatient (CLI) | payer OTHER, SELFPAY ==
[2022-04-24 12:45] LABS: Estmated Average Glucose 160; Hemoglobin A1C 7.2 % (4.0-6.0)
[2022-04-24 12:57] LABS: Alanine Aminotransferase 23 U/L (0-41); Albumin Level 4.1 g/dL (3.5-5.2); Alkaline Phosphatase 82 U/L (40-130); Anion Gap 12.7 (5-19); Aspartate Amino Transferase 17 U/L (0-40); Blood Urea Nitrogen 13 mg/dL (8-23); Calcium 9.1 mg/dL (8.5-10.5); Carbon Dioxide 30 mmol/L (22-29); Chloride 102 mmol/L (98-107); Chol HDL Ratio 4.05 mg/dL (1.0-5.00); Cholesterol 166 mg/dL (0-200); Globulin 2.5 g/dL (1.3-4.6); Glucose 145 mg/dL (65-115); HDL Cholesterol 41 mg/dL (60-100); LDL Cholesterol Calculated 95 mg/dL (50-129); Osmolality Calculated 293 mOsm/kg (285-295); Potassium 4.7 mmol/L (3.5-5.1); Sodium 140 mmol/L (136-145); Thyroid Stimulating Hormone 1.76 uIU/mL (0.27-4.20); Total Bilirubin 0.6 mg/dL (0.15-1.2); Total Protein 6.6 g/dL (6.6-8.7); Triglycerides 149 mg/dL (0-150); VLDL Cholestrol Calculation 30 mg/dL (0-30)
== END 2022-04-24 10:56 | disposition home or self-care (01) ==
LOC: LAB 11:02
PROVIDERS: PCP Nurse Practitioner; Visit Provider Nurse Practitioner
DX: E03.8 Other specified hypothyroidism (principal); E11.65 Type 2 diabetes mellitus with hyperglycemia
CPT/HCPCS: 36415; 80053; 80061; 83036; 84443

== ENCOUNTER → 2022-08-22 08:46 | Outpatient (BNVA) | payer OTHER, SELFPAY | PROVIDERS: PCP Nurse Practitioner; Visit Provider Nurse Practitioner | DX: E11.65 Type 2 diabetes mellitus with hyperglycemia (principal); R97.20 Elevated prostate specific antigen [PSA]; C91.10 Chronic lymphocytic leukemia of B-cell type not having achieved remission; E03.8 Other specified hypothyroidism | CPT/HCPCS: 80053; 80061; 83036; 83615; 84153; 84443; 85025 ==

== ENCOUNTER 2022-08-25 12:57 | Oncology outpatient (recurring) (ONCR) | payer OTHER, SELFPAY | END 2022-09-16 23:59 | disposition home or self-care (01) | PROVIDERS: PCP Nurse Practitioner; Visit Provider Internal Medicine Medical Oncology | DX: Z08 Encounter for follow-up examination after completed treatment for malignant neoplasm; Z85.6 Personal history of leukemia; R53.83 Other fatigue; R97.20 Elevated prostate specific antigen [PSA]; Z92.21 Personal history of antineoplastic chemotherapy; Z92.25 Personal history of immunosuppression therapy | CPT/HCPCS: 81000; 81003; 82043 ==

== ENCOUNTER → 2022-11-17 08:42 | Outpatient (BNVA) | payer OTHER, SELFPAY | PROVIDERS: PCP Nurse Practitioner; Visit Provider Nurse Practitioner | DX: E11.65 Type 2 diabetes mellitus with hyperglycemia (principal); M25.50 Pain in unspecified joint; E78.2 Mixed hyperlipidemia; E03.8 Other specified hypothyroidism; E66.01 Morbid (severe) obesity due to excess calories; N40.1 Benign prostatic hyperplasia with lower urinary tract symptoms | CPT/HCPCS: 80053; 81000; 82043; 83036; 85025 ==

== ENCOUNTER 2022-11-17 13:01 | Outpatient (CLI) | payer OTHER, SELFPAY ==
--- NOTE | 2022-11-17 13:24 | XR_ITS ---
WS: [id number] XR cervical spine 3V* [id number] REASON FOR EXAM: PAIN IN UNSPECIFIED JOINT FINDINGS: Straightening of the normal lordosis of the cervical spine. No significant vertebral body abnormality. Normal odontoid. Severe narrowing of the C6-C7 disc space with moderate narrowing of the C6-C7 disc space. Significant anterior osteophyte formation with moderate uncinate 8 osteophyte formation at these 2 levels. 2 mm of anterolisthesis of C3 in relation to C4 and 1.5 mm of anterolisthesis of C3 in relation to C2 . Moderate degenerative arthropathy in the facet joints C2-C4. XR/XR cervical spine 3V* [id number] IMPRESSION: Degenerative spondylosis as above.
--- NOTE | 2022-11-17 13:25 | XR_ITS ---
WS: [id number] XR shoulder LT min 2V* [id number] REASON FOR EXAM: PAIN IN UNSPECIFIED JOINT FINDINGS: Old healed fracture of the distal third of the left clavicle. No acute fracture or focal bone lesion. Moderate/significant narrowing of the acromial clavicular joint space with subchondral sclerosis and moderate osteophytosis. Mild narrowing of the glenohumeral joint with mild subchondral sclerosis of the glenoid. No soft tiss ue abnormality. 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 Mild osteoarthritis of the glenohumeral joint.
--- NOTE | 2022-11-17 13:26 | XR_ITS ---
WS: [id number] XR shoulder RT min 2V* [id number] REASON FOR EXAM: PAIN IN UNSPECIFIED JOINT FINDINGS: No fracture or focal bone lesion. Moderate to significant narrowing of the joint spaces of the acromioclavicular joint with mild subcho ndral sclerosis and osteophytosis. Mild narrowing of the glenohumeral joint with mild subchondral sclerosis of the glenoid. XR/XR shoulder RT min 2V* [id number] IMPRESSION: Moderate osteoarthritis in the acromioclavicular joint. Mild osteoarthritis in the glenohumeral joint.
== END 2022-11-17 13:02 | disposition home or self-care (01) ==
PROVIDERS: PCP Nurse Practitioner; Visit Provider Nurse Practitioner
DX: M19.011 Primary osteoarthritis, right shoulder (principal)
CPT/HCPCS: 72040; 73030

== ENCOUNTER → 2023-02-16 10:34 | Outpatient (BNVA) | payer OTHER, SELFPAY | PROVIDERS: PCP Nurse Practitioner; Visit Provider Nurse Practitioner | DX: E11.65 Type 2 diabetes mellitus with hyperglycemia (principal); C91.10 Chronic lymphocytic leukemia of B-cell type not having achieved remission | CPT/HCPCS: 80053; 83036; 83615; 85025 ==

== ENCOUNTER 2023-02-23 12:42 | Oncology outpatient (recurring) (ONCR) | payer OTHER, SELFPAY | END 2023-03-19 23:59 | disposition home or self-care (01) | LOC: ONCMED 12:43 | PROVIDERS: PCP Nurse Practitioner; Visit Provider Internal Medicine Medical Oncology | DX: C91.10 Chronic lymphocytic leukemia of B-cell type not having achieved remission (principal); E11.65 Type 2 diabetes mellitus with hyperglycemia | CPT/HCPCS: 81000 ==

== ENCOUNTER → 2023-05-14 07:53 | Outpatient (BNVA) | payer OTHER, SELFPAY | PROVIDERS: PCP Nurse Practitioner; Visit Provider Nurse Practitioner | DX: E11.65 Type 2 diabetes mellitus with hyperglycemia (principal); C91.10 Chronic lymphocytic leukemia of B-cell type not having achieved remission | CPT/HCPCS: 80053; 80061; 81000; 83036; 84443; 85025 ==

== ENCOUNTER → 2023-08-13 09:15 | Outpatient (BNVA) | payer OTHER, SELFPAY | PROVIDERS: PCP Nurse Practitioner; Visit Provider Nurse Practitioner | DX: E11.65 Type 2 diabetes mellitus with hyperglycemia (principal) | CPT/HCPCS: 83036 ==

== ENCOUNTER → 2023-08-28 08:23 | Outpatient (BNVA) | payer OTHER, SELFPAY | PROVIDERS: PCP Nurse Practitioner; Visit Provider Internal Medicine Medical Oncology | DX: C91.10 Chronic lymphocytic leukemia of B-cell type not having achieved remission (principal); E03.8 Other specified hypothyroidism; E78.2 Mixed hyperlipidemia | CPT/HCPCS: 80053; 80061; 83615; 84443; 85025 ==

== ENCOUNTER → 2023-09-01 09:06 | Outpatient (BNVA) | payer BC, SELFPAY | PROVIDERS: PCP Nurse Practitioner; Visit Provider Nurse Practitioner | DX: E11.65 Type 2 diabetes mellitus with hyperglycemia (principal); N40.1 Benign prostatic hyperplasia with lower urinary tract symptoms; E03.8 Other specified hypothyroidism; E78.2 Mixed hyperlipidemia; Z79.899 Other long term (current) drug therapy | CPT/HCPCS: 81000 ==

== ENCOUNTER → 2023-11-20 10:25 | Outpatient (BNVA) | payer BC, SELFPAY | PROVIDERS: PCP Nurse Practitioner; Visit Provider Nurse Practitioner | DX: E11.9 Type 2 diabetes mellitus without complications (principal); E03.8 Other specified hypothyroidism; E11.65 Type 2 diabetes mellitus with hyperglycemia | CPT/HCPCS: 80053; 80061; 81000; 83036; 84443; 85025 ==

== ENCOUNTER 2024-02-16 09:37 | Outpatient (CLI) | payer BC, SELFPAY ==
--- NOTE | 2024-02-16 09:43 | XRR_ITS ---
PROCEDURE INFORMATION: Exam: XR Thoracic Spine Exam date and time: 02/16/2024 9:54 AM Age: 68 years old Clinical indication: Pain in thoracic spine; Patient HX: HX of leukemia; Additional info: M54.9 - dorsalgia, unspecified TECHNIQUE: Imaging protocol: Radiologic exam of the thoracic spine. Views: 3 views. COMPARISON: CR XR lumbar spine 2-3V* [id number] 02/16/2024 9:54 AM FINDINGS: Bones/joints: Slight left scoliosis. Mild multilevel disc space narrowing and spurring. No fracture, lytic, or sclerotic bone lesion. Soft tissues: Unremarkable. Organs: Cholelithiasis. XR/XR thoracic spine 3V* [id number] IMPRESSION: No acute findings.
--- NOTE | 2024-02-16 09:43 | XRR_ITS ---
PROCEDURE INFORMATION: Exam: XR Lumbosacral Spine Exam date and time: 02/16/2024 9:54 AM Age: 68 years old Clinical indication: Dorslagia and low back pain; Prior surgery; Surgery date: 6+ months; Surgery type: L spine; Patient HX: HX of leukemia; Additional info: M54.9 - dorsalgia, unspecified TECHNIQUE: Imaging protocol: Radiologic exam of the lumbosacral spine. Views: 2 or 3 views. COMPARISON: CT chest abdpel w/*[id number] 04/04/2019 12:30 PM FINDINGS: Bones/joints: Mild disc space narrowing and spurring L4 through S1. The pedicles are intact. No fracture, lytic, or sclerotic bone lesion. Soft tissues: The perivertebral soft tissues are normal. Organs: Cholelithiasis. XR/XR lumbar spine 2-3V* [id number] IMPRESSION: Mild degenerative changes.
== END 2024-02-16 09:38 | disposition home or self-care (01) ==
PROVIDERS: PCP Nurse Practitioner; Visit Provider Nurse Practitioner
DX: M54.9 Dorsalgia, unspecified (principal)
CPT/HCPCS: 72072; 72100

== ENCOUNTER → 2024-03-04 08:02 | Outpatient (BNVA) | payer BC, SELFPAY | PROVIDERS: PCP Nurse Practitioner; Visit Provider Nurse Practitioner | DX: E11.65 Type 2 diabetes mellitus with hyperglycemia (principal); C91.10 Chronic lymphocytic leukemia of B-cell type not having achieved remission; E03.8 Other specified hypothyroidism | CPT/HCPCS: 80053; 81000; 83036; 83615; 85007; 85025 ==

== ENCOUNTER 2024-03-07 14:48 | Oncology outpatient (recurring) (ONCR) | payer BC, SELFPAY | END 2024-03-19 23:59 | disposition home or self-care (01) | PROVIDERS: PCP Nurse Practitioner; Visit Provider Internal Medicine Medical Oncology | DX: C91.10 Chronic lymphocytic leukemia of B-cell type not having achieved remission (principal) | CPT/HCPCS: 80061; 82607; 84443 ==

== ENCOUNTER 2024-04-11 10:30 | Outpatient (CLI) | payer BC, SELFPAY ==
--- NOTE | 2024-04-11 11:15 | US_ITS ---
WS: [id number] THYROID ULTRASOUND HISTORY: E03.8 - Other specified hypothyroidism COMPARISON: None available. Right lobe: 1.7 cm x 2.4 cm x 4.9 cm (w x ap x l). Volume: 9.8 cm3. Enlarged heterogeneous lobe with scattered areas of decreased echogenicity. There are a few small sca ttered nodules with the largest measuring 0.6 x 0.6 x 0.8 cm in the inferior lobe. No increased vascu larity. Left lobe: 1.9 cm x 2.1 cm x 4.2 cm (w x ap x l). Volume: 8.0 cm3. Enlarged heterogeneous gland. No mass. Isthmus: 0.4 cm. Bilateral cervical chain lymph nodes. Slightly larger lymph node on the LEFT but normal fatty hilum a nd the cortex and shape remain normal also. US/US thyroid [id number] IMPRESSION: 1. Enlarged heterogeneous thyroid. There is no discrete nodule on a background of heterogeneity. Probably a goiter. It would be difficult to exclude neoplasm but there is no area that is suspicious.
== END 2024-04-11 10:31 | disposition home or self-care (01) ==
LOC: RAD 10:30
PROVIDERS: PCP Nurse Practitioner; Visit Provider Nurse Practitioner
DX: E03.8 Other specified hypothyroidism (principal); E04.2 Nontoxic multinodular goiter
CPT/HCPCS: 76536

== ENCOUNTER → 2024-04-29 08:19 | Outpatient (BNVA) | payer BC, SELFPAY | PROVIDERS: PCP Nurse Practitioner; Visit Provider Internal Medicine Medical Oncology | DX: C91.10 Chronic lymphocytic leukemia of B-cell type not having achieved remission (principal) | CPT/HCPCS: 80053; 84443; 85025 ==

== ENCOUNTER → 2024-05-20 08:06 | Outpatient (BNVA) | payer BC, SELFPAY | PROVIDERS: PCP Nurse Practitioner; Visit Provider Nurse Practitioner | DX: E11.9 Type 2 diabetes mellitus without complications (principal); E03.8 Other specified hypothyroidism | CPT/HCPCS: 80053; 80061; 81000; 83036; 84443 ==

== ENCOUNTER 2024-08-29 13:25 | Oncology outpatient (recurring) (ONCR) | payer MEDICARE, OTHER, SELFPAY ==
[2024-08-29 14:38] LABS: Alanine Aminotransferase 24 U/L (0-41); Alkaline Phosphatase 81 U/L (40-130); Anion Gap 16.4 (5-19); Aspartate Amino Transferase 31 U/L (0-40); Blood Urea Nitrogen 18 mg/dL (8-23); Calcium 8.7 mg/dL (8.5-10.5); Carbon Dioxide 24 mmol/L (22-29); Chloride 101 mmol/L (98-107); Chol HDL Ratio 5.84 mg/dL (1.0-5.00); Cholesterol 187 mg/dL (0-200); Creatinine Clr Calc Pharmacy 99.6345; Globulin 2.4 g/dL (1.3-4.6); Glomerular Filtration Rate 74.5 mL/min (90-130); Glucose 167 mg/dL (65-115); HDL Cholesterol 32 mg/dL (60-100); LDL Cholesterol Calculated 128 mg/dL (50-129); Lactate Dehydrogenase 291 U/L (135-225); Osmolality Calculated 290 mOsm/kg (285-295); Potassium 4.4 mmol/L (3.5-5.1); Prostate Specific Antigen Scr 8.86 ng/mL (0-4); Sodium 137 mmol/L (136-145); Total Bilirubin 0.6 mg/dL (0.15-1.2); Total Protein 6.4 g/dL (6.6-8.7); Triglycerides 137 mg/dL (0-150); Uric Acid 7.8 mg/dL (3.4-7.0)
[2024-08-29 15:11] LABS: Estmated Average Glucose 148; Hemoglobin A1C 6.8 % (4.0-6.0)
[2024-08-29 15:25] LABS: Basophils # 0.1 10^3/uL (0.0-0.1); Basophils % 0.1 %; Eosinophils # 0.4 10^3/uL (0.0-0.8); Eosinophils % 0.5 %; Hematocrit 42.1 % (37-53); Lymphocytes # 69.3 10^3/uL (0.8-4.8); Lymphocytes % 88.2 %; Mean Corpuscular HGB Conc 31.1 g/dL (30-55); Mean Corpuscular Volume 96.6 fl (82-101); Mean Platelet Volume 10.6 fL (7.4-10.4); Monocytes # 3.3 10^3/uL (0.2-0.9); Monocytes % 4.2 %; Neutrophils # 5.24 10^3/uL (1.8-7.7); Neutrophils % 6.7 %; Nucleated Red Blood Cells % 0 %; Platelet Count 145 10^3/cmm (157-399); Red Blood Count 4.36 10^6/uL (3.85-5.65)
[2024-08-29 15:52] LABS: White Blood Count 78.58 10^3/uL (3.29-11.43)
[2024-08-29 15:53] LABS: Slide Review Slide Review Perform
[2024-08-30 12:25] LABS: Thyroid Stimulating Hormone 1.74 uIU/mL (0.27-4.20)
== END 2024-09-16 23:59 | disposition home or self-care (01) ==
PROVIDERS: Internal Medicine Hematology & Oncology; PCP Nurse Practitioner; Visit Provider Internal Medicine Medical Oncology
DX: Z08 Encounter for follow-up examination after completed treatment for malignant neoplasm (principal); Z85.6 Personal history of leukemia; E11.9 Type 2 diabetes mellitus without complications; E04.1 Nontoxic single thyroid nodule; Z92.21 Personal history of antineoplastic chemotherapy
CPT/HCPCS: 36415; 80053; 80061; 81000; 83036; 83615; 84443; 84550; 85025; 87086; 99214; G0103

== ENCOUNTER 2024-09-30 07:42 | Outpatient (CLI) | payer MEDICARE, OTHER, SELFPAY ==
--- NOTE | 2024-09-30 07:46 | XR_ITS ---
WS: [id number] Lumbar spine, 3 views, 09/30/2024 Clinical Data: M54.50 - Low back pain, unspecified Comparison: Lumbar spine, 02/16/2024 Findings: No compression fractures or subluxation is seen. There is degenerative disc narrowing at all levels from L2-L3 through L5-S1 with spurring. There is facet joint arthritis from L3-L4 through L5-S1. There is a dextroscoliosis. The transverse processes and SI joints are normal. There are probable gallstones in the right upper quadrant. There is a small calcification overlying the left kidney. XR/XR lumbar spine 2-3V* [id number] Impression: 1. Multilevel degenerative disc narrowing and spurring from L2-L3 through L5-S1 . 2. Facet joint arthritis L3-L4 through L5-S1 with dextroscoliosis. 3. Probable cholelithiasis.
== END 2024-09-30 07:43 | disposition home or self-care (01) ==
LOC: LAB 07:43
PROVIDERS: PCP Nurse Practitioner; Visit Provider Nurse Practitioner
DX: M51.369 Other intervertebral disc degeneration, lumbar region without mention of lumbar back pain or lower extremity pain (principal); M79.605 Pain in left leg; M51.379 Other intervertebral disc degeneration, lumbosacral region without mention of lumbar back pain or lower extremity pain; M47.896 Other spondylosis, lumbar region; M47.897 Other spondylosis, lumbosacral region; M41.86 Other forms of scoliosis, lumbar region; R93.3 Abnormal findings on diagnostic imaging of other parts of digestive tract; N28.89 Other specified disorders of kidney and ureter
CPT/HCPCS: 72100

== ENCOUNTER 2024-10-25 06:59 | Oncology outpatient (recurring) (ONCR) | payer MEDICARE, OTHER, SELFPAY ==
--- NOTE | 2024-10-25 07:15 | MR_ITS ---
WS: [id number] MRI LUMBAR SPINE NONCONTRAST HISTORY: M54.50 - Low back pain, unspecified COMPARISON: Radiograph 09/30/2024 TECHNIQUE: Sagittal and axial multisequence imaging is submitted. Degenerative changes also present within the cervical spine. Osteophytes and disc encroachment upon the cervical cord at C5-6, C6-7 and C7-T1. L3 anterolisthesis by 2 mm. Hypertrophic osteophytes at L4 and L5. Disc spaces are desiccated and slightly narrowed. Conus terminates normally at L1. T11-12: Central disc protrusion with moderate facet arthritis. This disc level is incompletely included. T12-L1: Asymmetric disc bulging with a central disc protrusion. Facet joint arthropathy. Mild foraminal stenosis. L1-L2: Large extruded central disc extends above and below the disc space. Length of the disc is 1.8 cm. There is significant encroachment upon the thecal sac and deformity. Moderate central and subarticular recess stenosis. Additional annular disc bulging with osteophyte resulting in moderate RIGHT and mild LEFT foraminal stenosis. L2-L3: Asymmetric disc bulging to the RIGHT. Effacement of the ventral CSF. Annular disc bulging with foraminal broad-based disc protrusions. Severe facet arthritis. Moderate central and bilateral subarticular recess. Moderate to severe RIGHT and moderate LEFT foraminal stenosis. L3-L4: Diffuse annular disc bulging with osteophytic ridging and marked facet arthritis. 5 mm facet joint cyst on the LEFT encroaching into the central canal. Fluid in the facet joints. Disc bulging extending into the foramina and contacting the L3 nerve roots. Moderate central and bilateral subarticular recess stenosis with severe bilateral foraminal stenosis. L4-L5: Diffuse osteophytic ridging with a large central to RIGHT paracentral and RIGHT foraminal disc protrusion. This disc protrusion is contacting and displacing the thecal sac and the traversing RIGHT L5 nerve root. Additional mild contact on the RIGHT L4 exiting nerve root. Mild central and LEFT foraminal stenosis. L5-S1: Osteophytic ridging with annular disc bulging. Central disc protrusion and RIGHT paracentral disc protrusion contacts the RIGHT S1 nerve root. Mild central and bilateral subarticular recess stenosis. Disc osteophyte disease resulting in moderate to severe RIGHT and moderate LEFT foraminal stenosis. Paravertebral soft tissues are negative. MR/MR lumbar spine wo con* [id number] IMPRESSION: 1. Advanced multilevel areas of stenosis due to combination of disc bulging, o steophytes and disc protrusions and facet arthropathy. 2. L1-2: Large extruded central disc protrusion extends above and below the di sc. Moderate central, subarticular recess stenosis. Moderate RIGHT foraminal an d mild LEFT foraminal stenosis due to disc and osteophyte disease. 3. L2-3: Moderate central and bilateral subarticular recess stenosis. Moderate to severe RIGHT and moderate LEFT foraminal stenosis. 4. L3-4: Moderate central, bilateral subarticular recess stenosis and severe f oraminal stenosis. 5. L4-5: Large central to RIGHT paracentral and RIGHT foraminal disc protrusio n contacting the traversing RIGHT L5 nerve root. Additional mild contact on the RIGHT L4 exiting nerve root. Mild central and LEFT foraminal stenosis. 6. L5-S1: Central and RIGHT paracentral disc protrusions. Contact on the RIGHT S1 nerve root. Moderate to severe RIGHT and moderate LEFT foraminal stenosis. Mild central subarticular recess stenosis. 7. T11-T12: Central disc protrusion. 8. T12-L1: Small central disc protrusion.
== END 2024-11-16 23:59 | disposition home or self-care (01) ==
LOC: RAD 07:00 → ONCMED 10:52
PROVIDERS: PCP Nurse Practitioner; Visit Provider Nurse Practitioner
DX: Z08 Encounter for follow-up examination after completed treatment for malignant neoplasm (principal); Z85.6 Personal history of leukemia; E11.9 Type 2 diabetes mellitus without complications; E04.1 Nontoxic single thyroid nodule; Z92.21 Personal history of antineoplastic chemotherapy; M54.50 Low back pain, unspecified; M79.605 Pain in left leg
CPT/HCPCS: 72148

== ENCOUNTER 2024-11-21 14:15 | Oncology outpatient (recurring) (ONCR) | payer MEDICARE, OTHER, SELFPAY ==
[2024-11-18 14:26] LABS: Basophils # 0.1 10^3/uL (0.0-0.1); Basophils % 0.1 %; Eosinophils # 0.4 10^3/uL (0.0-0.8); Eosinophils % 0.3 %; Hematocrit 41.4 % (37-53); Lymphocytes % 91.8 %; Mean Corpuscular HGB Conc 30.2 g/dL (30-55); Mean Corpuscular Hemoglobin 29.3 pg (27-33); Mean Platelet Volume 9.4 fL (7.4-10.4); Monocytes # 3.4 10^3/uL (0.2-0.9); Monocytes % 2.9 %; Neutrophils # 5.42 10^3/uL (1.8-7.7); Neutrophils % 4.6 %; Nucleated Red Blood Cells % 0 %; Platelet Count 162 10^3/cmm (157-399); Red Blood Count 4.27 10^6/uL (3.85-5.65); Red Cell Distribution Width 14.6 % (12.1-15.1)
[2024-11-18 14:54] LABS: Alanine Aminotransferase 18 U/L (0-41); Alkaline Phosphatase 81 U/L (40-130); Anion Gap 14.5 (5-19); Aspartate Amino Transferase 21 U/L (0-40); Blood Urea Nitrogen 14 mg/dL (8-23); Calcium 8.8 mg/dL (8.5-10.5); Carbon Dioxide 26 mmol/L (22-29); Chloride 103 mmol/L (98-107); Globulin 2.3 g/dL (1.3-4.6); Glomerular Filtration Rate 74.3 mL/min (90-130); Glucose 133 mg/dL (65-115); Lactate Dehydrogenase 269 U/L (135-225); Osmolality Calculated 290 mOsm/kg (285-295); Potassium 4.5 mmol/L (3.5-5.1); Sodium 139 mmol/L (136-145); Thyroid Stimulating Hormone 3.57 uIU/mL (0.27-4.20); Total Bilirubin 0.5 mg/dL (0.15-1.2); Total Protein 6.3 g/dL (6.6-8.7)
[2024-11-18 15:07] LABS: Lymphocytes # 106.6 10^3/uL (0.8-4.8); Slide Review Slide Review Perform; White Blood Count 116.13 10^3/uL (3.29-11.43)
[2024-11-18 15:10] LABS: Estmated Average Glucose 140; Hemoglobin A1C 6.5 % (4.0-6.0)
== END 2024-12-17 23:59 | disposition home or self-care (01) ==
PROVIDERS: PCP Nurse Practitioner; Referring Provider Nurse Practitioner Family; Visit Provider Internal Medicine Medical Oncology
DX: C91.10 Chronic lymphocytic leukemia of B-cell type not having achieved remission (principal); E11.65 Type 2 diabetes mellitus with hyperglycemia; R03.0 Elevated blood-pressure reading, without diagnosis of hypertension; D64.9 Anemia, unspecified; Z79.899 Other long term (current) drug therapy
CPT/HCPCS: 80053; 81000; 83036; 83615; 84443; 85025; 99214

== ENCOUNTER → 2025-01-24 07:54 | Outpatient (BNVA) | payer MEDICARE, OTHER, SELFPAY | PROVIDERS: PCP Nurse Practitioner | DX: S69.91XA Unspecified injury of right wrist, hand and finger(s), initial encounter (principal); X58.XXXA Exposure to other specified factors, initial encounter | CPT/HCPCS: 73130 ==

== ENCOUNTER → 2025-02-09 08:03 | Outpatient (BNVA) | payer MEDICARE, OTHER, SELFPAY | PROVIDERS: PCP Nurse Practitioner; Visit Provider Nurse Practitioner | DX: E11.65 Type 2 diabetes mellitus with hyperglycemia (principal); C91.10 Chronic lymphocytic leukemia of B-cell type not having achieved remission | CPT/HCPCS: 80053; 80061; 81000; 83036; 84443; 85025 ==

== ENCOUNTER 2025-02-13 13:36 | Oncology outpatient (recurring) (ONCR) | payer MEDICARE, OTHER, SELFPAY | END 2025-02-16 23:59 | disposition home or self-care (01) | LOC: ONCMED 13:37 | PROVIDERS: PCP Nurse Practitioner; Referring Provider Nurse Practitioner Family; Visit Provider Internal Medicine Medical Oncology | DX: C91.10 Chronic lymphocytic leukemia of B-cell type not having achieved remission (principal); R03.0 Elevated blood-pressure reading, without diagnosis of hypertension; Z79.899 Other long term (current) drug therapy | CPT/HCPCS: 99214 ==

== ENCOUNTER 2025-03-07 07:59 | Oncology outpatient (recurring) (ONCR) | payer MEDICARE, OTHER, SELFPAY ==
[2025-03-06 08:19] LABS: Hematocrit 38.7 % (37-53); Hemoglobin 11.50 g/dL (11.27-16.99); Mean Corpuscular HGB Conc 29.7 g/dL (30-55); Mean Corpuscular Hemoglobin 29.1 pg (27-33); Mean Corpuscular Volume 98.0 fl (82-101); Nucleated Red Blood Cells % 0 %; Platelet Count 176 10^3/cmm (157-399); Red Blood Count 3.95 10^6/uL (3.85-5.65)
[2025-03-06 08:42] LABS: Alanine Aminotransferase 24 U/L (0-41); Albumin Level 3.9 g/dL (3.5-5.2); Alkaline Phosphatase 87 U/L (40-130); Anion Gap 10.3 (5-19); Aspartate Amino Transferase 25 U/L (0-40); Blood Urea Nitrogen 13 mg/dL (8-23); Calcium 8.3 mg/dL (8.5-10.5); Carbon Dioxide 27 mmol/L (22-29); Chloride 103 mmol/L (98-107); Creatinine Clr Calc Pharmacy 107.7773; Globulin 2.0 g/dL (1.3-4.6); Glucose 144 mg/dL (65-115); Osmolality Calculated 285 mOsm/kg (285-295); Potassium 4.3 mmol/L (3.5-5.1); Sodium 136 mmol/L (136-145); Thyroid Stimulating Hormone 3.19 uIU/mL (0.27-4.20); Total Protein 5.9 g/dL (6.6-8.7)
[2025-03-06 09:03] LABS: White Blood Count 154.92 10^3/uL (3.29-11.43)
[2025-03-06] MEDS: diphenhydrAMINE 50 mg/mL SDV 1mL IVP (09:36)
[2025-03-06] MEDS: obinutuzumab 100 MG in sodium chloride 0.9% (100 ml) 100 ML 26 MG IV (10:13)
[2025-03-06 14:24] VITALS: BP 146/75; PULSE 89; RESP 16; TEMP 36.1
[2025-03-07] VITALS (13 sets, daily range): BP systolic 114–148; BP diastolic 62–76; PULSE 65–77; RESP 16–18; TEMP 36–37; O2SAT 94–99
[2025-03-07] MEDS: diphenhydrAMINE 50 mg/mL SDV 1mL IVP (09:10)
--- NOTE | 2025-03-07 16:05 | PC.NURSE ---
I went to bump the pt's medication up, I asked the patient how he was feeling and he said I'm starting to itch some. I stopped the infusion and got one of the other nurses to help. Patient had hives and itching all over. BP was elevated and pt was diaphoresis.
== END 2025-03-07 23:59 | disposition home or self-care (01) ==
PROVIDERS: Nurse Practitioner; PCP Nurse Practitioner; Referring Provider Nurse Practitioner Family; Visit Provider Internal Medicine Medical Oncology
DX: Z51.11 Encounter for antineoplastic chemotherapy (principal); C91.12 Chronic lymphocytic leukemia of B-cell type in relapse; Z79.52 Long term (current) use of systemic steroids; Z79.899 Other long term (current) drug therapy
CPT/HCPCS: 80053; 84443; 85025; 96367; 96375; 96413; 96415; 99215; J1100; J1200; J3490; J7050; J9301; J9999

== ENCOUNTER 2025-03-16 07:17 | Oncology outpatient (recurring) (ONCR) | payer MEDICARE, OTHER, SELFPAY ==
[2025-03-16 07:52] LABS: Hematocrit 34.2 % (37-53); Hemoglobin 11.00 g/dL (11.27-16.99); Mean Corpuscular HGB Conc 32.2 g/dL (30-55); Mean Corpuscular Hemoglobin 29.4 pg (27-33); Mean Corpuscular Volume 91.4 fl (82-101); Nucleated Red Blood Cells % 0 %; Platelet Count 124 10^3/cmm (157-399); Red Blood Count 3.74 10^6/uL (3.85-5.65); White Blood Count 4.25 10^3/uL (3.29-11.43)
[2025-03-16 08:10] LABS: Alanine Aminotransferase 27 U/L (0-41); Albumin Level 3.2 g/dL (3.5-5.2); Alkaline Phosphatase 130 U/L (40-130); Anion Gap 12.5 (5-19); Aspartate Amino Transferase 25 U/L (0-40); Blood Urea Nitrogen 11 mg/dL (8-23); Calcium 8.4 mg/dL (8.5-10.5); Carbon Dioxide 24 mmol/L (22-29); Chloride 103 mmol/L (98-107); Creatinine Clr Calc Pharmacy 106.7693; Globulin 2.1 g/dL (1.3-4.6); Glucose 237 mg/dL (65-115); Osmolality Calculated 287 mOsm/kg (285-295); Potassium 4.5 mmol/L (3.5-5.1); Sodium 135 mmol/L (136-145); Total Protein 5.3 g/dL (6.6-8.7)
== END 2025-03-19 23:59 | disposition home or self-care (01) ==
LOC: ONCMED 07:17
PROVIDERS: Nurse Practitioner; PCP Nurse Practitioner; Referring Provider Nurse Practitioner Family; Visit Provider Internal Medicine Medical Oncology
DX: C91.12 Chronic lymphocytic leukemia of B-cell type in relapse (principal)
CPT/HCPCS: 80053; 85025; 99214

== ENCOUNTER 2025-04-06 07:30 | Oncology outpatient (recurring) (ONCR) | payer MEDICARE, OTHER, SELFPAY ==
[2025-03-23 08:10] LABS: Hematocrit 31.0 % (37-53); Hemoglobin 10.00 g/dL (11.27-16.99); Mean Corpuscular HGB Conc 32.3 g/dL (30-55); Mean Corpuscular Hemoglobin 29.5 pg (27-33); Mean Corpuscular Volume 91.4 fl (82-101); Nucleated Red Blood Cells % 0 %; Platelet Count 161 10^3/cmm (157-399); Red Blood Count 3.39 10^6/uL (3.85-5.65); White Blood Count 3.29 10^3/uL (3.29-11.43)
[2025-03-23 08:27] LABS: Alanine Aminotransferase 19 U/L (0-41); Albumin Level 3.4 g/dL (3.5-5.2); Alkaline Phosphatase 76 U/L (40-130); Anion Gap 12.2 (5-19); Aspartate Amino Transferase 23 U/L (0-40); Blood Urea Nitrogen 8 mg/dL (8-23); Calcium 8.5 mg/dL (8.5-10.5); Carbon Dioxide 26 mmol/L (22-29); Chloride 105 mmol/L (98-107); Globulin 1.8 g/dL (1.3-4.6); Glucose 222 mg/dL (65-115); Osmolality Calculated 293 mOsm/kg (285-295); Potassium 4.2 mmol/L (3.5-5.1); Sodium 139 mmol/L (136-145); Total Protein 5.2 g/dL (6.6-8.7)
[2025-03-23 08:52] LABS: Slide Review Slide Review Perform
[2025-03-30 12:55] LABS: Hematocrit 36.2 % (37-53); Hemoglobin 11.50 g/dL (11.27-16.99); Mean Corpuscular HGB Conc 31.8 g/dL (30-55); Mean Corpuscular Hemoglobin 30.5 pg (27-33); Mean Corpuscular Volume 96.0 fl (82-101); Nucleated Red Blood Cells % 0 %; Platelet Count 161 10^3/cmm (157-399); Red Blood Count 3.77 10^6/uL (3.85-5.65); White Blood Count 6.48 10^3/uL (3.29-11.43)
[2025-03-30 13:19] LABS: Alanine Aminotransferase 24 U/L (0-41); Albumin Level 4.0 g/dL (3.5-5.2); Alkaline Phosphatase 68 U/L (40-130); Anion Gap 10.5 (5-19); Aspartate Amino Transferase 23 U/L (0-40); Blood Urea Nitrogen 11 mg/dL (8-23); Calcium 8.8 mg/dL (8.5-10.5); Carbon Dioxide 28 mmol/L (22-29); Chloride 109 mmol/L (98-107); Creatinine Clr Calc Pharmacy 108.1804; Globulin 2.0 g/dL (1.3-4.6); Glucose 102 mg/dL (65-115); Osmolality Calculated 294 mOsm/kg (285-295); Potassium 5.5 mmol/L (3.5-5.1); Sodium 142 mmol/L (136-145); Total Protein 6.0 g/dL (6.6-8.7); Uric Acid 3.9 mg/dL (3.4-7.0)
[2025-03-30 13:35] LABS: Slide Review Slide Review Perform
[2025-04-06] VITALS (9 sets, daily range): BP systolic 121–151; BP diastolic 67–78; PULSE 78–92; RESP 16–18; TEMP 35.9–36.6; O2SAT 93–98
[2025-04-06 07:43] LABS: Hematocrit 38.6 % (37-53); Hemoglobin 12.50 g/dL (11.27-16.99); Mean Corpuscular HGB Conc 32.4 g/dL (30-55); Mean Corpuscular Hemoglobin 30.7 pg (27-33); Mean Corpuscular Volume 94.8 fl (82-101); Nucleated Red Blood Cells % 0 %; Platelet Count 161 10^3/cmm (157-399); Red Blood Count 4.07 10^6/uL (3.85-5.65); White Blood Count 6.92 10^3/uL (3.29-11.43)
[2025-04-06 08:11] LABS: Alanine Aminotransferase 24 U/L (0-41); Albumin Level 4.0 g/dL (3.5-5.2); Alkaline Phosphatase 69 U/L (40-130); Anion Gap 12.1 (5-19); Aspartate Amino Transferase 25 U/L (0-40); Blood Urea Nitrogen 14 mg/dL (8-23); Calcium 8.8 mg/dL (8.5-10.5); Carbon Dioxide 26 mmol/L (22-29); Chloride 104 mmol/L (98-107); Creatinine Clr Calc Pharmacy 617.2120; Globulin 2.2 g/dL (1.3-4.6); Glucose 174 mg/dL (65-115); Osmolality Calculated 291 mOsm/kg (285-295); Potassium 4.1 mmol/L (3.5-5.1); Sodium 138 mmol/L (136-145); Total Protein 6.2 g/dL (6.6-8.7); Uric Acid 4.6 mg/dL (3.4-7.0)
[2025-04-06 08:58] LABS: Slide Review Slide Review Perform
[2025-04-06] MEDS: diphenhydrAMINE 50 mg/mL SDV 1mL IVP (09:50)
[2025-04-06] MEDS: obinutuzumab 1,000 MG in sodium chloride 0.9% 250 ML 100 MG IV (10:39)
[2025-04-06] MEDS: methylPREDNISolone sod succ 40 mg/mL INJ IVP (11:34)
[2025-04-06] MEDS: diphenhydrAMINE 50 mg/mL SDV 1mL 25 MG IVP (13:46)
[2025-04-06] MEDS: sodium chloride 0.9% (100 ml) 100 ML 75 ML (15:35)
== END 2025-04-06 23:59 | disposition home or self-care (01) ==
PROVIDERS: Nurse Practitioner; PCP Nurse Practitioner; Referring Provider Nurse Practitioner Family; Visit Provider Internal Medicine
DX: Z53.9 Procedure and treatment not carried out, unspecified reason; Z51.11 Encounter for antineoplastic chemotherapy; C91.12 Chronic lymphocytic leukemia of B-cell type in relapse; Z79.899 Other long term (current) drug therapy; Z79.52 Long term (current) use of systemic steroids
CPT/HCPCS: 36415; 80053; 83615; 84550; 85025; 96367; 96375; 96413; 96415; 99213; 99214; J1100; J1200; J2919; J7050; J9301; J9999

== ENCOUNTER 2025-04-13 09:34 | Oncology outpatient (recurring) (ONCR) | payer MEDICARE, OTHER, SELFPAY ==
[2025-04-13 09:52] LABS: Hematocrit 39.6 % (37-53); Hemoglobin 13.00 g/dL (11.27-16.99); Mean Corpuscular HGB Conc 32.8 g/dL (30-55); Mean Corpuscular Hemoglobin 30.7 pg (27-33); Mean Corpuscular Volume 93.6 fl (82-101); Nucleated Red Blood Cells % 0 %; Platelet Count 115 10^3/cmm (157-399); Red Blood Count 4.23 10^6/uL (3.85-5.65); White Blood Count 3.47 10^3/uL (3.29-11.43)
[2025-04-13 10:15] LABS: Alanine Aminotransferase 28 U/L (0-41); Albumin Level 3.7 g/dL (3.5-5.2); Alkaline Phosphatase 86 U/L (40-130); Anion Gap 14.2 (5-19); Aspartate Amino Transferase 31 U/L (0-40); Blood Urea Nitrogen 11 mg/dL (8-23); Calcium 8.9 mg/dL (8.5-10.5); Carbon Dioxide 27 mmol/L (22-29); Chloride 102 mmol/L (98-107); Creatinine Clr Calc Pharmacy 120.1155; Globulin 2.2 g/dL (1.3-4.6); Glucose 173 mg/dL (65-115); Osmolality Calculated 292 mOsm/kg (285-295); Potassium 4.2 mmol/L (3.5-5.1); Sodium 139 mmol/L (136-145); Total Protein 5.9 g/dL (6.6-8.7)
== END 2025-04-18 23:59 | disposition home or self-care (01) ==
PROVIDERS: Internal Medicine; PCP Nurse Practitioner; Referring Provider Nurse Practitioner Family; Visit Provider Nurse Practitioner
DX: C91.12 Chronic lymphocytic leukemia of B-cell type in relapse (principal); Z79.899 Other long term (current) drug therapy
CPT/HCPCS: 36415; 80053; 85025; 99213

== ENCOUNTER 2025-05-04 07:30 | Oncology outpatient (recurring) (ONCR) | payer MEDICARE, OTHER, SELFPAY ==
[2025-04-20 08:44] LABS: Hematocrit 41.1 % (37-53); Hemoglobin 13.40 g/dL (11.27-16.99); Mean Corpuscular HGB Conc 32.6 g/dL (30-55); Mean Corpuscular Hemoglobin 30.6 pg (27-33); Mean Corpuscular Volume 93.8 fl (82-101); Nucleated Red Blood Cells % 0 %; Platelet Count 231 10^3/cmm (157-399); Red Blood Count 4.38 10^6/uL (3.85-5.65); White Blood Count 5.53 10^3/uL (3.29-11.43)
[2025-04-20 09:08] LABS: Alanine Aminotransferase 19 U/L (0-41); Albumin Level 4.0 g/dL (3.5-5.2); Alkaline Phosphatase 71 U/L (40-130); Anion Gap 13.4 (5-19); Aspartate Amino Transferase 23 U/L (0-40); Blood Urea Nitrogen 15 mg/dL (8-23); Calcium 9.1 mg/dL (8.5-10.5); Carbon Dioxide 28 mmol/L (22-29); Chloride 102 mmol/L (98-107); Creatinine Clr Calc Pharmacy 105.9627; Globulin 2.2 g/dL (1.3-4.6); Glucose 183 mg/dL (65-115); Osmolality Calculated 294 mOsm/kg (285-295); Potassium 4.4 mmol/L (3.5-5.1); Sodium 139 mmol/L (136-145); Total Protein 6.2 g/dL (6.6-8.7)
[2025-04-27 09:12] LABS: Hematocrit 39.4 % (37-53); Hemoglobin 13.10 g/dL (11.27-16.99); Mean Corpuscular HGB Conc 33.2 g/dL (30-55); Mean Corpuscular Hemoglobin 31.1 pg (27-33); Mean Corpuscular Volume 93.6 fl (82-101); Nucleated Red Blood Cells % 0 %; Platelet Count 255 10^3/cmm (157-399); Red Blood Count 4.21 10^6/uL (3.85-5.65); White Blood Count 3.78 10^3/uL (3.29-11.43)
[2025-04-27 09:27] LABS: Albumin Level 4.1 g/dL (3.5-5.2); Alkaline Phosphatase 70 U/L (40-130); Anion Gap 16.3 (5-19); Aspartate Amino Transferase 27 U/L (0-40); Blood Urea Nitrogen 16 mg/dL (8-23); Calcium 9.3 mg/dL (8.5-10.5); Carbon Dioxide 24 mmol/L (22-29); Chloride 104 mmol/L (98-107); Creatinine Clr Calc Pharmacy 119.0525; Globulin 2.1 g/dL (1.3-4.6); Glucose 146 mg/dL (65-115); Osmolality Calculated 294 mOsm/kg (285-295); Potassium 4.3 mmol/L (3.5-5.1); Sodium 140 mmol/L (136-145); Total Protein 6.2 g/dL (6.6-8.7)
[2025-04-27 09:37] LABS: Alanine Aminotransferase 19 U/L (0-41)
[2025-05-04] VITALS (12 sets, daily range): BP systolic 122–135; BP diastolic 57–79; PULSE 58–96; RESP 16–18; TEMP 35.7–36.3; O2SAT 92–95
[2025-05-04 07:51] LABS: Hematocrit 39.3 % (37-53); Hemoglobin 13.00 g/dL (11.27-16.99); Mean Corpuscular HGB Conc 33.1 g/dL (30-55); Mean Corpuscular Hemoglobin 30.8 pg (27-33); Mean Corpuscular Volume 93.1 fl (82-101); Nucleated Red Blood Cells % 0 %; Platelet Count 179 10^3/cmm (157-399); Red Blood Count 4.22 10^6/uL (3.85-5.65); White Blood Count 3.57 10^3/uL (3.29-11.43)
[2025-05-04 08:10] LABS: Alanine Aminotransferase 22 U/L (0-41); Albumin Level 4.0 g/dL (3.5-5.2); Alkaline Phosphatase 66 U/L (40-130); Aspartate Amino Transferase 22 U/L (0-40); Blood Urea Nitrogen 14 mg/dL (8-23); Calcium 9.1 mg/dL (8.5-10.5); Carbon Dioxide 26 mmol/L (22-29); Chloride 104 mmol/L (98-107); Creatinine Clr Calc Pharmacy 106.1644; Globulin 2.0 g/dL (1.3-4.6); Glucose 150 mg/dL (65-115); Osmolality Calculated 295 mOsm/kg (285-295); Sodium 141 mmol/L (136-145); Total Protein 6.0 g/dL (6.6-8.7)
[2025-05-04 08:12] LABS: Anion Gap 15.6 (5-19); Potassium 4.6 mmol/L (3.5-5.1)
[2025-05-04] MEDS: diphenhydrAMINE 50 mg/mL SDV 1mL IVP (09:07)
[2025-05-04 09:12] LABS: Glucose Urine UA 3+ (Normal); Nitrate Urine Negative (Negative); Specific Gravity, Urine 1.029 (1.005-1.030)
[2025-05-04 09:17] LABS: Add Urine Microscopic? YES
[2025-05-04 09:18] LABS: Estmated Average Glucose 114; Hemoglobin A1C 5.6 % (4.0-6.0)
[2025-05-04 09:30] LABS: Cholesterol 180 mg/dL (0-200); HDL Cholesterol 36 mg/dL (60-100); Thyroid Stimulating Hormone 2.64 uIU/mL (0.27-4.20); Triglycerides 169 mg/dL (0-150)
[2025-05-04 09:33] LABS: Creatinine Urine, Random 49 mg/dL (39-259); Microalbum Creatinine Ratio Ur 20 mg/dL (0-20)
[2025-05-04] MEDS: obinutuzumab 1,000 MG in sodium chloride 0.9% 250 ML 15 MG IV (10:17)
[2025-05-04] MEDS: diphenhydrAMINE 50 mg/mL SDV 1mL 25 MG IVP (12:44)
== END 2025-05-04 23:59 | disposition home or self-care (01) ==
PROVIDERS: Internal Medicine; PCP Nurse Practitioner; Referring Provider Nurse Practitioner Family; Visit Provider Nurse Practitioner
DX: Z51.11 Encounter for antineoplastic chemotherapy; C91.12 Chronic lymphocytic leukemia of B-cell type in relapse; E11.65 Type 2 diabetes mellitus with hyperglycemia; Z79.52 Long term (current) use of systemic steroids; Z79.899 Other long term (current) drug therapy; Z53.9 Procedure and treatment not carried out, unspecified reason
CPT/HCPCS: 36415; 80053; 80061; 81001; 82044; 83036; 83615; 84443; 85025; 96367; 96375; 96413; 96415; 99213; J1100; J1200; J3490; J7030; J7050; J9301; J9999

== ENCOUNTER 2025-05-18 10:11 | Oncology outpatient (recurring) (ONCR) | payer MEDICARE, OTHER, SELFPAY ==
[2025-05-18 10:58] LABS: Hematocrit 39.6 % (37-53); Hemoglobin 13.20 g/dL (11.27-16.99); Mean Corpuscular HGB Conc 33.3 g/dL (30-55); Mean Corpuscular Hemoglobin 30.7 pg (27-33); Mean Corpuscular Volume 92.1 fl (82-101); Nucleated Red Blood Cells % 0 %; Platelet Count 162 10^3/cmm (157-399); Red Blood Count 4.30 10^6/uL (3.85-5.65); White Blood Count 3.66 10^3/uL (3.29-11.43)
[2025-05-18 11:11] LABS: Alanine Aminotransferase 22 U/L (0-41); Albumin Level 3.8 g/dL (3.5-5.2); Alkaline Phosphatase 81 U/L (40-130); Anion Gap 14.2 (5-19); Aspartate Amino Transferase 22 U/L (0-40); Blood Urea Nitrogen 13 mg/dL (8-23); Calcium 9.1 mg/dL (8.5-10.5); Carbon Dioxide 26 mmol/L (22-29); Chloride 103 mmol/L (98-107); Creatinine Clr Calc Pharmacy 121.4760; Globulin 1.9 g/dL (1.3-4.6); Glucose 174 mg/dL (65-115); Magnesium 1.8 mg/dL (1.7-2.3); Osmolality Calculated 292 mOsm/kg (285-295); Potassium 4.2 mmol/L (3.5-5.1); Sodium 139 mmol/L (136-145); Total Protein 5.7 g/dL (6.6-8.7); Uric Acid 6.6 mg/dL (3.4-7.0)
[2025-05-18 11:27] LABS: Slide Review Slide Review Perform
== END 2025-05-19 23:59 | disposition home or self-care (01) ==
LOC: ONCMED 10:12
PROVIDERS: Internal Medicine; PCP Nurse Practitioner; Referring Provider Nurse Practitioner Family; Visit Provider Nurse Practitioner
DX: C91.12 Chronic lymphocytic leukemia of B-cell type in relapse (principal); Z79.899 Other long term (current) drug therapy; Z79.52 Long term (current) use of systemic steroids
CPT/HCPCS: 80053; 83615; 83735; 84550; 85025; 99213

== ENCOUNTER 2025-06-14 15:00 | Oncology outpatient (recurring) (ONCR) | payer MEDICARE, OTHER, SELFPAY ==
[2025-06-01 10:41] LABS: Hematocrit 39.8 % (37-53); Hemoglobin 13.30 g/dL (11.27-16.99); Mean Corpuscular HGB Conc 33.4 g/dL (30-55); Mean Corpuscular Hemoglobin 31.1 pg (27-33); Mean Corpuscular Volume 93.0 fl (82-101); Nucleated Red Blood Cells % 0 %; Platelet Count 159 10^3/cmm (157-399); Red Blood Count 4.28 10^6/uL (3.85-5.65); White Blood Count 2.18 10^3/uL (3.29-11.43)
[2025-06-01 11:07] LABS: Alanine Aminotransferase 29 U/L (0-41); Albumin Level 4.1 g/dL (3.5-5.2); Alkaline Phosphatase 72 U/L (40-130); Anion Gap 13.5 (5-19); Aspartate Amino Transferase 24 U/L (0-40); Blood Urea Nitrogen 12 mg/dL (8-23); Calcium 9.1 mg/dL (8.5-10.5); Carbon Dioxide 28 mmol/L (22-29); Chloride 104 mmol/L (98-107); Globulin 1.8 g/dL (1.3-4.6); Glucose 205 mg/dL (65-115); Magnesium 1.8 mg/dL (1.7-2.3); Osmolality Calculated 298 mOsm/kg (285-295); Potassium 4.5 mmol/L (3.5-5.1); Prostate Specific Antigen 6.420 ng/mL (0-4); Sodium 141 mmol/L (136-145); Total Protein 5.9 g/dL (6.6-8.7); Uric Acid 6.4 mg/dL (3.4-7.0)
[2025-06-08 08:03] LABS: Hematocrit 37.7 % (37-53); Hemoglobin 12.70 g/dL (11.27-16.99); Mean Corpuscular HGB Conc 33.7 g/dL (30-55); Mean Corpuscular Hemoglobin 30.9 pg (27-33); Mean Corpuscular Volume 91.7 fl (82-101); Nucleated Red Blood Cells % 0 %; Platelet Count 187 10^3/cmm (157-399); Red Blood Count 4.11 10^6/uL (3.85-5.65); White Blood Count 1.74 10^3/uL (3.29-11.43)
[2025-06-08 08:25] LABS: Alanine Aminotransferase 23 U/L (0-41); Albumin Level 4.0 g/dL (3.5-5.2); Alkaline Phosphatase 59 U/L (40-130); Anion Gap 10.3 (5-19); Aspartate Amino Transferase 22 U/L (0-40); Blood Urea Nitrogen 13 mg/dL (8-23); Calcium 8.6 mg/dL (8.5-10.5); Carbon Dioxide 27 mmol/L (22-29); Chloride 108 mmol/L (98-107); Globulin 1.6 g/dL (1.3-4.6); Glucose 174 mg/dL (65-115); Osmolality Calculated 296 mOsm/kg (285-295); Potassium 4.3 mmol/L (3.5-5.1); Slide Review Slide Review Perform; Sodium 141 mmol/L (136-145); Total Protein 5.6 g/dL (6.6-8.7); Uric Acid 5.6 mg/dL (3.4-7.0)
[2025-06-14 15:00] LABS: Hematocrit 38.1 % (37-53); Hemoglobin 12.70 g/dL (11.27-16.99); Mean Corpuscular HGB Conc 33.3 g/dL (30-55); Mean Corpuscular Hemoglobin 30.8 pg (27-33); Mean Corpuscular Volume 92.5 fl (82-101); Nucleated Red Blood Cells % 0 %; Platelet Count 208 10^3/cmm (157-399); Red Blood Count 4.12 10^6/uL (3.85-5.65); White Blood Count 3.36 10^3/uL (3.29-11.43)
[2025-06-14 15:22] LABS: Alanine Aminotransferase 21 U/L (0-41); Albumin Level 4.1 g/dL (3.5-5.2); Alkaline Phosphatase 59 U/L (40-130); Anion Gap 12.4 (5-19); Aspartate Amino Transferase 22 U/L (0-40); Blood Urea Nitrogen 13 mg/dL (8-23); Calcium 8.8 mg/dL (8.5-10.5); Carbon Dioxide 29 mmol/L (22-29); Chloride 104 mmol/L (98-107); Globulin 1.5 g/dL (1.3-4.6); Glucose 166 mg/dL (65-115); Osmolality Calculated 296 mOsm/kg (285-295); Potassium 4.4 mmol/L (3.5-5.1); Sodium 141 mmol/L (136-145); Total Protein 5.6 g/dL (6.6-8.7); Uric Acid 6.0 mg/dL (3.4-7.0)
== END 2025-06-18 23:59 | disposition home or self-care (01) ==
PROVIDERS: Internal Medicine; PCP Nurse Practitioner; Referring Provider Nurse Practitioner Family; Visit Provider Nurse Practitioner
DX: Z53.9 Procedure and treatment not carried out, unspecified reason; C91.12 Chronic lymphocytic leukemia of B-cell type in relapse; Z79.899 Other long term (current) drug therapy
CPT/HCPCS: 36415; 80053; 83615; 83735; 84153; 84550; 85025; 99213

== ENCOUNTER 2025-06-22 07:30 | Oncology outpatient (recurring) (ONCR) | payer MEDICARE, OTHER, SELFPAY ==
[2025-06-22] VITALS (10 sets, daily range): BP systolic 129–149; BP diastolic 69–83; PULSE 52–87; RESP 16–17; TEMP 35.9–36.4; O2SAT 93–96
[2025-06-22 08:01] LABS: Hematocrit 39.1 % (37-53); Hemoglobin 13.50 g/dL (11.27-16.99); Mean Corpuscular HGB Conc 34.5 g/dL (30-55); Mean Corpuscular Hemoglobin 30.8 pg (27-33); Mean Corpuscular Volume 89.3 fl (82-101); Nucleated Red Blood Cells % 0 %; Platelet Count 227 10^3/cmm (157-399); Red Blood Count 4.38 10^6/uL (3.85-5.65); White Blood Count 4.69 10^3/uL (3.29-11.43)
[2025-06-22 08:33] LABS: Alanine Aminotransferase 21 U/L (0-41); Albumin Level 4.1 g/dL (3.5-5.2); Alkaline Phosphatase 63 U/L (40-130); Anion Gap 13.0 (5-19); Aspartate Amino Transferase 22 U/L (0-40); Blood Urea Nitrogen 9 mg/dL (8-23); Calcium 8.8 mg/dL (8.5-10.5); Carbon Dioxide 27 mmol/L (22-29); Chloride 103 mmol/L (98-107); Globulin 1.9 g/dL (1.3-4.6); Glucose 213 mg/dL (65-115); Osmolality Calculated 293 mOsm/kg (285-295); Potassium 4.0 mmol/L (3.5-5.1); Sodium 139 mmol/L (136-145); Total Protein 6.0 g/dL (6.6-8.7); Uric Acid 5.7 mg/dL (3.4-7.0)
[2025-06-22] MEDS: diphenhydrAMINE 50 mg/mL SDV 1mL IVP (09:14)
[2025-06-22] MEDS: obinutuzumab 1,000 MG in sodium chloride 0.9% 250 ML 15 MG IV (10:36)
[2025-06-22] MEDS: methylPREDNISolone sod succ 125 mg/2 mL INJ IVP (13:42)
--- NOTE | 2025-06-22 14:09 | PC.NURSE ---
Infusion reaction: Patient hit his call light and stated he felt like his throat was closing. This nurse stopped the Obinutuzumab at 13:39 and disconnected the infusion from patient. The rate of sodium chloride 0.9% was increased. Patient's vitals were BP: 152/86, HR: 70, RR: 18, SpO2: 95%. Solu medrol 125 mg administered via IVP at 1342. Neha Santiago NP notified. Neha assessed the patient and stated his lungs were CTA. Neha stated it was okay to restart patient's Obinutuzumab infusion since patient's symptoms subsided.
== END 2025-06-22 23:59 | disposition home or self-care (01) ==
PROVIDERS: Internal Medicine; PCP Nurse Practitioner; Referring Provider Nurse Practitioner Family; Visit Provider Nurse Practitioner
DX: Z51.11 Encounter for antineoplastic chemotherapy; C91.12 Chronic lymphocytic leukemia of B-cell type in relapse; Z79.899 Other long term (current) drug therapy; Z79.52 Long term (current) use of systemic steroids; Z53.9 Procedure and treatment not carried out, unspecified reason
CPT/HCPCS: 36415; 80053; 83615; 84550; 85025; 96367; 96375; 96413; 96415; 99214; J1100; J1200; J2919; J7050; J9301; J9999

== ENCOUNTER 2025-07-19 07:30 | Oncology outpatient (recurring) (ONCR) | payer MEDICARE, OTHER, SELFPAY ==
[2025-06-29 13:47] LABS: Hematocrit 39.1 % (37-53); Hemoglobin 13.30 g/dL (11.27-16.99); Mean Corpuscular HGB Conc 34.0 g/dL (30-55); Mean Corpuscular Hemoglobin 31.0 pg (27-33); Mean Corpuscular Volume 91.1 fl (82-101); Nucleated Red Blood Cells % 0 %; Platelet Count 176 10^3/cmm (157-399); Red Blood Count 4.29 10^6/uL (3.85-5.65); White Blood Count 4.61 10^3/uL (3.29-11.43)
[2025-06-29 14:04] LABS: Alanine Aminotransferase 23 U/L (0-41); Albumin Level 4.0 g/dL (3.5-5.2); Alkaline Phosphatase 59 U/L (40-130); Anion Gap 10.0 (5-19); Aspartate Amino Transferase 19 U/L (0-40); Blood Urea Nitrogen 9 mg/dL (8-23); Calcium 8.7 mg/dL (8.5-10.5); Carbon Dioxide 30 mmol/L (22-29); Chloride 102 mmol/L (98-107); Globulin 1.7 g/dL (1.3-4.6); Glucose 182 mg/dL (65-115); Osmolality Calculated 289 mOsm/kg (285-295); Potassium 4.0 mmol/L (3.5-5.1); Sodium 138 mmol/L (136-145); Total Protein 5.7 g/dL (6.6-8.7)
[2025-07-06 10:09] LABS: Hematocrit 41.7 % (37-53); Hemoglobin 14.30 g/dL (11.27-16.99); Mean Corpuscular HGB Conc 34.3 g/dL (30-55); Mean Corpuscular Hemoglobin 31.0 pg (27-33); Mean Corpuscular Volume 90.5 fl (82-101); Nucleated Red Blood Cells % 0 %; Platelet Count 166 10^3/cmm (157-399); Red Blood Count 4.61 10^6/uL (3.85-5.65); White Blood Count 4.46 10^3/uL (3.29-11.43)
[2025-07-06 10:38] LABS: Alanine Aminotransferase 27 U/L (0-41); Albumin Level 4.2 g/dL (3.5-5.2); Alkaline Phosphatase 58 U/L (40-130); Anion Gap 11.2 (5-19); Aspartate Amino Transferase 27 U/L (0-40); Blood Urea Nitrogen 11 mg/dL (8-23); Calcium 9.2 mg/dL (8.5-10.5); Carbon Dioxide 30 mmol/L (22-29); Chloride 103 mmol/L (98-107); Globulin 1.7 g/dL (1.3-4.6); Glucose 141 mg/dL (65-115); Osmolality Calculated 292 mOsm/kg (285-295); Potassium 4.2 mmol/L (3.5-5.1); Sodium 140 mmol/L (136-145); Total Protein 5.9 g/dL (6.6-8.7)
[2025-07-12 07:38] LABS: Hematocrit 41.8 % (37-53); Hemoglobin 14.40 g/dL (11.27-16.99); Mean Corpuscular HGB Conc 34.4 g/dL (30-55); Mean Corpuscular Hemoglobin 31.5 pg (27-33); Mean Corpuscular Volume 91.5 fl (82-101); Nucleated Red Blood Cells % 0 %; Platelet Count 156 10^3/cmm (157-399); Red Blood Count 4.57 10^6/uL (3.85-5.65); White Blood Count 3.97 10^3/uL (3.29-11.43)
[2025-07-12 07:52] LABS: Alanine Aminotransferase 26 U/L (0-41); Albumin Level 4.1 g/dL (3.5-5.2); Alkaline Phosphatase 65 U/L (40-130); Anion Gap 10.5 (5-19); Aspartate Amino Transferase 24 U/L (0-40); Blood Urea Nitrogen 11 mg/dL (8-23); Calcium 9.2 mg/dL (8.5-10.5); Carbon Dioxide 31 mmol/L (22-29); Chloride 103 mmol/L (98-107); Globulin 1.8 g/dL (1.3-4.6); Glucose 171 mg/dL (65-115); Osmolality Calculated 293 mOsm/kg (285-295); Potassium 4.5 mmol/L (3.5-5.1); Sodium 140 mmol/L (136-145); Total Protein 5.9 g/dL (6.6-8.7)
[2025-07-18 12:25] VITALS: BP 174/78; PULSE 78; RESP 16; TEMP 36.6; O2SAT 97
[2025-07-19 07:46] LABS: Hematocrit 40.0 % (37-53); Hemoglobin 13.70 g/dL (11.27-16.99); Mean Corpuscular HGB Conc 34.3 g/dL (30-55); Mean Corpuscular Hemoglobin 31.1 pg (27-33); Mean Corpuscular Volume 90.9 fl (82-101); Nucleated Red Blood Cells % 0 %; Platelet Count 139 10^3/cmm (157-399); Red Blood Count 4.40 10^6/uL (3.85-5.65); White Blood Count 5.06 10^3/uL (3.29-11.43)
[2025-07-19 08:16] LABS: Alanine Aminotransferase 34 U/L (0-41); Albumin Level 4.0 g/dL (3.5-5.2); Alkaline Phosphatase 73 U/L (40-130); Aspartate Amino Transferase 30 U/L (0-40); Blood Urea Nitrogen 12 mg/dL (8-23); Calcium 8.9 mg/dL (8.5-10.5); Carbon Dioxide 27 mmol/L (22-29); Chloride 104 mmol/L (98-107); Globulin 2.0 g/dL (1.3-4.6); Glucose 159 mg/dL (65-115); Osmolality Calculated 297 mOsm/kg (285-295); Sodium 142 mmol/L (136-145); Total Protein 6.0 g/dL (6.6-8.7)
[2025-07-19 08:18] LABS: Anion Gap 15.1 (5-19); Potassium 4.1 mmol/L (3.5-5.1)
[2025-07-19] MEDS: diphenhydrAMINE 50 mg/mL SDV 1mL IVP (09:14)
[2025-07-19] MEDS: methylPREDNISolone sod succ 125 mg/2 mL INJ IVP (09:21)
[2025-07-19] MEDS: obinutuzumab 1,000 MG in sodium chloride 0.9% 250 ML 35 MG IV (10:13)
[2025-07-19 10:45] VITALS: BP 148/83; PULSE 61; RESP 18; TEMP 36.3; O2SAT 98
[2025-07-19 11:15] VITALS: BP 155/76; PULSE 77; RESP 17; TEMP 36.4; O2SAT 96
[2025-07-19 11:50] VITALS: BP 165/92; PULSE 77; RESP 17; TEMP 36.6; O2SAT 98
[2025-07-19 13:48] VITALS: BP 164/88; PULSE 87; RESP 17; TEMP 36; O2SAT 94
== END 2025-07-19 23:59 | disposition home or self-care (01) ==
PROVIDERS: Nurse Practitioner; PCP Nurse Practitioner; Referring Provider Nurse Practitioner Family; Visit Provider Internal Medicine
DX: Z53.9 Procedure and treatment not carried out, unspecified reason (principal); Z51.11 Encounter for antineoplastic chemotherapy; C91.12 Chronic lymphocytic leukemia of B-cell type in relapse; Z79.899 Other long term (current) drug therapy
CPT/HCPCS: 36415; 80053; 85025; 96367; 96375; 96413; 96415; 99213; 99214; J1100; J1200; J2919; J3490; J7050; J9301; J9999